=== PATIENT | male | born 1940 | race Caucasian/White ===

== ENCOUNTER 2016-11-20 19:37 | Inpatient (IN) | payer MEDICARE, MEDICAID ==
[~2016-11-20] VITALS: Ht 167.6 cm; Wt 70.3 kg
[~2016-11-20 19:37] MED LIST: ALLO100T25 PO; ALPR0.5T8 PO; AMIN30LI4 PO; AMLO10TA4 PO; ASPI81TA2 PO; ATOR10TA PO; CARV3.12 PO; CITA20TA19 PO; DEXT1CAP3 PO; DONE5TAB34 PO; ENAL10TA39 PO; FOLI0.8T23 PO; LAMO25TA5 PO; MEGE40TA PO; MIRT15TA7 PO; NAPR500T3 PO; OLAN5TAB6 SL; SENN8.6T6 PO; TAMS-12 PO; TEMA30CA5 PO
[2016-11-20] MEDS ORDERED: IV NS 0.9% 1,000 ML BAG IV ONE (20:00)
[2016-11-20] MEDS ORDERED: IV NS 0.9% 1,000 ML ONE (20:00)
[2016-11-20] MEDS ORDERED: IV SET PRIMARY 1 EA INFUS.SET MC ONE (20:00)
[2016-11-20 20:21] LABS: BASOPHILS # (AUTO) 0.1 /CMM (0.0-0.2); BASOPHILS % (AUTO) 0.6 % (0.0-2.0); DIFF TOTAL % 100 %; EOSINOPHILS % (AUTO) 0.4 % (0.0-6.0); HEMATOCRIT 34 % (39-51); HEMOGLOBIN 11.6 g/dL (13.5-17.5); LYMPHOCYTES # (AUTO) 1.5 /CMM (0.8-4.8); LYMPHOCYTES % (AUTO) 14.5 % (20.0-44.0); MEAN CORPUSCULAR HEMOGLOBIN 30 PG (26.0-33.0); MEAN CORPUSCULAR HGB CONC 34 g/dl (31.0-36.0); MEAN CORPUSCULAR VOLUME 89 fL (80-96); MONOCYTES # (AUTO) 1.1 /CMM (0.1-1.30); MONOCYTES % (AUTO) 11.2 % (2.0-12.0); NEUTROPHILS # (AUTO) 7.5 /CMM (1.8-8.9); NEUTROPHILS % (AUTO) 73.3 % (43.0-81.0); PLATELET COUNT (AUTO) 177 /CMM (150-450); RED BLOOD CELL COUNT(AUTO) 3.86 MIL/uL (4.5-6.0); WHITE BLOOD COUNT (AUTO) 10.2 K/uL (4.3-11.0)
[2016-11-20 20:31] LABS: CALCIUM, SERUM 11.2 mg/dL (8.5-10.1); CREATININE 4.7 mg/dL (0.6-1.3); POTASSIUM 3.4 mmol/L (3.5-5.1)
[2016-11-20 20:34] LABS: INR 1.09 (0.87-1.13); PROTHROMBIN TIME 11.4 SECS (9.5-12.7)
[2016-11-20 20:36] LABS: BILIRUBIN,DIRECT 0.1 mg/dL (0.0-0.2); BILIRUBIN,TOTAL 0.3 mg/dL (0.2-1.0); INDIRECT BILIRUBIN 0.2 mg/dL (0.0-1.1); TOTAL PROTEIN, SERUM 6.8 g/dL (6.4-8.2)
[2016-11-20 20:46] LABS: LACTIC ACID 0.7 mmol/L (0.4-2.0)
[2016-11-20 20:56] LABS: TROPONIN I 0.07 ng/mL (0.00-0.056)
[2016-11-20 21:01] LABS: THYROID STIMULATING HORMONE 2.717 uIU/mL (0.358-3.74)
[2016-11-20] MEDS ORDERED: IV D5W 250 ML IV ONE (21:22)
[2016-11-20] MEDS ORDERED: IV SET PRIMARY PUMP SET 1 EA INFUS.SET MC ONE (21:22)
[2016-11-20] MEDS ORDERED: VANCOMYCIN 1 GM VIAL ONE (21:22)
[2016-11-20] MEDS ORDERED: VANCOMYCIN 1 GM in IV D5W 250 ML IV ONE (21:30)
[2016-11-20] MEDS ORDERED: ENALAPRILAT DIHYD. (2.5MG/ML) 1.25 MG/ML VIAL IV ONE ×2 (21:42→22:00)
[2016-11-20] MEDS ORDERED: HYDROCODONE/APAP 5/325MG 1 EACH TABLET PO PRN (22:00)
[2016-11-20] MEDS ORDERED: ZOLPIDEM TARTRATE 5 MG TABLET PO PRN (22:00)
[2016-11-20] MEDS ORDERED: SENNOSIDES 8.6 MG TABLET PO PRN (22:00)
[2016-11-20] MEDS ORDERED: MAGNESIUM HYDROXIDE 30 ML UDC PO PRN (22:00)
[2016-11-20] MEDS ORDERED: Z GUARD REMEDY 2 OZ OINT TP PRN (22:00)
[2016-11-20] MEDS ORDERED: OLANZAPINE 5 MG/TAB.RAPDIS SL PRN (22:00)
[2016-11-20] MEDS ORDERED: ACETAMINOPHEN 325 MG TABLET PO PRN (22:00)
[2016-11-20] MEDS ORDERED: AMLODIPINE BESYLATE 10 MG TABLET PO SCH (22:00)
[2016-11-20] MEDS ORDERED: ONDANSETRON HCL/PF 4 MG/2 ML VIAL IVP PRN (22:00)
[2016-11-20] MEDS ORDERED: MAG HYDROX/AL HYDROX/SIMETH 30 ML UDC PO PRN (22:00)
[2016-11-20] MEDS ORDERED: ALPRAZOLAM 0.5 MG TABLET PO PRN (22:00)
[2016-11-20 22:15] VITALS: BP 139/85
[2016-11-20] MEDS ORDERED: ENALAPRILAT DIHYD. (2.5MG/ML) 1.25 MG/ML VIAL IV PRN (22:30)
[2016-11-20 23:00] VITALS: BP 139/85
[2016-11-20] MEDS ORDERED: MIRTAZAPINE 15 MG TABLET ONE (23:00)
[2016-11-20] MEDS ORDERED: ATORVASTATIN 10 MG TABLET ONE (23:01)
[2016-11-20] MEDS ORDERED: DONEPEZIL 5 MG TABLET ONE (23:01)
[2016-11-20] MEDS ORDERED: AMLODIPINE BESYLATE 10 MG TABLET ONE (23:02)
[2016-11-20] MEDS: ATORVASTATIN 10 MG TABLET PO SCH (23:18)
[2016-11-20] MEDS: DONEPEZIL 5 MG TABLET PO SCH (23:18)
[2016-11-20] MEDS: MIRTAZAPINE 15 MG TABLET PO SCH (23:19)
[2016-11-21] MEDS ORDERED: IV NS 0.9% 1,000 ML BAG IV PRN ×2 (01:30→03:30)
[2016-11-21 01:58] VITALS: BP 184/89
[2016-11-21] MEDS ORDERED: hydrALAZINE HCL 25 MG TABLET ONE (02:12)
[2016-11-21] MEDS ORDERED: hydrALAZINE HCL 25 MG TABLET PO PRN (02:30)
[2016-11-21] MEDS ORDERED: IV SET PRIMARY PUMP SET 1 EA INFUS.SET MC ONE (03:01)
[2016-11-21 04:00] VITALS: BP 158/59
[2016-11-21 07:00] VITALS: BP 131/66
[2016-11-21 08:13] LABS: CALCIUM, SERUM 10.8 mg/dL (8.5-10.1); PHOSPHORUS 3.9 mg/dL (2.5-4.9); POTASSIUM 3.4 mmol/L (3.5-5.1)
[2016-11-21 08:22] LABS: BASOPHILS % (AUTO) 0.3 % (0.0-2.0); DIFF TOTAL % 100 %; EOSINOPHILS # (AUTO) 0.1 /CMM (0.0-0.7); EOSINOPHILS % (AUTO) 1.3 % (0.0-6.0); HEMATOCRIT 31 % (39-51); HEMOGLOBIN 10.3 g/dL (13.5-17.5); LYMPHOCYTES # (AUTO) 1.2 /CMM (0.8-4.8); LYMPHOCYTES % (AUTO) 13.4 % (20.0-44.0); MEAN CORPUSCULAR HEMOGLOBIN 30 PG (26.0-33.0); MEAN CORPUSCULAR HGB CONC 34 g/dl (31.0-36.0); MEAN CORPUSCULAR VOLUME 90 fL (80-96); MONOCYTES # (AUTO) 1.1 /CMM (0.1-1.30); MONOCYTES % (AUTO) 12.6 % (2.0-12.0); NEUTROPHILS # (AUTO) 6.3 /CMM (1.8-8.9); NEUTROPHILS % (AUTO) 72.4 % (43.0-81.0); PLATELET COUNT (AUTO) 156 /CMM (150-450); RED BLOOD CELL COUNT(AUTO) 3.44 MIL/uL (4.5-6.0); WHITE BLOOD COUNT (AUTO) 8.7 K/uL (4.3-11.0)
[2016-11-21] MEDS ORDERED: Z GUARD REMEDY 2 OZ OINT TP PRN (08:30)
[2016-11-21] MEDS: LamoTRIgine 25 MG TABLET PO SCH (09:03)
[2016-11-21] MEDS: CITALOPRAM HYDROBROMIDE 20 MG TABLET PO SCH (09:03)
[2016-11-21] MEDS: ASPIRIN 81 MG TAB.CHEW PO SCH (09:03)
[2016-11-21] MEDS: NAPROXEN 250 MG TABLET PO SCH ×2 (09:04→16:54)
[2016-11-21] MEDS: TAMSULOSIN 0.4 MG CAP.SR.24H PO SCH (09:04)
[2016-11-21] MEDS: MEGESTROL ACETATE 40 MG TABLET PO SCH ×2 (09:04→16:54)
[2016-11-21] MEDS: PANTOPRAZOLE 40 MG TABLET.DR PO SCH (09:04)
[2016-11-21] MEDS: ALLOPURINOL 100 MG TABLET PO SCH (09:04)
[2016-11-21] MEDS: CARVEDILOL 3.125 MG TABLET PO SCH ×2 (09:05→21:00)
[2016-11-21] MEDS: Z GUARD REMEDY 2 OZ OINT TP SCH ×2 (11:31→17:49)
[2016-11-21 12:00] VITALS: BP 151/77
[2016-11-21 16:00] VITALS: BP 142/66
[2016-11-21] MEDS: RENAL NOVASOURCE (8OZ) 1 EA BOX PO SCH (18:30)
[2016-11-21 20:00] VITALS: BP 122/50
[2016-11-21] MEDS: MIRTAZAPINE 15 MG TABLET PO SCH (21:44)
[2016-11-21] MEDS: DONEPEZIL 5 MG TABLET PO SCH (21:44)
[2016-11-21] MEDS: ATORVASTATIN 10 MG TABLET PO SCH (21:44)
[2016-11-21] MEDS: IV NS 0.9% 1,000 ML IV PRN (22:31)
[2016-11-21] MEDS ORDERED: OLANZAPINE 10 MG VIAL IM PRN (23:30)
[2016-11-22] VITALS: BP 146/76
[2016-11-22 04:00] VITALS: BP 135/72
[2016-11-22 06:58] VITALS: BP 140/70
[2016-11-22] MEDS: RENAL NOVASOURCE (8OZ) 1 EA BOX PO SCH ×2 (08:00→17:51)
[2016-11-22 08:26] LABS: BASOPHILS % (AUTO) 0.5 % (0.0-2.0); DIFF TOTAL % 100 %; EOSINOPHILS # (AUTO) 0.3 /CMM (0.0-0.7); EOSINOPHILS % (AUTO) 4.7 % (0.0-6.0); HEMATOCRIT 30 % (39-51); HEMOGLOBIN 10.1 g/dL (13.5-17.5); LYMPHOCYTES # (AUTO) 1.1 /CMM (0.8-4.8); LYMPHOCYTES % (AUTO) 17.7 % (20.0-44.0); MEAN CORPUSCULAR HEMOGLOBIN 30 PG (26.0-33.0); MEAN CORPUSCULAR HGB CONC 34 g/dl (31.0-36.0); MEAN CORPUSCULAR VOLUME 89 fL (80-96); MONOCYTES # (AUTO) 0.9 /CMM (0.1-1.30); MONOCYTES % (AUTO) 13.8 % (2.0-12.0); NEUTROPHILS # (AUTO) 4.1 /CMM (1.8-8.9); NEUTROPHILS % (AUTO) 63.3 % (43.0-81.0); PLATELET COUNT (AUTO) 126 /CMM (150-450); RED BLOOD CELL COUNT(AUTO) 3.32 MIL/uL (4.5-6.0); WHITE BLOOD COUNT (AUTO) 6.4 K/uL (4.3-11.0)
[2016-11-22 08:41] LABS: CALCIUM, SERUM 9.4 mg/dL (8.5-10.1); CREATININE 3.8 mg/dL (0.6-1.3); PHOSPHORUS 3.3 mg/dL (2.5-4.9); POTASSIUM 3.5 mmol/L (3.5-5.1)
[2016-11-22] MEDS ORDERED: ALBUMIN 25% 25 GM in PREMIX 1 EA IV PRN (09:00)
[2016-11-22] MEDS: Z GUARD REMEDY 2 OZ OINT TP SCH ×2 (09:00→17:50)
[2016-11-22] MEDS: MEGESTROL ACETATE 40 MG TABLET PO SCH ×2 (11:35→17:50)
[2016-11-22] MEDS: TAMSULOSIN 0.4 MG CAP.SR.24H PO SCH (11:35)
[2016-11-22] MEDS: CITALOPRAM HYDROBROMIDE 20 MG TABLET PO SCH (11:36)
[2016-11-22] MEDS: ASPIRIN 81 MG TAB.CHEW PO SCH (11:36)
[2016-11-22] MEDS: LamoTRIgine 25 MG TABLET PO SCH (11:36)
[2016-11-22] MEDS: PANTOPRAZOLE 40 MG TABLET.DR PO SCH (11:36)
[2016-11-22] MEDS: ALLOPURINOL 100 MG TABLET PO SCH (11:37)
[2016-11-22] MEDS: NAPROXEN 250 MG TABLET PO SCH (11:37)
[2016-11-22] MEDS: CARVEDILOL 3.125 MG TABLET PO SCH ×2 (11:38→21:55)
[2016-11-22] MEDS: AMLODIPINE BESYLATE 10 MG TABLET PO SCH (11:43)
[2016-11-22] MEDS ORDERED: NAPROXEN 250 MG TABLET PO PRN (12:30)
[2016-11-22 16:00] VITALS: BP 131/66
[2016-11-22 20:00] VITALS: BP 112/68
[2016-11-22] MEDS: MIRTAZAPINE 15 MG TABLET PO SCH (21:55)
[2016-11-22] MEDS: ATORVASTATIN 10 MG TABLET PO SCH (21:55)
[2016-11-22] MEDS: DONEPEZIL 5 MG TABLET PO SCH (21:55)
[2016-11-22 22:00] VITALS: BP 117/55
[2016-11-23] MEDS: IV NS 0.9% 1,000 ML IV PRN (04:10)
[2016-11-23 07:04] LABS: CALCIUM, SERUM 9.4 mg/dL (8.5-10.1); CREATININE 2.9 mg/dL (0.6-1.3); POTASSIUM 3.4 mmol/L (3.5-5.1)
[2016-11-23 08:00] VITALS: BP 138/53
[2016-11-23] MEDS: PANTOPRAZOLE 40 MG TABLET.DR PO SCH (09:09)
[2016-11-23] MEDS: ALLOPURINOL 100 MG TABLET PO SCH (09:09)
[2016-11-23] MEDS: ASPIRIN 81 MG TAB.CHEW PO SCH (09:09)
[2016-11-23] MEDS: MEGESTROL ACETATE 40 MG TABLET PO SCH ×2 (09:09→17:05)
[2016-11-23] MEDS: LamoTRIgine 25 MG TABLET PO SCH (09:09)
[2016-11-23] MEDS: OLANZAPINE 2.5 MG TABLET PO SCH ×2 (09:09→17:05)
[2016-11-23] MEDS: RENAL NOVASOURCE (8OZ) 1 EA BOX PO SCH ×2 (09:11→17:05)
[2016-11-23] MEDS: CARVEDILOL 3.125 MG TABLET PO SCH ×2 (09:11→21:10)
[2016-11-23] MEDS: Z GUARD REMEDY 2 OZ OINT TP SCH ×2 (09:12→18:11)
[2016-11-23] MEDS: TAMSULOSIN 0.4 MG CAP.SR.24H PO SCH (09:49)
[2016-11-23 10:11] LABS: VIT D, 25-HYDROXY 57.9 ng/mL (30.0-100.0)
[2016-11-23] MEDS ORDERED: POTASSIUM CHLORIDE 20 MEQ TAB.PRT.SR PO ONE (11:00)
[2016-11-23 16:00] VITALS: BP 166/85
[2016-11-23 20:00] VITALS: BP 160/78
[2016-11-23] MEDS: DONEPEZIL 5 MG TABLET PO SCH (21:09)
[2016-11-23] MEDS: MIRTAZAPINE 15 MG TABLET PO SCH (21:11)
[2016-11-23] MEDS: ATORVASTATIN 10 MG TABLET PO SCH (21:11)
[2016-11-23 22:00] VITALS: BP 117/55
[2016-11-24] MEDS: IV NS 0.9% 1,000 ML IV PRN (01:09)
[2016-11-24 07:44] LABS: BASOPHILS % (AUTO) 0.4 % (0.0-2.0); EOSINOPHILS % (AUTO) 3.8 % (0.0-6.0); HEMATOCRIT 26 % (39-51); LYMPHOCYTES % (AUTO) 24.2 % (20.0-44.0); MEAN CORPUSCULAR HEMOGLOBIN 30 PG (26.0-33.0); MEAN CORPUSCULAR HGB CONC 34 g/dl (31.0-36.0); MEAN CORPUSCULAR VOLUME 88 fL (80-96); NEUTROPHILS % (AUTO) 57.6 % (43.0-81.0); PLATELET COUNT (AUTO) 132 /CMM (150-450); WHITE BLOOD COUNT (AUTO) 6.3 K/uL (4.3-11.0)
[2016-11-24 07:45] LABS: DIFF TOTAL % 100 %; EOSINOPHILS # (AUTO) 0.2 /CMM (0.0-0.7); LYMPHOCYTES # (AUTO) 1.5 /CMM (0.8-4.8); MONOCYTES # (AUTO) 0.9 /CMM (0.1-1.30); NEUTROPHILS # (AUTO) 3.6 /CMM (1.8-8.9)
[2016-11-24 08:00] VITALS: BP 144/79
[2016-11-24 08:14] LABS: CALCIUM, SERUM 10.1 mg/dL (8.5-10.1); CREATININE 3.8 mg/dL (0.6-1.3); PHOSPHORUS 3.9 mg/dL (2.5-4.9)
[2016-11-24] MEDS ORDERED: OLAN10VI IM (09:20)
[2016-11-24] MEDS ORDERED: Olanzapine PO (09:20)
[2016-11-24] MEDS ORDERED: Nutritional Supplement PO (09:20)
[2016-11-24] MEDS: PANTOPRAZOLE 40 MG TABLET.DR PO SCH (09:28)
[2016-11-24] MEDS: ASPIRIN 81 MG TAB.CHEW PO SCH (09:28)
[2016-11-24] MEDS: MEGESTROL ACETATE 40 MG TABLET PO SCH (09:28)
[2016-11-24] MEDS: TAMSULOSIN 0.4 MG CAP.SR.24H PO SCH (09:28)
[2016-11-24] MEDS: ALLOPURINOL 100 MG TABLET PO SCH (09:28)
[2016-11-24] MEDS: CARVEDILOL 3.125 MG TABLET PO SCH (09:29)
[2016-11-24] MEDS: LamoTRIgine 25 MG TABLET PO SCH (09:29)
[2016-11-24] MEDS: OLANZAPINE 2.5 MG TABLET PO SCH (09:29)
[2016-11-24] MEDS: Z GUARD REMEDY 2 OZ OINT TP SCH (09:30)
[2016-11-24 09:31] VITALS: BP 144/79
[2016-11-24] MEDS: AMLODIPINE BESYLATE 10 MG TABLET PO SCH (09:31)
[2016-11-24] MEDS: RENAL NOVASOURCE (8OZ) 1 EA BOX PO SCH (09:31)
== END 2016-11-24 14:30 | DRG 280 ==
LOC: ER 19:38 → TELE 22:08 → MED 11-22 10:47
PROVIDERS: ADMIT Internal Medicine; ATTEND Internal Medicine
PROC: 5A1D60Z (ICD-10-PCS; principal; 2016-11-21)
DX: I13.2 Hypertensive heart and chronic kidney disease with heart failure and with stage 5 chronic kidney disease, or end stage renal disease (principal); I21.4 Non-ST elevation (NSTEMI) myocardial infarction; N18.6 End stage renal disease; G93.41 Metabolic encephalopathy; I50.32 Chronic diastolic (congestive) heart failure; F33.9 Major depressive disorder, recurrent, unspecified; E11.22 Type 2 diabetes mellitus with diabetic chronic kidney disease; Z99.2 Dependence on renal dialysis; D63.8 Anemia in other chronic diseases classified elsewhere; E03.9 Hypothyroidism, unspecified; E83.52 Hypercalcemia; E87.6 Hypokalemia; E88.09 Other disorders of plasma-protein metabolism, not elsewhere classified; I25.10 Atherosclerotic heart disease of native coronary artery without angina pectoris; I25.2 Old myocardial infarction; K21.9 Gastro-esophageal reflux disease without esophagitis; Z86.73 Personal history of transient ischemic attack (TIA), and cerebral infarction without residual deficits; Z66 Do not resuscitate; F41.9 Anxiety disorder, unspecified; M10.9 Gout, unspecified; J01.90 Acute sinusitis, unspecified; Z87.11 Personal history of peptic ulcer disease; Z98.890 Other specified postprocedural states; F01.50 Vascular dementia, unspecified severity, without behavioral disturbance, psychotic disturbance, mood disturbance, and anxiety
CPT/HCPCS: 36415; 70450-TC; 71010-TC; 80048-TC; 80061-TC; 80076-TC; 82140-TC; 82306; 82652; 83605-TC; 83735-TC; 83970; 84100-TC; 84443-TC; 84484-TC; 85025-TC; 85730-TC; 87040-TC; 87081-TC; 92521; 94799-TC; 97001-TC; A4216; A4606; A6403; C1751; J3370; J3490; J7030; J7060; P9047; Z7610

== ENCOUNTER 2016-11-26 20:12 | Inpatient (IN) | payer MEDICARE, MEDICAID ==
[~2016-11-26] VITALS: Ht 170.2 cm; Wt 60.3 kg
[~2016-11-26 20:12] MED LIST changes: -DEXT1CAP3 PO; +Nutritional Supplement PO; +OLAN10VI IM; +Olanzapine PO; -TEMA30CA5 PO
[2016-11-26 21:04] LABS: BASOPHILS # (AUTO) 0.3 /CMM (0.0-0.2); BASOPHILS % (AUTO) 3.2 % (0.0-2.0); DIFF TOTAL % 100 %; EOSINOPHILS # (AUTO) 0.1 /CMM (0.0-0.7); EOSINOPHILS % (AUTO) 1.3 % (0.0-6.0); HEMATOCRIT 30 % (39-51); HEMOGLOBIN 10.4 g/dL (13.5-17.5); MEAN CORPUSCULAR HEMOGLOBIN 31 PG (26.0-33.0); MEAN CORPUSCULAR HGB CONC 35 g/dl (31.0-36.0); MEAN CORPUSCULAR VOLUME 88 fL (80-96); MONOCYTES # (AUTO) 0.8 /CMM (0.1-1.30); MONOCYTES % (AUTO) 9.3 % (2.0-12.0); NEUTROPHILS # (AUTO) 5.7 /CMM (1.8-8.9); NEUTROPHILS % (AUTO) 64.2 % (43.0-81.0); PLATELET COUNT (AUTO) 189 /CMM (150-450); RED BLOOD CELL COUNT(AUTO) 3.38 MIL/uL (4.5-6.0); WHITE BLOOD COUNT (AUTO) 8.9 K/uL (4.3-11.0)
[2016-11-26 21:18] LABS: INR 1.11 (0.87-1.13); PROTHROMBIN TIME 11.7 SECS (9.5-12.7)
[2016-11-26 21:21] LABS: CALCIUM, SERUM 10.2 mg/dL (8.5-10.1); CREATININE 3.2 mg/dL (0.6-1.3); POTASSIUM 4.4 mmol/L (3.5-5.1)
[2016-11-26] MEDS ORDERED: LIDOCAINE 2% JEL UROJET 10 ML MM ONE (21:32)
[2016-11-26 22:07] LABS: KETONES,URINE NEGATIVE (NEGATIVE); LEUKOCYTE ESTERASE ,URINE NEGATIVE (NEGATIVE)
[2016-11-26 22:16] LABS: ADD UA MICROSCOPIC YES
[2016-11-26 22:17] LABS: ADD URINE CULTURE NO; RBC,URINE 0-2 /HPF (0-2); WBC,URINE 0-2 /HPF (0-3)
[2016-11-27] VITALS: BP 151/71
[2016-11-27] MEDS ORDERED: Z GUARD REMEDY 2 OZ OINT TP PRN
[2016-11-27] MEDS ORDERED: ONDANSETRON HCL/PF 4 MG/2 ML VIAL IVP PRN
[2016-11-27] MEDS ORDERED: ACETAMINOPHEN 325 MG TABLET PO PRN
[2016-11-27] MEDS ORDERED: ALPRAZOLAM 0.5 MG TABLET PO PRN
[2016-11-27 07:33] LABS: CALCIUM, SERUM 10.1 mg/dL (8.5-10.1); CREATININE 3.6 mg/dL (0.6-1.3); PHOSPHORUS 2.9 mg/dL (2.5-4.9); POTASSIUM 3.9 mmol/L (3.5-5.1)
[2016-11-27 07:53] LABS: BASOPHILS % (AUTO) 0.4 % (0.0-2.0); DIFF TOTAL % 100 %; EOSINOPHILS # (AUTO) 0.2 /CMM (0.0-0.7); EOSINOPHILS % (AUTO) 2.1 % (0.0-6.0); HEMATOCRIT 28 % (39-51); HEMOGLOBIN 9.4 g/dL (13.5-17.5); LYMPHOCYTES # (AUTO) 2.8 /CMM (0.8-4.8); LYMPHOCYTES % (AUTO) 33.1 % (20.0-44.0); MEAN CORPUSCULAR HEMOGLOBIN 30 PG (26.0-33.0); MEAN CORPUSCULAR HGB CONC 33 g/dl (31.0-36.0); MEAN CORPUSCULAR VOLUME 90 fL (80-96); MONOCYTES # (AUTO) 0.9 /CMM (0.1-1.30); MONOCYTES % (AUTO) 10.6 % (2.0-12.0); NEUTROPHILS # (AUTO) 4.5 /CMM (1.8-8.9); NEUTROPHILS % (AUTO) 53.8 % (43.0-81.0); PLATELET COUNT (AUTO) 166 /CMM (150-450); RED BLOOD CELL COUNT(AUTO) 3.13 MIL/uL (4.5-6.0); WHITE BLOOD COUNT (AUTO) 8.4 K/uL (4.3-11.0)
[2016-11-27 08:00] VITALS: BP 142/53
[2016-11-27] MEDS: MEGESTROL ACETATE SUSP 400 MG/10 ML UDC PO SCH ×2 (08:27→16:46)
[2016-11-27] MEDS: ASPIRIN 81 MG TAB.CHEW PO SCH (08:27)
[2016-11-27] MEDS: TAMSULOSIN 0.4 MG CAP.SR.24H PO SCH (08:27)
[2016-11-27] MEDS: PANTOPRAZOLE 40 MG TABLET.DR PO SCH (08:28)
[2016-11-27] MEDS: ALLOPURINOL 100 MG TABLET PO SCH (08:28)
[2016-11-27] MEDS: CARVEDILOL 3.125 MG TABLET PO SCH ×2 (08:28→16:46)
[2016-11-27] MEDS: LamoTRIgine 25 MG TABLET PO SCH (08:28)
[2016-11-27] MEDS: CITALOPRAM HYDROBROMIDE 20 MG TABLET PO SCH (08:28)
[2016-11-27] MEDS: ENALAPRIL MALEATE (10 MG) 10 MG TABLET PO SCH (08:28)
[2016-11-27] MEDS: AMLODIPINE BESYLATE 10 MG TABLET PO SCH (08:43)
[2016-11-27] MEDS ORDERED: EPOETIN ALFA (10,000 UNIT) 10,000 UNIT/ML VIAL IV ONE (11:00)
[2016-11-27] MEDS ORDERED: IV SET PRIMARY PUMP SET 1 EA INFUS.SET MC ONE (11:11)
[2016-11-27] MEDS: IV NS 0.9% 1,000 ML IV PRN (11:21)
[2016-11-27 16:10] VITALS: BP 142/53
[2016-11-27 20:00] VITALS: BP 139/69
[2016-11-27] MEDS: DONEPEZIL 5 MG TABLET PO SCH (21:12)
[2016-11-27] MEDS: ATORVASTATIN 10 MG TABLET PO SCH (21:12)
[2016-11-27] MEDS: MIRTAZAPINE 15 MG TABLET PO SCH (21:13)
[2016-11-27] MEDS: HEPARIN SODIUM, PORCINE 5000 UNITS/1 ML VIAL SQ SCH (21:21)
[2016-11-28] MEDS: PANTOPRAZOLE 40 MG TABLET.DR PO SCH (06:52)
[2016-11-28 07:19] LABS: BASOPHILS % (AUTO) 0.2 % (0.0-2.0); DIFF TOTAL % 100 %; EOSINOPHILS # (AUTO) 0.2 /CMM (0.0-0.7); EOSINOPHILS % (AUTO) 1.9 % (0.0-6.0); HEMATOCRIT 28 % (39-51); HEMOGLOBIN 9.4 g/dL (13.5-17.5); LYMPHOCYTES % (AUTO) 18.8 % (20.0-44.0); MEAN CORPUSCULAR HEMOGLOBIN 30 PG (26.0-33.0); MEAN CORPUSCULAR HGB CONC 34 g/dl (31.0-36.0); MEAN CORPUSCULAR VOLUME 90 fL (80-96); MONOCYTES % (AUTO) 9.6 % (2.0-12.0); NEUTROPHILS # (AUTO) 7.4 /CMM (1.8-8.9); NEUTROPHILS % (AUTO) 69.5 % (43.0-81.0); PLATELET COUNT (AUTO) 155 /CMM (150-450); WHITE BLOOD COUNT (AUTO) 10.7 K/uL (4.3-11.0)
[2016-11-28 07:57] LABS: CALCIUM, SERUM 9.2 mg/dL (8.5-10.1); CREATININE 3.2 mg/dL (0.6-1.3); PHOSPHORUS 2.5 mg/dL (2.5-4.9); POTASSIUM 3.8 mmol/L (3.5-5.1)
[2016-11-28 08:00] VITALS: BP 155/80
[2016-11-28] MEDS: MEGESTROL ACETATE SUSP 400 MG/10 ML UDC PO SCH ×2 (08:57→16:09)
[2016-11-28] MEDS: ALLOPURINOL 100 MG TABLET PO SCH (08:57)
[2016-11-28] MEDS: ASPIRIN 81 MG TAB.CHEW PO SCH (08:57)
[2016-11-28] MEDS: LamoTRIgine 25 MG TABLET PO SCH (08:57)
[2016-11-28] MEDS: TAMSULOSIN 0.4 MG CAP.SR.24H PO SCH (08:57)
[2016-11-28] MEDS: ENALAPRIL MALEATE (10 MG) 10 MG TABLET PO SCH (08:58)
[2016-11-28] MEDS: CARVEDILOL 3.125 MG TABLET PO SCH ×2 (08:58→16:58)
[2016-11-28] MEDS: CITALOPRAM HYDROBROMIDE 20 MG TABLET PO SCH (08:58)
[2016-11-28] MEDS: HEPARIN SODIUM, PORCINE 5000 UNITS/1 ML VIAL SQ SCH ×2 (09:05→21:47)
[2016-11-28 16:59] VITALS: BP 140/77
[2016-11-28 20:00] VITALS: BP 141/66
[2016-11-28] MEDS: DONEPEZIL 5 MG TABLET PO SCH (21:29)
[2016-11-28] MEDS: MIRTAZAPINE 15 MG TABLET PO SCH (21:29)
[2016-11-28] MEDS: ATORVASTATIN 10 MG TABLET PO SCH (21:29)
[2016-11-28] MEDS: IV NS 0.9% 1,000 ML IV PRN (22:11)
[2016-11-29 08:00] VITALS: BP 164/70
[2016-11-29] MEDS: TAMSULOSIN 0.4 MG CAP.SR.24H PO SCH (09:08)
[2016-11-29] MEDS: CITALOPRAM HYDROBROMIDE 20 MG TABLET PO SCH (09:08)
[2016-11-29] MEDS: ALLOPURINOL 100 MG TABLET PO SCH (09:08)
[2016-11-29] MEDS: LamoTRIgine 25 MG TABLET PO SCH (09:08)
[2016-11-29] MEDS: MEGESTROL ACETATE SUSP 400 MG/10 ML UDC PO SCH ×2 (09:08→18:12)
[2016-11-29] MEDS: ENALAPRIL MALEATE (10 MG) 10 MG TABLET PO SCH (09:09)
[2016-11-29] MEDS: PANTOPRAZOLE 40 MG TABLET.DR PO SCH (09:09)
[2016-11-29] MEDS: ASPIRIN 81 MG TAB.CHEW PO SCH (09:09)
[2016-11-29] MEDS: CARVEDILOL 3.125 MG TABLET PO SCH ×2 (09:10→18:13)
[2016-11-29] MEDS: HEPARIN SODIUM, PORCINE 5000 UNITS/1 ML VIAL SQ SCH ×2 (09:11→21:22)
[2016-11-29] MEDS: AMLODIPINE BESYLATE 10 MG TABLET PO SCH (09:12)
[2016-11-29 16:00] VITALS: BP 154/65
[2016-11-29] MEDS ORDERED: RENAL NOVASOURCE (8OZ) 1 EA BOX PO SCH (17:00)
[2016-11-29 20:00] VITALS: BP 129/56
[2016-11-29] MEDS: ATORVASTATIN 10 MG TABLET PO SCH (21:21)
[2016-11-29] MEDS: DONEPEZIL 5 MG TABLET PO SCH (21:21)
[2016-11-29] MEDS: MIRTAZAPINE 15 MG TABLET PO SCH (21:21)
== END 2016-11-30 00:22 | DRG 291 ==
LOC: ER 20:13 → MED 22:17
PROVIDERS: ADMIT Nurse Practitioner Acute Care; ATTEND Nurse Practitioner Acute Care
PROC: 5A1D60Z (ICD-10-PCS; principal; 2016-11-28)
DX: I13.2 Hypertensive heart and chronic kidney disease with heart failure and with stage 5 chronic kidney disease, or end stage renal disease (principal); N18.6 End stage renal disease; G93.40 Encephalopathy, unspecified; E43 Unspecified severe protein-calorie malnutrition; F03.91 Unspecified dementia, unspecified severity, with behavioral disturbance; I50.42 Chronic combined systolic (congestive) and diastolic (congestive) heart failure; Z68.1 Body mass index [BMI] 19.9 or less, adult; R62.7 Adult failure to thrive; E11.22 Type 2 diabetes mellitus with diabetic chronic kidney disease; I25.10 Atherosclerotic heart disease of native coronary artery without angina pectoris; Z99.2 Dependence on renal dialysis; E78.00 Pure hypercholesterolemia, unspecified; E78.5 Hyperlipidemia, unspecified; D63.1 Anemia in chronic kidney disease; E83.52 Hypercalcemia; E03.9 Hypothyroidism, unspecified; Z86.73 Personal history of transient ischemic attack (TIA), and cerebral infarction without residual deficits
CPT/HCPCS: 36415; 71010-TC; 80048-TC; 81000-TC; 83735-TC; 84100-TC; 85025-TC; 85730-TC; 87081-TC; 90935-TC; 92611-TC; A4606; A6402; J0885; J1644; J3490; J7030; Z7610

== ENCOUNTER 2016-12-04 17:58 | Inpatient (IN) | payer MEDICARE, MEDICAID ==
[~2016-12-04] VITALS: Ht 172.7 cm; Wt 60.8 kg
[2016-12-04 18:41] LABS: BASOPHILS # (AUTO) 0.1 /CMM (0.0-0.2); BASOPHILS % (AUTO) 0.8 % (0.0-2.0); DIFF TOTAL % 100 %; EOSINOPHILS % (AUTO) 0.1 % (0.0-6.0); HEMATOCRIT 23 % (39-51); HEMOGLOBIN 7.9 g/dL (13.5-17.5); LYMPHOCYTES # (AUTO) 0.8 /CMM (0.8-4.8); LYMPHOCYTES % (AUTO) 4.7 % (20.0-44.0); MEAN CORPUSCULAR HEMOGLOBIN 30 PG (26.0-33.0); MEAN CORPUSCULAR HGB CONC 34 g/dl (31.0-36.0); MEAN CORPUSCULAR VOLUME 89 fL (80-96); MONOCYTES # (AUTO) 0.4 /CMM (0.1-1.30); MONOCYTES % (AUTO) 2.2 % (2.0-12.0); NEUTROPHILS # (AUTO) 15.4 /CMM (1.8-8.9); NEUTROPHILS % (AUTO) 92.2 % (43.0-81.0); PLATELET COUNT (AUTO) 209 /CMM (150-450); RED BLOOD CELL COUNT(AUTO) 2.61 MIL/uL (4.5-6.0); WHITE BLOOD COUNT (AUTO) 16.7 K/uL (4.3-11.0)
[2016-12-04 18:53] LABS: CALCIUM, SERUM 9.2 mg/dL (8.5-10.1); CREATININE 5.3 mg/dL (0.6-1.3); POTASSIUM 3.5 mmol/L (3.5-5.1)
[2016-12-04 19:01] LABS: ALBUMIN 1.8 g/dL (3.4-5.0); BILIRUBIN,DIRECT 0.1 mg/dL (0.0-0.2); BILIRUBIN,TOTAL 0.7 mg/dL (0.2-1.0); INDIRECT BILIRUBIN 0.6 mg/dL (0.0-1.1); TOTAL PROTEIN, SERUM 5.9 g/dL (6.4-8.2)
[2016-12-04 19:04] LABS: LACTIC ACID 1.3 mmol/L (0.4-2.0)
[2016-12-04 19:09] LABS: INR 1.05 (0.87-1.13)
[2016-12-04 19:13] LABS: TROPONIN I 0.702 ng/mL (0.00-0.056)
[2016-12-04] MEDS ORDERED: IMIPENEM/CILASTATIN 500 MG in IV NS 0.9% 100 ML IV ONE (19:30)
[2016-12-04] MEDS ORDERED: VANCOMYCIN 1 GM in IV D5W 250 ML IV ONE (19:30)
[2016-12-04] MEDS ORDERED: IV SET PRIMARY PUMP SET 1 EA INFUS.SET MC ONE ×2 (19:43→19:53)
[2016-12-04 19:45] LABS: ABG BASE EXCESS 9.6 mmol/L; ABG HCO3 33.6 mmol/L; ABG PCO2 43.1 mmHg (35.0-45.0); ABG PO2 52.4 mmHg (75.0-100.0); ABG TOTAL HEMOGLOBIN 10.9 G/dL (13.5-18.0); ALLEN TEST Pass; AaDO2 96.4 mmHg; O2Hb 86.1 % (94.0-97.0)
[2016-12-04] MEDS ORDERED: MEROPENEM 500 MG in IV NS 0.9% 50 ML IV ONE (20:00)
[2016-12-04 20:21] LABS: KETONES,URINE Negative (NEGATIVE); LEUKOCYTE ESTERASE ,URINE Large (NEGATIVE); PH,URINE 8.5 (5.0-8.0)
[2016-12-04 20:24] LABS: ADD UA MICROSCOPIC YES
[2016-12-04 20:36] LABS: ADD URINE CULTURE YES; WBC,URINE TOO NUMEROUS TO COUN /HPF (0-3)
[2016-12-04] MEDS ORDERED: MAG HYDROX/AL HYDROX/SIMETH 30 ML UDC PO PRN (21:00)
[2016-12-04] MEDS ORDERED: ACETAMINOPHEN 325 MG TABLET PO PRN (21:00)
[2016-12-04] MEDS ORDERED: MAGNESIUM HYDROXIDE 30 ML UDC PO PRN (21:00)
[2016-12-04] MEDS ORDERED: ONDANSETRON HCL/PF 4 MG/2 ML VIAL IVP PRN (21:00)
[2016-12-04] MEDS ORDERED: ACETAMINOPHEN 650 MG/SUPP.RECT RC PRN (21:00)
[2016-12-04] MEDS ORDERED: SENNOSIDES 8.6 MG TABLET PO PRN (21:00)
[2016-12-04] MEDS ORDERED: Z GUARD REMEDY 2 OZ OINT TP PRN (21:00)
[2016-12-04] MEDS ORDERED: FEE PK DOSING 1 MIN EA MC ONE (21:04)
[2016-12-04 21:45] VITALS: BP 115/59
[2016-12-04] MEDS ORDERED: AMLODIPINE BESYLATE 10 MG TABLET ONE (22:06)
[2016-12-04] MEDS: ATORVASTATIN 10 MG TABLET PO SCH (22:40)
[2016-12-04] MEDS: AMLODIPINE BESYLATE 10 MG TABLET PO SCH (22:40)
[2016-12-04] MEDS: DONEPEZIL 5 MG TABLET PO SCH (22:41)
[2016-12-05] VITALS: BP 115/50
[2016-12-05 04:00] VITALS: BP 92/42
[2016-12-05 06:28] LABS: BASOPHILS % (AUTO) 0.1 % (0.0-2.0); DIFF TOTAL % 100 %; EOSINOPHILS # (AUTO) 0.1 /CMM (0.0-0.7); EOSINOPHILS % (AUTO) 0.5 % (0.0-6.0); HEMATOCRIT 25 % (39-51); HEMOGLOBIN 8.2 g/dL (13.5-17.5); LYMPHOCYTES # (AUTO) 1.1 /CMM (0.8-4.8); LYMPHOCYTES % (AUTO) 7.3 % (20.0-44.0); MEAN CORPUSCULAR HEMOGLOBIN 30 PG (26.0-33.0); MEAN CORPUSCULAR HGB CONC 34 g/dl (31.0-36.0); MEAN CORPUSCULAR VOLUME 91 fL (80-96); MONOCYTES # (AUTO) 0.2 /CMM (0.1-1.30); NEUTROPHILS # (AUTO) 13.2 /CMM (1.8-8.9); NEUTROPHILS % (AUTO) 91.1 % (43.0-81.0); PLATELET COUNT (AUTO) 207 /CMM (150-450); RED BLOOD CELL COUNT(AUTO) 2.71 MIL/uL (4.5-6.0); WHITE BLOOD COUNT (AUTO) 14.5 K/uL (4.3-11.0)
[2016-12-05 06:54] LABS: CALCIUM, SERUM 9.6 mg/dL (8.5-10.1); CREATININE 5.9 mg/dL (0.6-1.3); POTASSIUM 3.7 mmol/L (3.5-5.1)
[2016-12-05 08:00] VITALS: BP 127/46
[2016-12-05] MEDS: VIT B CMPLX 3/FA/VIT C/BIOTIN 1 TAB TABLET PO SCH (09:16)
[2016-12-05] MEDS: MEGESTROL ACETATE 40 MG TABLET PO SCH ×2 (09:16→16:37)
[2016-12-05] MEDS: CARVEDILOL 3.125 MG TABLET PO SCH ×2 (09:17→16:39)
[2016-12-05] MEDS: TAMSULOSIN 0.4 MG CAP.SR.24H PO SCH (09:17)
[2016-12-05] MEDS: RENAL NOVASOURCE (8OZ) 1 EA BOX PO SCH ×2 (09:17→16:35)
[2016-12-05] MEDS: PANTOPRAZOLE 40 MG TABLET.DR PO SCH (09:17)
[2016-12-05] MEDS: PROSOURCE / PROSTAT (PYXIS) 30 ML UDC PO SCH (09:18)
[2016-12-05] MEDS: ALLOPURINOL 100 MG TABLET PO SCH (09:18)
[2016-12-05] MEDS: HEPARIN SODIUM, PORCINE 5000 UNITS/1 ML VIAL SQ SCH ×2 (09:19→21:27)
[2016-12-05] MEDS: ASPIRIN 81 MG TAB.CHEW PO SCH (09:23)
[2016-12-05] MEDS: LamoTRIgine 25 MG TABLET PO SCH (09:28)
[2016-12-05] MEDS: ENALAPRIL MALEATE (10 MG) 10 MG TABLET PO SCH (09:28)
[2016-12-05 12:00] VITALS: BP 132/50
[2016-12-05 16:00] VITALS: BP 121/57
[2016-12-05] MEDS: Z GUARD REMEDY 2 OZ OINT TP SCH (16:36)
[2016-12-05] MEDS: HYDROGEL DRESSING 90 GM TUBE TP SCH (16:37)
[2016-12-05 20:00] VITALS: BP_SYST 110; BP_SYST 113; BP_SYST 158; BP_DIAS 55; BP_DIAS 65; BP_DIAS 66
[2016-12-05] MEDS: MEROPENEM 500 MG in IV NS 0.9% 50 ML IV SCH (21:13)
[2016-12-05] MEDS: ATORVASTATIN 10 MG TABLET PO SCH (21:13)
[2016-12-05] MEDS: DONEPEZIL 5 MG TABLET PO SCH (21:13)
[2016-12-05] MEDS ORDERED: IV SET PRIMARY PUMP SET 1 EA INFUS.SET MC ONE (21:41)
[2016-12-05] MEDS ORDERED: IV NS 0.9% 250 ML IV ONE (21:41)
[2016-12-05] MEDS ORDERED: SECONDARY IV SET 1 EA INFUS.SET MC ONE (21:44)
[2016-12-05] MEDS: VANCOMYCIN 500 MG in IV D5W 100 ML IV PRN (23:33)
[2016-12-06 08:00] VITALS: BP 120/63
[2016-12-06] MEDS: RENAL NOVASOURCE (8OZ) 1 EA BOX PO SCH ×2 (08:00→17:30)
[2016-12-06 08:50] LABS: BASOPHILS % (AUTO) 0.2 % (0.0-2.0); DIFF TOTAL % 100 %; EOSINOPHILS # (AUTO) 0.1 /CMM (0.0-0.7); EOSINOPHILS % (AUTO) 0.6 % (0.0-6.0); HEMATOCRIT 21 % (39-51); HEMOGLOBIN 7.1 g/dL (13.5-17.5); LYMPHOCYTES # (AUTO) 0.8 /CMM (0.8-4.8); LYMPHOCYTES % (AUTO) 7.5 % (20.0-44.0); MEAN CORPUSCULAR HEMOGLOBIN 30 PG (26.0-33.0); MEAN CORPUSCULAR HGB CONC 33 g/dl (31.0-36.0); MEAN CORPUSCULAR VOLUME 90 fL (80-96); MONOCYTES # (AUTO) 0.2 /CMM (0.1-1.30); MONOCYTES % (AUTO) 1.5 % (2.0-12.0); NEUTROPHILS # (AUTO) 9.5 /CMM (1.8-8.9); NEUTROPHILS % (AUTO) 90.2 % (43.0-81.0); PLATELET COUNT (AUTO) 208 /CMM (150-450); RED BLOOD CELL COUNT(AUTO) 2.37 MIL/uL (4.5-6.0); WHITE BLOOD COUNT (AUTO) 10.6 K/uL (4.3-11.0)
[2016-12-06] MEDS: LamoTRIgine 25 MG TABLET PO SCH (09:11)
[2016-12-06] MEDS: PANTOPRAZOLE 40 MG TABLET.DR PO SCH (09:12)
[2016-12-06] MEDS: ASPIRIN 81 MG TAB.CHEW PO SCH (09:12)
[2016-12-06] MEDS: TAMSULOSIN 0.4 MG CAP.SR.24H PO SCH (09:12)
[2016-12-06] MEDS: VIT B CMPLX 3/FA/VIT C/BIOTIN 1 TAB TABLET PO SCH (09:12)
[2016-12-06] MEDS: MEGESTROL ACETATE 40 MG TABLET PO SCH ×2 (09:13→17:27)
[2016-12-06] MEDS: CARVEDILOL 3.125 MG TABLET PO SCH ×2 (09:14→17:28)
[2016-12-06] MEDS: ALLOPURINOL 100 MG TABLET PO SCH (09:14)
[2016-12-06] MEDS: ENALAPRIL MALEATE (10 MG) 10 MG TABLET PO SCH (09:14)
[2016-12-06] MEDS: Z GUARD REMEDY 2 OZ OINT TP SCH ×2 (09:15→17:30)
[2016-12-06] MEDS: HYDROGEL DRESSING 90 GM TUBE TP SCH (09:15)
[2016-12-06] MEDS: PROSOURCE / PROSTAT (PYXIS) 30 ML UDC PO SCH (09:15)
[2016-12-06] MEDS: HEPARIN SODIUM, PORCINE 5000 UNITS/1 ML VIAL SQ SCH ×2 (09:26→21:12)
[2016-12-06 10:00] LABS: ALBUMIN 1.6 g/dL (3.4-5.0); BILIRUBIN,DIRECT 0.1 mg/dL (0.0-0.2); BILIRUBIN,TOTAL 0.5 mg/dL (0.2-1.0); CALCIUM, SERUM 8.7 mg/dL (8.5-10.1); CREATININE 4.9 mg/dL (0.6-1.3); INDIRECT BILIRUBIN 0.4 mg/dL (0.0-1.1); PHOSPHORUS 2.1 mg/dL (2.5-4.9); POTASSIUM 3.7 mmol/L (3.5-5.1); TOTAL PROTEIN, SERUM 5.7 g/dL (6.4-8.2)
[2016-12-06 16:00] VITALS: BP_SYST 119; BP_SYST 125; BP_DIAS 58; BP_DIAS 66
[2016-12-06 20:00] VITALS: BP 113/57
[2016-12-06 20:24] VITALS: BP 113/57
[2016-12-06] MEDS: DONEPEZIL 5 MG TABLET PO SCH (21:03)
[2016-12-06] MEDS: ATORVASTATIN 10 MG TABLET PO SCH (21:03)
[2016-12-06] MEDS: AMLODIPINE BESYLATE 10 MG TABLET PO SCH (21:03)
[2016-12-06] MEDS: MEROPENEM 500 MG in IV NS 0.9% 50 ML IV SCH (21:10)
[2016-12-07] VITALS (11 sets, daily range): BP systolic 102–150; BP diastolic 55–79
[2016-12-07 06:48] LABS: BASOPHILS % (AUTO) 0.3 % (0.0-2.0); DIFF TOTAL % 100 %; EOSINOPHILS # (AUTO) 0.1 /CMM (0.0-0.7); EOSINOPHILS % (AUTO) 0.9 % (0.0-6.0); HEMATOCRIT 21 % (39-51); HEMOGLOBIN 7.2 g/dL (13.5-17.5); LYMPHOCYTES % (AUTO) 9.7 % (20.0-44.0); MEAN CORPUSCULAR HEMOGLOBIN 30 PG (26.0-33.0); MEAN CORPUSCULAR HGB CONC 34 g/dl (31.0-36.0); MEAN CORPUSCULAR VOLUME 89 fL (80-96); MONOCYTES # (AUTO) 0.3 /CMM (0.1-1.30); NEUTROPHILS % (AUTO) 86.1 % (43.0-81.0); PLATELET COUNT (AUTO) 216 /CMM (150-450); RED BLOOD CELL COUNT(AUTO) 2.38 MIL/uL (4.5-6.0); WHITE BLOOD COUNT (AUTO) 10.4 K/uL (4.3-11.0)
[2016-12-07 07:17] LABS: CREATININE 6.1 mg/dL (0.6-1.3); PHOSPHORUS 2.7 mg/dL (2.5-4.9)
[2016-12-07] MEDS: HYDROGEL DRESSING 90 GM TUBE TP SCH (09:00)
[2016-12-07] MEDS: Z GUARD REMEDY 2 OZ OINT TP SCH ×2 (09:00→17:00)
[2016-12-07] MEDS: HEPARIN SODIUM, PORCINE 5000 UNITS/1 ML VIAL SQ SCH ×2 (09:00→21:00)
[2016-12-07] MEDS: ENALAPRIL MALEATE (10 MG) 10 MG TABLET PO SCH (09:00)
[2016-12-07] MEDS: PROSOURCE / PROSTAT (PYXIS) 30 ML UDC PO SCH (10:22)
[2016-12-07] MEDS: MEGESTROL ACETATE 40 MG TABLET PO SCH ×2 (10:22→17:00)
[2016-12-07] MEDS: LamoTRIgine 25 MG TABLET PO SCH (10:22)
[2016-12-07] MEDS: TAMSULOSIN 0.4 MG CAP.SR.24H PO SCH (10:23)
[2016-12-07] MEDS: ASPIRIN 81 MG TAB.CHEW PO SCH (10:23)
[2016-12-07] MEDS: PANTOPRAZOLE 40 MG TABLET.DR PO SCH (10:23)
[2016-12-07] MEDS: VIT B CMPLX 3/FA/VIT C/BIOTIN 1 TAB TABLET PO SCH (10:23)
[2016-12-07] MEDS: ALLOPURINOL 100 MG TABLET PO SCH (10:24)
[2016-12-07] MEDS: CARVEDILOL 3.125 MG TABLET PO SCH ×2 (10:25→17:00)
[2016-12-07] MEDS: RENAL NOVASOURCE (8OZ) 1 EA BOX PO SCH ×2 (10:27→18:32)
[2016-12-07] MEDS ORDERED: IV NS 0.9% 250 ML IV ONE (14:30)
[2016-12-07] MEDS ORDERED: BLOOD IV SET 1 EA INFUS.SET MC ONE (14:31)
[2016-12-07] MEDS: VANCOMYCIN 500 MG in IV D5W 100 ML IV PRN (20:49)
[2016-12-07] MEDS: MEROPENEM 500 MG in IV NS 0.9% 50 ML IV SCH (22:28)
[2016-12-07] MEDS: DONEPEZIL 5 MG TABLET PO SCH (22:30)
[2016-12-07] MEDS: ATORVASTATIN 10 MG TABLET PO SCH (22:30)
[2016-12-08] VITALS: BP 132/69
[2016-12-08 07:08] LABS: DIFF TOTAL % 100 %; EOSINOPHILS # (AUTO) 0.1 /CMM (0.0-0.7); EOSINOPHILS % (AUTO) 0.6 % (0.0-6.0); HEMATOCRIT 26 % (39-51); HEMOGLOBIN 8.7 g/dL (13.5-17.5); LYMPHOCYTES # (AUTO) 0.9 /CMM (0.8-4.8); LYMPHOCYTES % (AUTO) 9.5 % (20.0-44.0); MEAN CORPUSCULAR HEMOGLOBIN 29 PG (26.0-33.0); MEAN CORPUSCULAR HGB CONC 33 g/dl (31.0-36.0); MEAN CORPUSCULAR VOLUME 87 fL (80-96); MONOCYTES # (AUTO) 0.4 /CMM (0.1-1.30); MONOCYTES % (AUTO) 4.1 % (2.0-12.0); NEUTROPHILS # (AUTO) 8.5 /CMM (1.8-8.9); NEUTROPHILS % (AUTO) 85.8 % (43.0-81.0); PLATELET COUNT (AUTO) 218 /CMM (150-450); RED BLOOD CELL COUNT(AUTO) 3.02 MIL/uL (4.5-6.0); WHITE BLOOD COUNT (AUTO) 9.9 K/uL (4.3-11.0)
[2016-12-08 07:33] LABS: CALCIUM, SERUM 8.8 mg/dL (8.5-10.1); PHOSPHORUS 3.2 mg/dL (2.5-4.9); POTASSIUM 4.4 mmol/L (3.5-5.1)
[2016-12-08 08:00] VITALS: BP 133/93
[2016-12-08] MEDS: TAMSULOSIN 0.4 MG CAP.SR.24H PO SCH (08:18)
[2016-12-08] MEDS: ALLOPURINOL 100 MG TABLET PO SCH (08:18)
[2016-12-08] MEDS: VIT B CMPLX 3/FA/VIT C/BIOTIN 1 TAB TABLET PO SCH (08:18)
[2016-12-08] MEDS: ASPIRIN 81 MG TAB.CHEW PO SCH (08:19)
[2016-12-08] MEDS: PANTOPRAZOLE 40 MG TABLET.DR PO SCH (08:19)
[2016-12-08] MEDS: LamoTRIgine 25 MG TABLET PO SCH (08:19)
[2016-12-08] MEDS: CARVEDILOL 3.125 MG TABLET PO SCH ×2 (08:20→16:54)
[2016-12-08] MEDS: ENALAPRIL MALEATE (10 MG) 10 MG TABLET PO SCH (08:20)
[2016-12-08] MEDS: MEGESTROL ACETATE 40 MG TABLET PO SCH ×2 (08:20→16:54)
[2016-12-08] MEDS: PROSOURCE / PROSTAT (PYXIS) 30 ML UDC PO SCH (08:20)
[2016-12-08] MEDS: RENAL NOVASOURCE (8OZ) 1 EA BOX PO SCH ×2 (08:20→16:53)
[2016-12-08] MEDS: HYDROGEL DRESSING 90 GM TUBE TP SCH (08:21)
[2016-12-08] MEDS: Z GUARD REMEDY 2 OZ OINT TP SCH ×2 (08:21→17:02)
[2016-12-08] MEDS: HEPARIN SODIUM, PORCINE 5000 UNITS/1 ML VIAL SQ SCH ×2 (10:00→21:00)
[2016-12-08] MEDS ORDERED: VANC500F2 IV (10:15)
[2016-12-08] MEDS ORDERED: Heparin Sodium,Porcine SQ (10:15)
[2016-12-08 16:00] VITALS: BP 165/85
[2016-12-08 16:46] VITALS: BP 152/76
[2016-12-08 20:00] VITALS: BP 166/75
[2016-12-08] MEDS: DONEPEZIL 5 MG TABLET PO SCH (21:14)
[2016-12-08] MEDS: MEROPENEM 500 MG in IV NS 0.9% 50 ML IV SCH (21:14)
[2016-12-08] MEDS: ATORVASTATIN 10 MG TABLET PO SCH (21:14)
[2016-12-08] MEDS: AMLODIPINE BESYLATE 10 MG TABLET PO SCH (21:16)
[2016-12-09 07:06] LABS: CALCIUM, SERUM 8.9 mg/dL (8.5-10.1); CREATININE 5.9 mg/dL (0.6-1.3); POTASSIUM 5.1 mmol/L (3.5-5.1)
[2016-12-09 08:00] VITALS: BP 159/77
[2016-12-09] MEDS: Z GUARD REMEDY 2 OZ OINT TP SCH ×2 (09:00→16:35)
[2016-12-09] MEDS: TAMSULOSIN 0.4 MG CAP.SR.24H PO SCH (11:07)
[2016-12-09] MEDS: CARVEDILOL 3.125 MG TABLET PO SCH ×2 (11:07→16:33)
[2016-12-09] MEDS: PANTOPRAZOLE 40 MG TABLET.DR PO SCH (11:07)
[2016-12-09] MEDS: ASPIRIN 81 MG TAB.CHEW PO SCH (11:08)
[2016-12-09] MEDS: LamoTRIgine 25 MG TABLET PO SCH (11:08)
[2016-12-09] MEDS: ENALAPRIL MALEATE (10 MG) 10 MG TABLET PO SCH (11:08)
[2016-12-09] MEDS: ALLOPURINOL 100 MG TABLET PO SCH (11:08)
[2016-12-09] MEDS: VIT B CMPLX 3/FA/VIT C/BIOTIN 1 TAB TABLET PO SCH (11:08)
[2016-12-09] MEDS: RENAL NOVASOURCE (8OZ) 1 EA BOX PO SCH ×2 (11:09→16:34)
[2016-12-09] MEDS: MEGESTROL ACETATE 40 MG TABLET PO SCH ×2 (11:09→16:33)
[2016-12-09] MEDS: HEPARIN SODIUM, PORCINE 5000 UNITS/1 ML VIAL SQ SCH (11:10)
[2016-12-09] MEDS: PROSOURCE / PROSTAT (PYXIS) 30 ML UDC PO SCH (11:17)
[2016-12-09] MEDS: HYDROGEL DRESSING 90 GM TUBE TP SCH (12:23)
[2016-12-09] MEDS ORDERED: SECONDARY IV SET 1 EA INFUS.SET MC ONE (15:46)
[2016-12-09] MEDS: VANCOMYCIN 500 MG in IV D5W 100 ML IV PRN (15:49)
[2016-12-09 16:00] VITALS: BP 133/68
[2016-12-09 16:33] VITALS: BP 133/68
== END 2016-12-09 20:10 | DRG 871 ==
LOC: ER 18:00 → TELE 20:11 → MED 12-05 16:20
PROVIDERS: ADMIT Nurse Practitioner Acute Care; ATTEND Nurse Practitioner Acute Care
PROC: 5A1D60Z (ICD-10-PCS; principal; 2016-12-04)
PROC: 30233N1 Transfusion of Nonautologous Red Blood Cells into Peripheral Vein, Percutaneous Approach (ICD-10-PCS; 2016-12-07)
DX: A41.9 Sepsis, unspecified organism (principal); J69.0 Pneumonitis due to inhalation of food and vomit; J15.6 Pneumonia due to other Gram-negative bacteria; J15.9 Unspecified bacterial pneumonia; N18.6 End stage renal disease; E43 Unspecified severe protein-calorie malnutrition; G93.41 Metabolic encephalopathy; I21.4 Non-ST elevation (NSTEMI) myocardial infarction; R53.2 Functional quadriplegia; N39.0 Urinary tract infection, site not specified; I13.2 Hypertensive heart and chronic kidney disease with heart failure and with stage 5 chronic kidney disease, or end stage renal disease; B96.89 Other specified bacterial agents as the cause of diseases classified elsewhere; Z99.2 Dependence on renal dialysis; D63.8 Anemia in other chronic diseases classified elsewhere; E03.9 Hypothyroidism, unspecified; G40.909 Epilepsy, unspecified, not intractable, without status epilepticus; I25.10 Atherosclerotic heart disease of native coronary artery without angina pectoris; Z86.73 Personal history of transient ischemic attack (TIA), and cerebral infarction without residual deficits; N40.1 Benign prostatic hyperplasia with lower urinary tract symptoms; K21.9 Gastro-esophageal reflux disease without esophagitis; I34.0 Nonrheumatic mitral (valve) insufficiency; F29 Unspecified psychosis not due to a substance or known physiological condition; M10.9 Gout, unspecified; E88.09 Other disorders of plasma-protein metabolism, not elsewhere classified; M62.50 Muscle wasting and atrophy, not elsewhere classified, unspecified site; R62.7 Adult failure to thrive; E11.22 Type 2 diabetes mellitus with diabetic chronic kidney disease; F03.90 Unspecified dementia, unspecified severity, without behavioral disturbance, psychotic disturbance, mood disturbance, and anxiety; I50.9 Heart failure, unspecified; Z87.11 Personal history of peptic ulcer disease; R65.20 Severe sepsis without septic shock; Z68.20 Body mass index [BMI] 20.0-20.9, adult
CPT/HCPCS: 36415; 36600; 71010-TC; 80048-TC; 80076-TC; 80202-TC; 81000-TC; 82803-TC; 83605-TC; 83735-TC; 84100-TC; 84484-TC; 85025-TC; 85730-TC; 86850-TC; 86921-TC; 87040-TC; 87081-TC; 87086-TC; 90935-TC; 92611-TC; 93307-TC; 94799-TC; A4216; A4606; A6248; A6402; J1644; J2185; J3370; J7050; J7060; P9016-BL; Z7610

== ENCOUNTER 2016-12-14 09:19 | Inpatient (IN) | payer MEDICARE, MEDICAID ==
[~2016-12-14] VITALS: Ht 177.8 cm; Wt 60.0 kg
[2016-12-14] VITALS (8 sets, daily range): BP systolic 115–170; BP diastolic 55–93
[~2016-12-14 09:19] MED LIST changes: -ALPR0.5T8 PO; +Heparin Sodium,Porcine SQ; -MIRT15TA7 PO; -NAPR500T3 PO; -Olanzapine PO; +VANC500F2 IV
[2016-12-14 09:42] LABS: BASOPHILS # (AUTO) 0.2 /CMM (0.0-0.2); BASOPHILS % (AUTO) 0.8 % (0.0-2.0); DIFF TOTAL % 100 %; EOSINOPHILS % (AUTO) 0.1 % (0.0-6.0); LYMPHOCYTES # (AUTO) 1.2 /CMM (0.8-4.8); LYMPHOCYTES % (AUTO) 5.5 % (20.0-44.0); MEAN CORPUSCULAR HEMOGLOBIN 28 PG (26.0-33.0); MEAN CORPUSCULAR HGB CONC 33 g/dl (31.0-36.0); MEAN CORPUSCULAR VOLUME 87 fL (80-96); MONOCYTES # (AUTO) 0.8 /CMM (0.1-1.30); MONOCYTES % (AUTO) 3.9 % (2.0-12.0); NEUTROPHILS # (AUTO) 19.6 /CMM (1.8-8.9); NEUTROPHILS % (AUTO) 89.7 % (43.0-81.0); PLATELET COUNT (AUTO) 517 /CMM (150-450); RED BLOOD CELL COUNT(AUTO) 2.23 MIL/uL (4.5-6.0); WHITE BLOOD COUNT (AUTO) 21.8 K/uL (4.3-11.0)
[2016-12-14] MEDS ORDERED: NUTR100037 PO (09:46)
[2016-12-14] MEDS ORDERED: NA P133E RC (09:46)
[2016-12-14] MEDS ORDERED: DOCU-270 PO (09:46)
[2016-12-14] MEDS ORDERED: BLOO-697 IN (09:46)
[2016-12-14] MEDS ORDERED: ACET-868 PO (09:46)
[2016-12-14] MEDS ORDERED: BISA10SU8 RC (09:46)
[2016-12-14] MEDS ORDERED: VANC500V IV (09:46)
[2016-12-14 09:52] LABS: HEMOGLOBIN 6.4 g/dL (13.5-17.5)
[2016-12-14 09:53] LABS: HEMATOCRIT 19 % (39-51)
[2016-12-14 10:12] LABS: CALCIUM, SERUM 9.4 mg/dL (8.5-10.1); CREATININE 5.2 mg/dL (0.6-1.3); POTASSIUM 4.4 mmol/L (3.5-5.1)
[2016-12-14 10:18] LABS: BILIRUBIN,DIRECT 0.1 mg/dL (0.0-0.2); BILIRUBIN,TOTAL 0.5 mg/dL (0.2-1.0); INDIRECT BILIRUBIN 0.4 mg/dL (0.0-1.1); TOTAL PROTEIN, SERUM 6.5 g/dL (6.4-8.2)
[2016-12-14 10:37] LABS: BAND % (MANUAL) 2 % (0.0-5.0); LYMPHOCYTES % (MANUAL) 4 % (16-48); PLATELET ESTIMATE INCREASED
[2016-12-14 10:38] LABS: ANISOCYTOSIS 1+; HYPOCHROMASIA 1+
[2016-12-14] MEDS ORDERED: LIDOCAINE 2% JEL UROJET 10 ML MM ONE ×2 (11:30→12:00)
[2016-12-14 11:51] LABS: KETONES,URINE Negative (NEGATIVE); LEUKOCYTE ESTERASE ,URINE Large (NEGATIVE)
[2016-12-14 11:53] LABS: ADD UA MICROSCOPIC YES; PH,URINE >9.0 (5.0-8.0)
[2016-12-14 11:58] LABS: ADD URINE CULTURE YES; RBC,URINE TOO NUMEROUS TO COUN /HPF (0-2); WBC,URINE TOO NUMEROUS TO COUN /HPF (0-3)
[2016-12-14] MEDS ORDERED: CEFTRIAXONE 1GM BAG (ER ONLY) 50 ML IV ONE ×2 (12:30→12:40)
[2016-12-14] MEDS ORDERED: IV SET PRIMARY PUMP SET 1 EA INFUS.SET MC ONE ×3 (12:40→15:07)
[2016-12-14] MEDS ORDERED: ACETAMINOPHEN 650 MG/SUPP.RECT RC PRN (14:00)
[2016-12-14] MEDS ORDERED: Z GUARD REMEDY 2 OZ OINT TP PRN (14:00)
[2016-12-14] MEDS ORDERED: MORPHINE SULFATE INJ 2 MG/ML DISP.SYRIN IV PRN (14:00)
[2016-12-14] MEDS ORDERED: ONDANSETRON HCL/PF 4 MG/2 ML VIAL IVP PRN (14:00)
[2016-12-14] MEDS ORDERED: SECONDARY IV SET 1 EA INFUS.SET MC ONE (14:33)
[2016-12-14] MEDS: IV D5/0.45 NACL 1,000 ML IV PRN (14:46)
[2016-12-14] MEDS ORDERED: BLOOD IV SET 1 EA INFUS.SET MC ONE (15:07)
[2016-12-14] MEDS ORDERED: IV NS 0.9% 250 ML IV ONE (15:39)
[2016-12-14] MEDS: MEROPENEM 500 MG in IV NS 0.9% 50 ML IV SCH (17:05)
[2016-12-14] MEDS ORDERED: HEPARIN SODIUM, PORCINE 5000 UNITS/1 ML VIAL SQ SCH (21:00)
[2016-12-15] VITALS: BP 127/67
[2016-12-15] MEDS: MEROPENEM 500 MG in IV NS 0.9% 50 ML IV SCH ×2 (02:58→14:22)
[2016-12-15 04:00] VITALS: BP 135/70
[2016-12-15] MEDS: IV D5/0.45 NACL 1,000 ML IV PRN (04:04)
[2016-12-15 07:31] VITALS: BP 149/72
[2016-12-15 08:00] VITALS: BP 141/76
[2016-12-15 08:58] LABS: BASOPHILS # (AUTO) 0.2 /CMM (0.0-0.2); BASOPHILS % (AUTO) 1.6 % (0.0-2.0); DIFF TOTAL % 100 %; EOSINOPHILS # (AUTO) 0.1 /CMM (0.0-0.7); EOSINOPHILS % (AUTO) 0.6 % (0.0-6.0); HEMATOCRIT 27 % (39-51); HEMOGLOBIN 8.8 g/dL (13.5-17.5); LYMPHOCYTES # (AUTO) 1.6 /CMM (0.8-4.8); LYMPHOCYTES % (AUTO) 11.2 % (20.0-44.0); MEAN CORPUSCULAR HEMOGLOBIN 28 PG (26.0-33.0); MEAN CORPUSCULAR HGB CONC 33 g/dl (31.0-36.0); MEAN CORPUSCULAR VOLUME 85 fL (80-96); MONOCYTES # (AUTO) 0.8 /CMM (0.1-1.30); MONOCYTES % (AUTO) 5.7 % (2.0-12.0); NEUTROPHILS # (AUTO) 11.5 /CMM (1.8-8.9); NEUTROPHILS % (AUTO) 80.9 % (43.0-81.0); PLATELET COUNT (AUTO) 457 /CMM (150-450); RED BLOOD CELL COUNT(AUTO) 3.14 MIL/uL (4.5-6.0); WHITE BLOOD COUNT (AUTO) 14.2 K/uL (4.3-11.0)
[2016-12-15] MEDS: PANTOPRAZOLE 40 MG VIAL IV SCH (09:10)
[2016-12-15 09:13] LABS: CALCIUM, SERUM 8.8 mg/dL (8.5-10.1); PHOSPHORUS 3.9 mg/dL (2.5-4.9); POTASSIUM 3.9 mmol/L (3.5-5.1)
[2016-12-15] MEDS ORDERED: IV SET PRIMARY PUMP SET 1 EA INFUS.SET MC ONE (15:26)
[2016-12-15] MEDS: IV D5/ 0.9% NACL 1,000 ML IV PRN (15:35)
[2016-12-15 16:46] VITALS: BP 139/71
[2016-12-15 20:00] VITALS: BP 149/78
[2016-12-15 21:28] LABS: IRON, SERUM 24 ug/dl (50-175); PERCENT SATURATION 18 % (14-33); TOTAL IRON BINDING CAPACITY 132 ug/dl (250-450)
[2016-12-15 22:27] LABS: INR 1.09 (0.87-1.13); PROTHROMBIN TIME 11.8 SECS (9.5-12.7)
[2016-12-16] MEDS: MEROPENEM 500 MG in IV NS 0.9% 50 ML IV SCH ×2 (02:12→15:23)
[2016-12-16 08:00] VITALS: BP 163/85
[2016-12-16 08:31] LABS: BASOPHILS # (AUTO) 0.1 /CMM (0.0-0.2); BASOPHILS % (AUTO) 0.9 % (0.0-2.0); DIFF TOTAL % 100 %; EOSINOPHILS % (AUTO) 0.3 % (0.0-6.0); HEMATOCRIT 28 % (39-51); HEMOGLOBIN 9.4 g/dL (13.5-17.5); LYMPHOCYTES # (AUTO) 1.2 /CMM (0.8-4.8); LYMPHOCYTES % (AUTO) 10.9 % (20.0-44.0); MEAN CORPUSCULAR HEMOGLOBIN 28 PG (26.0-33.0); MEAN CORPUSCULAR HGB CONC 34 g/dl (31.0-36.0); MEAN CORPUSCULAR VOLUME 84 fL (80-96); MONOCYTES # (AUTO) 0.7 /CMM (0.1-1.30); MONOCYTES % (AUTO) 6.2 % (2.0-12.0); NEUTROPHILS # (AUTO) 9.3 /CMM (1.8-8.9); NEUTROPHILS % (AUTO) 81.7 % (43.0-81.0); PLATELET COUNT (AUTO) 478 /CMM (150-450); RED BLOOD CELL COUNT(AUTO) 3.32 MIL/uL (4.5-6.0); WHITE BLOOD COUNT (AUTO) 11.4 K/uL (4.3-11.0)
[2016-12-16 08:49] LABS: CALCIUM, SERUM 8.5 mg/dL (8.5-10.1); CREATININE 3.1 mg/dL (0.6-1.3); PHOSPHORUS 2.8 mg/dL (2.5-4.9); POTASSIUM 3.5 mmol/L (3.5-5.1)
[2016-12-16 09:08] LABS: IRON, SERUM 34 ug/dl (50-175); PERCENT SATURATION 25 % (14-33); TOTAL IRON BINDING CAPACITY 138 ug/dl (250-450)
[2016-12-16] MEDS: PANTOPRAZOLE 40 MG VIAL IV SCH (09:23)
[2016-12-16] MEDS ORDERED: IV NS 0.9% 250 ML IV ONE (11:46)
[2016-12-16] MEDS ORDERED: BLOOD IV SET 1 EA INFUS.SET MC ONE (11:46)
[2016-12-16] MEDS ORDERED: ANESTHESIA TRAY IN PYXIS 1 EA TRAY MC ONE (15:45)
[2016-12-16] MEDS: IV D5/ 0.9% NACL 1,000 ML IV PRN (19:05)
[2016-12-16 20:03] VITALS: BP 158/75
[2016-12-16 22:00] VITALS: BP 158/75
[2016-12-17] MEDS: MEROPENEM 500 MG in IV NS 0.9% 50 ML IV SCH ×2 (02:18→14:20)
[2016-12-17 08:00] VITALS: BP 162/80
[2016-12-17 08:03] LABS: BASOPHILS # (AUTO) 0.1 /CMM (0.0-0.2); BASOPHILS % (AUTO) 0.7 % (0.0-2.0); DIFF TOTAL % 100 %; EOSINOPHILS % (AUTO) 0.2 % (0.0-6.0); HEMATOCRIT 25 % (39-51); HEMOGLOBIN 8.5 g/dL (13.5-17.5); LYMPHOCYTES # (AUTO) 1.3 /CMM (0.8-4.8); LYMPHOCYTES % (AUTO) 13.9 % (20.0-44.0); MEAN CORPUSCULAR HEMOGLOBIN 29 PG (26.0-33.0); MEAN CORPUSCULAR HGB CONC 34 g/dl (31.0-36.0); MEAN CORPUSCULAR VOLUME 84 fL (80-96); MONOCYTES # (AUTO) 0.8 /CMM (0.1-1.30); MONOCYTES % (AUTO) 8.2 % (2.0-12.0); NEUTROPHILS # (AUTO) 7.3 /CMM (1.8-8.9); PLATELET COUNT (AUTO) 484 /CMM (150-450); RED BLOOD CELL COUNT(AUTO) 2.99 MIL/uL (4.5-6.0); WHITE BLOOD COUNT (AUTO) 9.4 K/uL (4.3-11.0)
[2016-12-17 08:23] LABS: CALCIUM, SERUM 8.1 mg/dL (8.5-10.1); CREATININE 4.7 mg/dL (0.6-1.3); POTASSIUM 3.7 mmol/L (3.5-5.1)
[2016-12-17] MEDS: PANTOPRAZOLE 40 MG VIAL IV SCH (08:44)
[2016-12-17 08:56] VITALS: BP 160/81
[2016-12-17 16:00] VITALS: BP 152/77
[2016-12-17 20:00] VITALS: BP 170/81
[2016-12-17 22:00] VITALS: BP 170/81
[2016-12-17] MEDS ORDERED: hydrALAZINE HCL 10 MG TABLET ONE (22:10)
[2016-12-17] MEDS ORDERED: hydrALAZINE HCL 10 MG TABLET PO ONE (22:30)
[2016-12-18] MEDS ORDERED: IV NS 0.9% 250 ML IV ONE (02:27)
[2016-12-18] MEDS ORDERED: IV SET PRIMARY PUMP SET 1 EA INFUS.SET MC ONE (02:27)
[2016-12-18] MEDS: MEROPENEM 500 MG in IV NS 0.9% 50 ML IV SCH ×2 (02:46→15:27)
[2016-12-18 08:00] VITALS: BP_SYST 142; BP_SYST 150; BP_DIAS 72; BP_DIAS 92
[2016-12-18] MEDS ORDERED: MERO500V3 IV (08:21)
[2016-12-18] MEDS ORDERED: PANT40TA2 PO (08:23)
[2016-12-18] MEDS: PANTOPRAZOLE 40 MG VIAL IV SCH (08:27)
[2016-12-18 16:00] VITALS: BP 145/77
[2016-12-18] MEDS ORDERED: CLONIDINE HCL 0.1 MG TABLET PO PRN (17:30)
[2016-12-18 18:30] VITALS: BP 158/93
[2016-12-18 20:22] VITALS: BP 138/70
[2016-12-19] MEDS: MEROPENEM 500 MG in IV NS 0.9% 50 ML IV SCH ×2 (03:50→14:08)
[2016-12-19 08:00] VITALS: BP 155/77
[2016-12-19] MEDS: PANTOPRAZOLE 40 MG VIAL IV SCH (08:14)
[2016-12-19 10:52] LABS: HEMATOCRIT 24 % (39-51); HEMOGLOBIN 7.9 g/dL (13.5-17.5); MEAN CORPUSCULAR HEMOGLOBIN 28 PG (26.0-33.0); MEAN CORPUSCULAR HGB CONC 33 g/dl (31.0-36.0); MEAN CORPUSCULAR VOLUME 85 fL (80-96); PLATELET COUNT (AUTO) 440 /CMM (150-450); WHITE BLOOD COUNT (AUTO) 11.6 K/uL (4.3-11.0)
[2016-12-19 11:09] LABS: CALCIUM, SERUM 8.4 mg/dL (8.5-10.1); CREATININE 4.7 mg/dL (0.6-1.3); POTASSIUM 3.8 mmol/L (3.5-5.1)
== END 2016-12-19 15:30 | DRG 871 ==
LOC: ER 09:21 → TELE 11:53 → MED 12-15 10:21
PROC: 30233N1 Transfusion of Nonautologous Red Blood Cells into Peripheral Vein, Percutaneous Approach (ICD-10-PCS; 2016-12-14)
PROC: 5A1D60Z (ICD-10-PCS; 2016-12-14)
PROC: 0DB68ZX Excision of Stomach, Via Natural or Artificial Opening Endoscopic, Diagnostic (ICD-10-PCS; principal; 2016-12-16 16:00)
DX: A41.9 Sepsis, unspecified organism (principal); G93.41 Metabolic encephalopathy; N18.6 End stage renal disease; R53.2 Functional quadriplegia; E43 Unspecified severe protein-calorie malnutrition; K29.81 Duodenitis with bleeding; N39.0 Urinary tract infection, site not specified; Z68.1 Body mass index [BMI] 19.9 or less, adult; I13.2 Hypertensive heart and chronic kidney disease with heart failure and with stage 5 chronic kidney disease, or end stage renal disease; F03.91 Unspecified dementia, unspecified severity, with behavioral disturbance; Z99.2 Dependence on renal dialysis; E03.9 Hypothyroidism, unspecified; D63.1 Anemia in chronic kidney disease; E11.22 Type 2 diabetes mellitus with diabetic chronic kidney disease; I25.2 Old myocardial infarction; I50.9 Heart failure, unspecified; R62.7 Adult failure to thrive; N40.0 Benign prostatic hyperplasia without lower urinary tract symptoms; K21.9 Gastro-esophageal reflux disease without esophagitis; Z86.73 Personal history of transient ischemic attack (TIA), and cerebral infarction without residual deficits; M10.9 Gout, unspecified; Z88.0 Allergy status to penicillin; Z87.11 Personal history of peptic ulcer disease; I25.10 Atherosclerotic heart disease of native coronary artery without angina pectoris; G40.909 Epilepsy, unspecified, not intractable, without status epilepticus; I34.0 Nonrheumatic mitral (valve) insufficiency; R74.0 Nonspecific elevation of levels of transaminase and lactic acid dehydrogenase [LDH]; F29 Unspecified psychosis not due to a substance or known physiological condition; E88.09 Other disorders of plasma-protein metabolism, not elsewhere classified; L89.152 Pressure ulcer of sacral region, stage 2; E83.9 Disorder of mineral metabolism, unspecified; R65.20 Severe sepsis without septic shock
CPT/HCPCS: 36415; 71010-TC; 80048-TC; 80076-TC; 81000-TC; 82272-TC; 83540-TC; 83605-TC; 83735-TC; 84100-TC; 85025-TC; 85027-TC; 85610-TC; 86850-TC; 86921-TC; 87040-TC; 87081-TC; 87086-TC; 88305-TC; 88313-TC; 88342; 90935-TC; 92526; 92611-TC; 94799-TC; 97001-TC; 97003-TC; A4216; A4606; A6403; C9113; J0696; J2185; J3490; J7042; J7050; P9016-BL; Z7610

== ENCOUNTER 2016-12-23 18:16 | Inpatient (IN) | payer MEDICARE, MEDICAID ==
[~2016-12-23] VITALS: Ht 177.8 cm; Wt 83.9 kg
[~2016-12-23 18:16] MED LIST changes: +ACET-868 PO; -ASPI81TA2 PO; +BISA10SU8 RC; +BLOO-697 IN; +DOCU-270 PO; -Heparin Sodium,Porcine SQ; +MERO500V3 IV; +NA P133E RC; +NUTR100037 PO; -Nutritional Supplement PO; -OLAN10VI IM; -OLAN5TAB6 SL; +PANT40TA2 PO; -VANC500F2 IV; +VANC500V IV
[2016-12-23] MEDS ORDERED: PANTOPRAZOLE 80 MG in IV NS 0.9% 100 ML IV ONE (18:30)
[2016-12-23] MEDS ORDERED: PANTOPRAZOLE 40 MG VIAL ONE (18:40)
[2016-12-23 18:46] LABS: BASOPHILS # (AUTO) 0.1 /CMM (0.0-0.2); BASOPHILS % (AUTO) 0.5 % (0.0-2.0); DIFF TOTAL % 100 %; EOSINOPHILS # (AUTO) 0.2 /CMM (0.0-0.7); EOSINOPHILS % (AUTO) 1.4 % (0.0-6.0); HEMATOCRIT 22 % (39-51); HEMOGLOBIN 7.2 g/dL (13.5-17.5); LYMPHOCYTES # (AUTO) 1.8 /CMM (0.8-4.8); LYMPHOCYTES % (AUTO) 11.8 % (20.0-44.0); MEAN CORPUSCULAR HEMOGLOBIN 28 PG (26.0-33.0); MEAN CORPUSCULAR HGB CONC 33 g/dl (31.0-36.0); MEAN CORPUSCULAR VOLUME 85 fL (80-96); MONOCYTES % (AUTO) 6.7 % (2.0-12.0); NEUTROPHILS % (AUTO) 79.6 % (43.0-81.0); PLATELET COUNT (AUTO) 355 /CMM (150-450); WHITE BLOOD COUNT (AUTO) 15.1 K/uL (4.3-11.0)
[2016-12-23 18:56] LABS: CALCIUM, SERUM 8.5 mg/dL (8.5-10.1); CREATININE 6.8 mg/dL (0.6-1.3); POTASSIUM 4.2 mmol/L (3.5-5.1)
[2016-12-23] MEDS ORDERED: PANTOPRAZOLE 80 MG in IV NS 0.9% 500 ML IV ONE (19:00)
[2016-12-23] MEDS ORDERED: MAGN400O6 PO (19:03)
[2016-12-23] MEDS ORDERED: MULT1TAB11 PO (19:03)
[2016-12-23] MEDS ORDERED: ZINC220T PO (19:03)
[2016-12-23] MEDS ORDERED: ASCO-340 PO (19:03)
[2016-12-23] MEDS ORDERED: PANT40TA2 PO (19:03)
[2016-12-23 20:00] VITALS: BP 141/71
[2016-12-23] MEDS: AMLODIPINE BESYLATE 10 MG TABLET PO SCH (21:30)
[2016-12-23] MEDS ORDERED: DEXTROSE 50%-WATER 50 ML DISP.SYRIN IV PRN (21:30)
[2016-12-23] MEDS ORDERED: NA PHOS,M-B/NA PHOS,DI-BA 1 EA ENEMA RC PRN (21:30)
[2016-12-23] MEDS ORDERED: MAGNESIUM HYDROXIDE 30 ML UDC PO PRN (21:30)
[2016-12-23] MEDS ORDERED: INSULIN REGULAR, HUMAN 100 UNIT/ML 3 ML VIAL SQ PRN (21:30)
[2016-12-23] MEDS ORDERED: ONDANSETRON HCL/PF 4 MG/2 ML VIAL IVP PRN (21:30)
[2016-12-23] MEDS ORDERED: ACETAMINOPHEN 325 MG TABLET PO PRN (21:30)
[2016-12-23] MEDS ORDERED: SENNOSIDES 8.6 MG TABLET PO PRN (21:30)
[2016-12-23] MEDS ORDERED: BISACODYL SUPP (10 MG) 10 MG/SUPP.RECT SUPP.RECT RC PRN (21:30)
[2016-12-23] MEDS ORDERED: BLOOD IV SET 1 EA INFUS.SET MC ONE (21:31)
[2016-12-23] MEDS ORDERED: IV NS 0.9% 250 ML IV ONE (21:31)
[2016-12-23] MEDS: DOCUSATE SODIUM 100 MG CAPSULE PO SCH (22:00)
[2016-12-23] MEDS: ATORVASTATIN 10 MG TABLET PO SCH (22:00)
[2016-12-23] MEDS: DONEPEZIL 5 MG TABLET PO SCH (22:00)
[2016-12-23] MEDS ORDERED: AMLODIPINE BESYLATE 10 MG TABLET ONE (22:02)
[2016-12-23] MEDS ORDERED: ATORVASTATIN 10 MG TABLET ONE (22:02)
[2016-12-23] MEDS ORDERED: DONEPEZIL 5 MG TABLET ONE (22:03)
[2016-12-23] MEDS ORDERED: DOCUSATE SODIUM 100 MG CAPSULE PO ONE (22:03)
[2016-12-23] MEDS: BLOOD SUGAR DIAGNOSTIC 1 EACH STRIP IN SCH (22:06)
[2016-12-23 22:55] VITALS: BP 170/79
[2016-12-23 23:54] VITALS: BP 141/71
[2016-12-24] VITALS (16 sets, daily range): BP systolic 97–187; BP diastolic 46–99
[2016-12-24] MEDS ORDERED: hydrALAZINE HCL 10 MG TABLET ONE (01:53)
[2016-12-24] MEDS ORDERED: hydrALAZINE HCL 10 MG TABLET PO ONE (02:00)
[2016-12-24] MEDS: BLOOD SUGAR DIAGNOSTIC 1 EACH STRIP IN SCH ×4 (06:17→21:28)
[2016-12-24 07:25] LABS: BASOPHILS % (AUTO) 0.2 % (0.0-2.0); DIFF TOTAL % 100 %; EOSINOPHILS # (AUTO) 0.3 /CMM (0.0-0.7); EOSINOPHILS % (AUTO) 1.6 % (0.0-6.0); HEMATOCRIT 31 % (39-51); HEMOGLOBIN 10.5 g/dL (13.5-17.5); LYMPHOCYTES # (AUTO) 1.4 /CMM (0.8-4.8); MEAN CORPUSCULAR HEMOGLOBIN 29 PG (26.0-33.0); MEAN CORPUSCULAR HGB CONC 34 g/dl (31.0-36.0); MEAN CORPUSCULAR VOLUME 86 fL (80-96); MONOCYTES # (AUTO) 0.8 /CMM (0.1-1.30); MONOCYTES % (AUTO) 5.4 % (2.0-12.0); NEUTROPHILS # (AUTO) 13.1 /CMM (1.8-8.9); NEUTROPHILS % (AUTO) 83.8 % (43.0-81.0); PLATELET COUNT (AUTO) 281 /CMM (150-450); RED BLOOD CELL COUNT(AUTO) 3.61 MIL/uL (4.5-6.0); WHITE BLOOD COUNT (AUTO) 15.6 K/uL (4.3-11.0)
[2016-12-24 07:47] LABS: BILIRUBIN,TOTAL 0.9 mg/dL (0.2-1.0); CALCIUM, SERUM 8.7 mg/dL (8.5-10.1); CREATININE 7.2 mg/dL (0.6-1.3); PHOSPHORUS 6.1 mg/dL (2.5-4.9); POTASSIUM 4.4 mmol/L (3.5-5.1); TOTAL PROTEIN, SERUM 6.1 g/dL (6.4-8.2)
[2016-12-24 07:49] LABS: THYROID STIMULATING HORMONE 2.075 uIU/mL (0.358-3.74)
[2016-12-24] MEDS: PROSOURCE / PROSTAT (PYXIS) 30 ML UDC PO SCH ×3 (08:34→17:44)
[2016-12-24] MEDS: VIT B CMPLX 3/FA/VIT C/BIOTIN 1 TAB TABLET PO SCH (08:34)
[2016-12-24] MEDS: LamoTRIgine 25 MG TABLET PO SCH (08:34)
[2016-12-24] MEDS: CITALOPRAM HYDROBROMIDE 20 MG TABLET PO SCH (08:34)
[2016-12-24] MEDS: ZINC SULFATE 220 MG CAPSULE PO SCH (08:34)
[2016-12-24] MEDS: MULTIVITAMINS W-MINERALS 1 TAB TABLET PO SCH ×2 (08:34→17:44)
[2016-12-24] MEDS: TAMSULOSIN 0.4 MG CAP.SR.24H PO SCH (08:35)
[2016-12-24] MEDS: MEGESTROL ACETATE 40 MG TABLET PO SCH ×2 (08:35→17:44)
[2016-12-24] MEDS: ALLOPURINOL 100 MG TABLET PO SCH (08:35)
[2016-12-24] MEDS: CARVEDILOL 3.125 MG TABLET PO SCH ×2 (08:35→17:45)
[2016-12-24] MEDS: ASCORBIC ACID 500 MG TABLET PO SCH ×2 (08:35→17:45)
[2016-12-24] MEDS: ENALAPRIL MALEATE (10 MG) 10 MG TABLET PO SCH (08:36)
[2016-12-24] MEDS: HYDROGEL DRESSING 90 GM TUBE TP SCH (15:00)
[2016-12-24] MEDS ORDERED: HYDROGEL DRESSING 90 GM TUBE TP PRN (15:00)
[2016-12-24] MEDS: Z GUARD REMEDY 2 OZ OINT TP PRN (17:44)
[2016-12-24 20:53] LABS: IRON, SERUM 84 ug/dl (50-175); PERCENT SATURATION 55 % (14-33); TOTAL IRON BINDING CAPACITY 154 ug/dl (250-450)
[2016-12-24] MEDS: SUCRALFATE 1 G/10 ML UDC GT SCH (21:28)
[2016-12-24] MEDS: DOCUSATE SODIUM 100 MG CAPSULE PO SCH (21:29)
[2016-12-24] MEDS: DONEPEZIL 5 MG TABLET PO SCH (21:29)
[2016-12-24] MEDS: ATORVASTATIN 10 MG TABLET PO SCH (21:29)
[2016-12-25] MEDS: BLOOD SUGAR DIAGNOSTIC 1 EACH STRIP IN SCH ×4 (05:44→21:44)
[2016-12-25 07:20] LABS: BASOPHILS # (AUTO) 0.1 /CMM (0.0-0.2); BASOPHILS % (AUTO) 0.6 % (0.0-2.0); DIFF TOTAL % 100 %; EOSINOPHILS # (AUTO) 0.2 /CMM (0.0-0.7); EOSINOPHILS % (AUTO) 1.5 % (0.0-6.0); HEMATOCRIT 28 % (39-51); HEMOGLOBIN 9.2 g/dL (13.5-17.5); LYMPHOCYTES # (AUTO) 1.8 /CMM (0.8-4.8); LYMPHOCYTES % (AUTO) 13.6 % (20.0-44.0); MEAN CORPUSCULAR HEMOGLOBIN 29 PG (26.0-33.0); MEAN CORPUSCULAR HGB CONC 33 g/dl (31.0-36.0); MEAN CORPUSCULAR VOLUME 87 fL (80-96); MONOCYTES # (AUTO) 0.9 /CMM (0.1-1.30); MONOCYTES % (AUTO) 7.1 % (2.0-12.0); NEUTROPHILS # (AUTO) 10.1 /CMM (1.8-8.9); NEUTROPHILS % (AUTO) 77.2 % (43.0-81.0); PLATELET COUNT (AUTO) 253 /CMM (150-450); RED BLOOD CELL COUNT(AUTO) 3.17 MIL/uL (4.5-6.0)
[2016-12-25 07:43] LABS: CALCIUM, SERUM 8.5 mg/dL (8.5-10.1); CREATININE 5.1 mg/dL (0.6-1.3); POTASSIUM 4.1 mmol/L (3.5-5.1)
[2016-12-25 08:00] VITALS: BP_SYST 108; BP_SYST 168; BP_DIAS 95
[2016-12-25] MEDS: ZINC SULFATE 220 MG CAPSULE PO SCH (08:53)
[2016-12-25] MEDS: TAMSULOSIN 0.4 MG CAP.SR.24H PO SCH (08:53)
[2016-12-25] MEDS: VIT B CMPLX 3/FA/VIT C/BIOTIN 1 TAB TABLET PO SCH (08:53)
[2016-12-25] MEDS: CITALOPRAM HYDROBROMIDE 20 MG TABLET PO SCH (08:54)
[2016-12-25] MEDS: MULTIVITAMINS W-MINERALS 1 TAB TABLET PO SCH ×2 (08:54→16:37)
[2016-12-25] MEDS: ALLOPURINOL 100 MG TABLET PO SCH (08:54)
[2016-12-25] MEDS: LamoTRIgine 25 MG TABLET PO SCH (08:54)
[2016-12-25] MEDS: CARVEDILOL 3.125 MG TABLET PO SCH ×2 (08:54→17:38)
[2016-12-25] MEDS: MEGESTROL ACETATE 40 MG TABLET PO SCH ×2 (08:54→16:37)
[2016-12-25] MEDS: ENALAPRIL MALEATE (10 MG) 10 MG TABLET PO SCH (08:55)
[2016-12-25] MEDS: SUCRALFATE 1 G/10 ML UDC GT SCH ×4 (08:55→21:45)
[2016-12-25] MEDS: ASCORBIC ACID 500 MG TABLET PO SCH ×2 (08:55→16:37)
[2016-12-25] MEDS: PROSOURCE / PROSTAT (PYXIS) 30 ML UDC PO SCH ×3 (08:55→16:37)
[2016-12-25] MEDS: HYDROGEL DRESSING 90 GM TUBE TP SCH (08:56)
[2016-12-25 16:00] VITALS: BP 156/75
[2016-12-25 20:00] VITALS: BP 143/70
[2016-12-25] MEDS: DONEPEZIL 5 MG TABLET PO SCH (21:45)
[2016-12-25] MEDS: AMLODIPINE BESYLATE 10 MG TABLET PO SCH (21:45)
[2016-12-25] MEDS: ATORVASTATIN 10 MG TABLET PO SCH (21:46)
[2016-12-25] MEDS: DOCUSATE SODIUM 100 MG CAPSULE PO SCH (21:46)
[2016-12-26] MEDS: BLOOD SUGAR DIAGNOSTIC 1 EACH STRIP IN SCH ×2 (06:04→12:00)
[2016-12-26 07:04] LABS: BASOPHILS # (AUTO) 0.1 /CMM (0.0-0.2); BASOPHILS % (AUTO) 0.6 % (0.0-2.0); DIFF TOTAL % 100 %; EOSINOPHILS # (AUTO) 0.2 /CMM (0.0-0.7); EOSINOPHILS % (AUTO) 1.7 % (0.0-6.0); HEMATOCRIT 30 % (39-51); HEMOGLOBIN 9.8 g/dL (13.5-17.5); LYMPHOCYTES # (AUTO) 1.9 /CMM (0.8-4.8); LYMPHOCYTES % (AUTO) 12.8 % (20.0-44.0); MEAN CORPUSCULAR HEMOGLOBIN 29 PG (26.0-33.0); MEAN CORPUSCULAR HGB CONC 33 g/dl (31.0-36.0); MEAN CORPUSCULAR VOLUME 87 fL (80-96); MONOCYTES # (AUTO) 1.1 /CMM (0.1-1.30); MONOCYTES % (AUTO) 7.3 % (2.0-12.0); NEUTROPHILS # (AUTO) 11.3 /CMM (1.8-8.9); NEUTROPHILS % (AUTO) 77.6 % (43.0-81.0); PLATELET COUNT (AUTO) 258 /CMM (150-450); RED BLOOD CELL COUNT(AUTO) 3.43 MIL/uL (4.5-6.0); WHITE BLOOD COUNT (AUTO) 14.6 K/uL (4.3-11.0)
[2016-12-26 07:37] LABS: CALCIUM, SERUM 8.9 mg/dL (8.5-10.1); CREATININE 6.2 mg/dL (0.6-1.3); POTASSIUM 4.4 mmol/L (3.5-5.1)
[2016-12-26 08:00] VITALS: BP 160/79
[2016-12-26] MEDS ORDERED: SUCR1ORA6 GT (09:23)
[2016-12-26] MEDS: Z GUARD REMEDY 2 OZ OINT TP PRN (09:29)
[2016-12-26] MEDS: PROSOURCE / PROSTAT (PYXIS) 30 ML UDC PO SCH ×2 (09:30→13:02)
[2016-12-26] MEDS: HYDROGEL DRESSING 90 GM TUBE TP SCH (09:30)
[2016-12-26] MEDS: SUCRALFATE 1 G/10 ML UDC GT SCH ×2 (09:30→13:02)
[2016-12-26] MEDS: VIT B CMPLX 3/FA/VIT C/BIOTIN 1 TAB TABLET PO SCH (09:31)
[2016-12-26] MEDS: MEGESTROL ACETATE 40 MG TABLET PO SCH (09:31)
[2016-12-26] MEDS: MULTIVITAMINS W-MINERALS 1 TAB TABLET PO SCH (09:31)
[2016-12-26] MEDS: ZINC SULFATE 220 MG CAPSULE PO SCH (09:31)
[2016-12-26] MEDS: TAMSULOSIN 0.4 MG CAP.SR.24H PO SCH (09:31)
[2016-12-26] MEDS: CARVEDILOL 3.125 MG TABLET PO SCH (09:31)
[2016-12-26] MEDS: ALLOPURINOL 100 MG TABLET PO SCH (09:31)
[2016-12-26 09:32] VITALS: BP 160/79
[2016-12-26] MEDS: LamoTRIgine 25 MG TABLET PO SCH (09:32)
[2016-12-26] MEDS: ENALAPRIL MALEATE (10 MG) 10 MG TABLET PO SCH (09:32)
[2016-12-26] MEDS: CITALOPRAM HYDROBROMIDE 20 MG TABLET PO SCH (09:32)
[2016-12-26] MEDS: ASCORBIC ACID 500 MG TABLET PO SCH (09:46)
[2016-12-26] MEDS ORDERED: SET RED CAP 1 EA INFUS.SET MC ONE (11:22)
== END 2016-12-26 14:20 | DRG 377 ==
LOC: ER 18:21 → TELE 20:15 → MED 12-24 14:29
PROVIDERS: ADMIT Contractor; ATTEND Contractor
PROC: 30233N1 Transfusion of Nonautologous Red Blood Cells into Peripheral Vein, Percutaneous Approach (ICD-10-PCS; principal; 2016-12-23)
PROC: 5A1D00Z (ICD-10-PCS; 2016-12-24)
DX: K25.4 Chronic or unspecified gastric ulcer with hemorrhage (principal); N18.6 End stage renal disease; R53.2 Functional quadriplegia; G93.41 Metabolic encephalopathy; E43 Unspecified severe protein-calorie malnutrition; F03.91 Unspecified dementia, unspecified severity, with behavioral disturbance; I13.2 Hypertensive heart and chronic kidney disease with heart failure and with stage 5 chronic kidney disease, or end stage renal disease; I50.32 Chronic diastolic (congestive) heart failure; D62 Acute posthemorrhagic anemia; E11.22 Type 2 diabetes mellitus with diabetic chronic kidney disease; Z99.2 Dependence on renal dialysis; D63.1 Anemia in chronic kidney disease; F29 Unspecified psychosis not due to a substance or known physiological condition; F32.9 Major depressive disorder, single episode, unspecified; K21.9 Gastro-esophageal reflux disease without esophagitis; Z86.73 Personal history of transient ischemic attack (TIA), and cerebral infarction without residual deficits; Z87.11 Personal history of peptic ulcer disease; N40.0 Benign prostatic hyperplasia without lower urinary tract symptoms; I25.10 Atherosclerotic heart disease of native coronary artery without angina pectoris; E03.9 Hypothyroidism, unspecified; F03.90 Unspecified dementia, unspecified severity, without behavioral disturbance, psychotic disturbance, mood disturbance, and anxiety; Z87.440 Personal history of urinary (tract) infections; G40.909 Epilepsy, unspecified, not intractable, without status epilepticus; I34.0 Nonrheumatic mitral (valve) insufficiency; R74.0 Nonspecific elevation of levels of transaminase and lactic acid dehydrogenase [LDH]; E88.09 Other disorders of plasma-protein metabolism, not elsewhere classified; M62.84 Sarcopenia; R62.7 Adult failure to thrive; D72.829 Elevated white blood cell count, unspecified
CPT/HCPCS: 36415; 71010-TC; 74000-TC; 80048-TC; 80053-TC; 80061-TC; 82272-TC; 82962-TC; 83540-TC; 83605-TC; 83735-TC; 84100-TC; 84443-TC; 85025-TC; 86850-TC; 86921-TC; 87040-TC; 87081-TC; 90935-TC; 94799-TC; A4606; A6248; A6402; A6403; C9113; J1815; J7030; J7050; P9016-BL; Z7610

== ENCOUNTER 2016-12-28 09:57 | Inpatient (IN) | payer MEDICARE, MEDICAID ==
[~2016-12-28] VITALS: Ht 170.2 cm; Wt 73.9 kg
[~2016-12-28 09:57] MED LIST changes: +ASCO-340 PO; +MAGN400O6 PO; -MERO500V3 IV; +MULT1TAB11 PO; -NUTR100037 PO; +SUCR1ORA6 GT; -VANC500V IV; +ZINC220T PO
[2016-12-28] MEDS ORDERED: IV NS 0.9% 1,000 ML BAG IV ONE (10:30)
[2016-12-28] MEDS ORDERED: CEFEPIME 1 GM in IV D5W 50 ML IV ONE (10:30)
[2016-12-28] MEDS ORDERED: SUCR1ORA2 PO (10:36)
[2016-12-28] MEDS ORDERED: LEVO750T21 PO (10:36)
[2016-12-28 10:44] LABS: BASOPHILS # (AUTO) 1.4 /CMM (0.0-0.2); BASOPHILS % (AUTO) 4.8 % (0.0-2.0); DIFF TOTAL % 100 %; HEMATOCRIT 30 % (39-51); HEMOGLOBIN 10.3 g/dL (13.5-17.5); LYMPHOCYTES # (AUTO) 1.3 /CMM (0.8-4.8); LYMPHOCYTES % (AUTO) 4.5 % (20.0-44.0); MEAN CORPUSCULAR HEMOGLOBIN 30 PG (26.0-33.0); MEAN CORPUSCULAR HGB CONC 34 g/dl (31.0-36.0); MEAN CORPUSCULAR VOLUME 87 fL (80-96); MONOCYTES # (AUTO) 1.1 /CMM (0.1-1.30); MONOCYTES % (AUTO) 3.9 % (2.0-12.0); NEUTROPHILS # (AUTO) 25.4 /CMM (1.8-8.9); NEUTROPHILS % (AUTO) 86.8 % (43.0-81.0); PLATELET COUNT (AUTO) 408 /CMM (150-450); RED BLOOD CELL COUNT(AUTO) 3.48 MIL/uL (4.5-6.0); WHITE BLOOD COUNT (AUTO) 29.2 K/uL (4.3-11.0)
[2016-12-28] MEDS ORDERED: IV SET PRIMARY PUMP SET 1 EA INFUS.SET MC ONE (10:44)
[2016-12-28] MEDS ORDERED: IV SET PRIMARY 1 EA INFUS.SET MC ONE (10:44)
[2016-12-28] MEDS ORDERED: IV NS 0.9% 2,000 ML ONE (10:44)
[2016-12-28 11:02] LABS: ALANINE AMINOTRANSFERASE 8 U/L (12-78); ALBUMIN 2.1 g/dL (3.4-5.0); ANION GAP 18 (5-14); ASPARTATE AMINOTRANSFERASE 14 U/L (15-37); BILIRUBIN,DIRECT 0.1 mg/dL (0.0-0.2); BILIRUBIN,TOTAL 0.5 mg/dL (0.2-1.0); CALCIUM, SERUM 9.2 mg/dL (8.5-10.1); CARBON DIOXIDE 27 mmol/L (21-32); CHLORIDE 96 mmol/L (98-107); GLUCOSE 133 mg/dL (74-106); INDIRECT BILIRUBIN 0.4 mg/dL (0.0-1.1); POTASSIUM 5.2 mmol/L (3.5-5.1); SODIUM SERUM 136 mmol/L (136-145); TOTAL PROTEIN, SERUM 6.4 g/dL (6.4-8.2)
[2016-12-28 11:03] LABS: UREA NITROGEN, BLOOD 100 mg/dL (7-18)
[2016-12-28 11:04] LABS: CREATININE 9.2 mg/dL (0.6-1.3); TROPONIN I < 0.017 ng/mL (0.00-0.056)
[2016-12-28 11:07] LABS: INR 1.17 (0.87-1.13); PROTHROMBIN TIME 12.3 SECS (9.5-12.7)
[2016-12-28 11:24] LABS: LACTIC ACID 1.7 mmol/L (0.4-2.0)
[2016-12-28] MEDS ORDERED: VANCOMYCIN 1 GM in IV D5W 250 ML IV ONE (11:30)
[2016-12-28 11:34] LABS: KETONES,URINE Negative (NEGATIVE); LEUKOCYTE ESTERASE ,URINE Moderate (NEGATIVE); PH,URINE 8.5 (5.0-8.0)
[2016-12-28 11:40] LABS: ADD UA MICROSCOPIC YES
[2016-12-28 11:46] LABS: ADD URINE CULTURE YES; RBC,URINE TOO NUMEROUS TO COUN /HPF (0-2)
[2016-12-28 12:12] LABS: ANISOCYTOSIS 1+; BAND % (MANUAL) 2 % (0.0-5.0); LYMPHOCYTES % (MANUAL) 4 % (16-48); PLATELET ESTIMATE ADEQUATE
[2016-12-28] MEDS ORDERED: MAG HYDROX/AL HYDROX/SIMETH 30 ML UDC PO PRN (14:30)
[2016-12-28] MEDS ORDERED: Z GUARD REMEDY 2 OZ OINT TP PRN (14:30)
[2016-12-28] MEDS ORDERED: ONDANSETRON HCL/PF 4 MG/2 ML VIAL IVP PRN (14:30)
[2016-12-28] MEDS ORDERED: MAGNESIUM HYDROXIDE 30 ML UDC PO PRN (14:30)
[2016-12-28] MEDS ORDERED: ACETAMINOPHEN 325 MG TABLET PO PRN (14:30)
[2016-12-28] MEDS ORDERED: FEE PK DOSING 1 MIN EA MC ONE (14:54)
[2016-12-28] MEDS ORDERED: MEROPENEM 500 MG in IV NS 0.9% 50 ML IV PRN (15:00)
[2016-12-28] MEDS: PROSOURCE / PROSTAT (PYXIS) 30 ML UDC PO SCH (16:39)
[2016-12-28] MEDS: SUCRALFATE 1 G/10 ML UDC PO SCH ×2 (16:39→22:55)
[2016-12-28] MEDS: CARVEDILOL 3.125 MG TABLET PO SCH (16:40)
[2016-12-28] MEDS: MEGESTROL ACETATE 40 MG TABLET PO SCH (16:40)
[2016-12-28] MEDS: ASCORBIC ACID 500 MG TABLET PO SCH (16:51)
[2016-12-28] MEDS ORDERED: ASCORBIC ACID SYRUP 500 MG/5 ML UDC PO SCH (17:00)
[2016-12-28 20:00] VITALS: BP 169/78
[2016-12-28] MEDS ORDERED: MORPHINE SULFATE INJ 2 MG/ML DISP.SYRIN IV PRN (22:30)
[2016-12-28] MEDS: ATORVASTATIN 10 MG TABLET PO SCH (22:55)
[2016-12-28] MEDS: DONEPEZIL 5 MG TABLET PO SCH (22:55)
[2016-12-29] VITALS: BP 138/76
[2016-12-29] MEDS ORDERED: IV NS 0.9% 1,000 ML ONE (01:00)
[2016-12-29] MEDS ORDERED: IV SET PRIMARY PUMP SET 1 EA INFUS.SET MC ONE (01:02)
[2016-12-29] MEDS ORDERED: SECONDARY IV SET 1 EA INFUS.SET MC ONE ×3 (01:03→10:44)
[2016-12-29] MEDS ORDERED: IPRATROPIUM NEB FS 0.5 MG/2.5 ML AMPUL.NEB ONE (01:25)
[2016-12-29] MEDS ORDERED: ALBUTEROL FS 2.5 MG/3 ML VIAL.NEB ONE (01:25)
[2016-12-29] MEDS ORDERED: IV NS 0.9% 1,000 ML BAG IV PRN (01:30)
[2016-12-29] MEDS: IPRATROPIUM NEB FS 0.5 MG/2.5 ML AMPUL.NEB NEB PRN (01:31)
[2016-12-29] MEDS: ALBUTEROL FS 2.5 MG/3 ML VIAL.NEB NEB PRN (01:31)
[2016-12-29 04:00] VITALS: BP 154/79
[2016-12-29 07:39] LABS: BASOPHILS # (AUTO) 0.1 /CMM (0.0-0.2); BASOPHILS % (AUTO) 0.2 % (0.0-2.0); DIFF TOTAL % 100 %; HEMATOCRIT 25 % (39-51); HEMOGLOBIN 8.4 g/dL (13.5-17.5); LYMPHOCYTES # (AUTO) 1.2 /CMM (0.8-4.8); LYMPHOCYTES % (AUTO) 4.6 % (20.0-44.0); MEAN CORPUSCULAR HEMOGLOBIN 29 PG (26.0-33.0); MEAN CORPUSCULAR HGB CONC 33 g/dl (31.0-36.0); MEAN CORPUSCULAR VOLUME 88 fL (80-96); MONOCYTES # (AUTO) 0.9 /CMM (0.1-1.30); MONOCYTES % (AUTO) 3.4 % (2.0-12.0); NEUTROPHILS # (AUTO) 24.3 /CMM (1.8-8.9); NEUTROPHILS % (AUTO) 91.8 % (43.0-81.0); PLATELET COUNT (AUTO) 319 /CMM (150-450); RED BLOOD CELL COUNT(AUTO) 2.89 MIL/uL (4.5-6.0); WHITE BLOOD COUNT (AUTO) 26.4 K/uL (4.3-11.0)
[2016-12-29 07:47] LABS: CALCIUM, SERUM 9.2 mg/dL (8.5-10.1); PHOSPHORUS 6.4 mg/dL (2.5-4.9); POTASSIUM 5.5 mmol/L (3.5-5.1)
[2016-12-29 07:49] LABS: CREATININE 9.2 mg/dL (0.6-1.3)
[2016-12-29 08:04] VITALS: BP 140/70
[2016-12-29] MEDS: VIT B CMPLX 3/FA/VIT C/BIOTIN 1 TAB TABLET PO SCH (08:42)
[2016-12-29] MEDS: LamoTRIgine 25 MG TABLET PO SCH (08:42)
[2016-12-29] MEDS: MULTIVITAMINS,THERAPEUTIC 1 UDTAB TABLET PO SCH (08:42)
[2016-12-29] MEDS: ENALAPRIL MALEATE (10 MG) 10 MG TABLET PO SCH (08:42)
[2016-12-29] MEDS: ASCORBIC ACID 500 MG TABLET PO SCH ×2 (08:42→16:35)
[2016-12-29] MEDS: MEGESTROL ACETATE 40 MG TABLET PO SCH ×2 (08:42→16:35)
[2016-12-29] MEDS: CITALOPRAM HYDROBROMIDE 20 MG TABLET PO SCH (08:43)
[2016-12-29] MEDS: TAMSULOSIN 0.4 MG CAP.SR.24H PO SCH (08:43)
[2016-12-29] MEDS: ALLOPURINOL 100 MG TABLET PO SCH (08:43)
[2016-12-29] MEDS: ZINC SULFATE 220 MG CAPSULE PO SCH (08:43)
[2016-12-29] MEDS: CARVEDILOL 3.125 MG TABLET PO SCH ×2 (08:43→16:35)
[2016-12-29] MEDS: PANTOPRAZOLE 40 MG TABLET.DR PO SCH (08:43)
[2016-12-29] MEDS: PROSOURCE / PROSTAT (PYXIS) 30 ML UDC PO SCH ×3 (08:43→16:35)
[2016-12-29] MEDS: SUCRALFATE 1 G/10 ML UDC PO SCH ×4 (08:43→21:08)
[2016-12-29] MEDS ORDERED: VANCOMYCIN 500 MG in IV D5W 100 ML IV PRN (09:00)
[2016-12-29] MEDS: MEROPENEM 500 MG in IV NS 0.9% 50 ML IV SCH (09:36)
[2016-12-29] MEDS ORDERED: CEFEPIME 0.5 GM in IV D5W 50 ML IV SCH (11:00)
[2016-12-29 12:00] VITALS: BP 140/65
[2016-12-29] MEDS: AMLODIPINE BESYLATE 10 MG TABLET PO SCH (15:30)
[2016-12-29 16:12] VITALS: BP 135/61
[2016-12-29 20:00] VITALS: BP 159/76
[2016-12-29] MEDS: ATORVASTATIN 10 MG TABLET PO SCH (21:08)
[2016-12-29] MEDS: DONEPEZIL 5 MG TABLET PO SCH (21:08)
[2016-12-30 06:32] LABS: BASOPHILS # (AUTO) 0.1 /CMM (0.0-0.2); BASOPHILS % (AUTO) 0.3 % (0.0-2.0); DIFF TOTAL % 100 %; EOSINOPHILS % (AUTO) 0.1 % (0.0-6.0); HEMATOCRIT 24 % (39-51); HEMOGLOBIN 7.7 g/dL (13.5-17.5); LYMPHOCYTES # (AUTO) 1.3 /CMM (0.8-4.8); LYMPHOCYTES % (AUTO) 5.4 % (20.0-44.0); MEAN CORPUSCULAR HEMOGLOBIN 29 PG (26.0-33.0); MEAN CORPUSCULAR HGB CONC 33 g/dl (31.0-36.0); MEAN CORPUSCULAR VOLUME 88 fL (80-96); MONOCYTES # (AUTO) 0.8 /CMM (0.1-1.30); MONOCYTES % (AUTO) 3.5 % (2.0-12.0); NEUTROPHILS # (AUTO) 21.1 /CMM (1.8-8.9); NEUTROPHILS % (AUTO) 90.7 % (43.0-81.0); PLATELET COUNT (AUTO) 313 /CMM (150-450); RED BLOOD CELL COUNT(AUTO) 2.68 MIL/uL (4.5-6.0); WHITE BLOOD COUNT (AUTO) 23.2 K/uL (4.3-11.0)
[2016-12-30 06:56] LABS: CALCIUM, SERUM 8.8 mg/dL (8.5-10.1); CREATININE 6.8 mg/dL (0.6-1.3); POTASSIUM 4.7 mmol/L (3.5-5.1)
[2016-12-30] MEDS: PANTOPRAZOLE 40 MG TABLET.DR PO SCH (07:30)
[2016-12-30] MEDS: SUCRALFATE 1 G/10 ML UDC PO SCH ×4 (07:30→22:09)
[2016-12-30] MEDS: IPRATROPIUM NEB FS 0.5 MG/2.5 ML AMPUL.NEB NEB PRN (07:52)
[2016-12-30] MEDS: ALBUTEROL FS 2.5 MG/3 ML VIAL.NEB NEB PRN (07:52)
[2016-12-30 08:53] VITALS: BP 156/72
[2016-12-30] MEDS: VIT B CMPLX 3/FA/VIT C/BIOTIN 1 TAB TABLET PO SCH (09:00)
[2016-12-30] MEDS: ENALAPRIL MALEATE (10 MG) 10 MG TABLET PO SCH (09:00)
[2016-12-30] MEDS: CARVEDILOL 3.125 MG TABLET PO SCH ×2 (09:00→17:00)
[2016-12-30] MEDS: CITALOPRAM HYDROBROMIDE 20 MG TABLET PO SCH (09:00)
[2016-12-30] MEDS: ALLOPURINOL 100 MG TABLET PO SCH (09:00)
[2016-12-30] MEDS: PROSOURCE / PROSTAT (PYXIS) 30 ML UDC PO SCH ×3 (09:00→17:00)
[2016-12-30] MEDS: MULTIVITAMINS,THERAPEUTIC 1 UDTAB TABLET PO SCH (09:00)
[2016-12-30] MEDS: TAMSULOSIN 0.4 MG CAP.SR.24H PO SCH (09:00)
[2016-12-30] MEDS: MEGESTROL ACETATE 40 MG TABLET PO SCH ×2 (09:00→17:00)
[2016-12-30] MEDS: ASCORBIC ACID 500 MG TABLET PO SCH ×2 (09:00→17:00)
[2016-12-30] MEDS: LamoTRIgine 25 MG TABLET PO SCH (09:00)
[2016-12-30] MEDS: ZINC SULFATE 220 MG CAPSULE PO SCH (09:00)
[2016-12-30 09:10] LABS: ANISOCYTOSIS 1+; LYMPHOCYTES % (MANUAL) 3 % (16-48); PLATELET ESTIMATE ADEQUATE
[2016-12-30] MEDS: MEROPENEM 500 MG in IV NS 0.9% 50 ML IV SCH (09:47)
[2016-12-30 14:18] LABS: ABG BASE EXCESS 3.1 mmol/L; ABG HCO3 25.9 mmol/L; ABG PCO2 31.6 mmHg (35.0-45.0); ABG PH 7.531 (7.350-7.450); ABG PO2 60.3 mmHg (75.0-100.0); ABG TOTAL HEMOGLOBIN 7.6 G/dL (13.5-18.0); ALLEN TEST Pass; AaDO2 159.7 mmHg; O2Hb 87.5 % (94.0-97.0)
[2016-12-30] MEDS: AMLODIPINE BESYLATE 10 MG TABLET PO SCH (15:30)
[2016-12-30 16:00] VITALS: BP 145/70
[2016-12-30 20:00] VITALS: BP 133/74
[2016-12-30 22:00] VITALS: BP 133/74
[2016-12-30] MEDS: DONEPEZIL 5 MG TABLET PO SCH (22:10)
[2016-12-30] MEDS: ATORVASTATIN 10 MG TABLET PO SCH (22:10)
[2016-12-31] VITALS (7 sets, daily range): BP systolic 130–166; BP diastolic 59–79
[2016-12-31 06:36] LABS: BASOPHILS # (AUTO) 0.1 /CMM (0.0-0.2); BASOPHILS % (AUTO) 0.4 % (0.0-2.0); DIFF TOTAL % 100 %; EOSINOPHILS # (AUTO) 0.1 /CMM (0.0-0.7); EOSINOPHILS % (AUTO) 0.5 % (0.0-6.0); HEMATOCRIT 22 % (39-51); HEMOGLOBIN 7.1 g/dL (13.5-17.5); LYMPHOCYTES # (AUTO) 0.9 /CMM (0.8-4.8); LYMPHOCYTES % (AUTO) 6.2 % (20.0-44.0); MEAN CORPUSCULAR HEMOGLOBIN 29 PG (26.0-33.0); MEAN CORPUSCULAR HGB CONC 33 g/dl (31.0-36.0); MEAN CORPUSCULAR VOLUME 89 fL (80-96); MONOCYTES # (AUTO) 0.6 /CMM (0.1-1.30); MONOCYTES % (AUTO) 3.8 % (2.0-12.0); NEUTROPHILS # (AUTO) 13.4 /CMM (1.8-8.9); NEUTROPHILS % (AUTO) 89.1 % (43.0-81.0); PLATELET COUNT (AUTO) 268 /CMM (150-450); RED BLOOD CELL COUNT(AUTO) 2.46 MIL/uL (4.5-6.0)
[2016-12-31 07:07] LABS: CALCIUM, SERUM 8.7 mg/dL (8.5-10.1); POTASSIUM 5.1 mmol/L (3.5-5.1)
[2016-12-31 07:09] LABS: CREATININE 8.1 mg/dL (0.6-1.3)
[2016-12-31] MEDS: PANTOPRAZOLE 40 MG VIAL IV SCH (10:10)
[2016-12-31] MEDS: SUCRALFATE 1 G/10 ML UDC PO SCH ×3 (10:10→18:14)
[2016-12-31] MEDS: ZINC SULFATE 220 MG CAPSULE PO SCH (10:10)
[2016-12-31] MEDS: VIT B CMPLX 3/FA/VIT C/BIOTIN 1 TAB TABLET PO SCH (10:10)
[2016-12-31] MEDS: CITALOPRAM HYDROBROMIDE 20 MG TABLET PO SCH (10:10)
[2016-12-31] MEDS: TAMSULOSIN 0.4 MG CAP.SR.24H PO SCH (10:10)
[2016-12-31] MEDS: PROSOURCE / PROSTAT (PYXIS) 30 ML UDC PO SCH ×3 (10:11→17:00)
[2016-12-31] MEDS: MEGESTROL ACETATE 40 MG TABLET PO SCH ×2 (10:11→17:00)
[2016-12-31] MEDS: CARVEDILOL 3.125 MG TABLET PO SCH ×2 (10:11→17:00)
[2016-12-31] MEDS: LamoTRIgine 25 MG TABLET PO SCH (10:11)
[2016-12-31] MEDS: MULTIVITAMINS,THERAPEUTIC 1 UDTAB TABLET PO SCH (10:11)
[2016-12-31] MEDS: ALLOPURINOL 100 MG TABLET PO SCH (10:11)
[2016-12-31] MEDS: ASCORBIC ACID 500 MG TABLET PO SCH ×2 (10:12→17:00)
[2016-12-31] MEDS: ENALAPRIL MALEATE (10 MG) 10 MG TABLET PO SCH (10:13)
[2016-12-31] MEDS: MEROPENEM 500 MG in IV NS 0.9% 50 ML IV SCH (10:15)
[2016-12-31] MEDS ORDERED: BLOOD IV SET 1 EA INFUS.SET MC ONE (11:09)
[2016-12-31] MEDS ORDERED: IV NS 0.9% 250 ML IV ONE (11:09)
[2016-12-31 16:51] LABS: BASOPHILS % (AUTO) 0.2 % (0.0-2.0); DIFF TOTAL % 100 %; EOSINOPHILS # (AUTO) 0.1 /CMM (0.0-0.7); EOSINOPHILS % (AUTO) 0.6 % (0.0-6.0); HEMATOCRIT 25 % (39-51); HEMOGLOBIN 8.1 g/dL (13.5-17.5); LYMPHOCYTES # (AUTO) 0.7 /CMM (0.8-4.8); MEAN CORPUSCULAR HEMOGLOBIN 29 PG (26.0-33.0); MEAN CORPUSCULAR HGB CONC 33 g/dl (31.0-36.0); MEAN CORPUSCULAR VOLUME 87 fL (80-96); MONOCYTES # (AUTO) 0.6 /CMM (0.1-1.30); MONOCYTES % (AUTO) 4.6 % (2.0-12.0); NEUTROPHILS % (AUTO) 89.6 % (43.0-81.0); PLATELET COUNT (AUTO) 253 /CMM (150-450); RED BLOOD CELL COUNT(AUTO) 2.83 MIL/uL (4.5-6.0); WHITE BLOOD COUNT (AUTO) 13.4 K/uL (4.3-11.0)
[2016-12-31 17:06] LABS: ALBUMIN 1.5 g/dL (3.4-5.0); BILIRUBIN,DIRECT 0.1 mg/dL (0.0-0.2); BILIRUBIN,TOTAL 0.5 mg/dL (0.2-1.0); INDIRECT BILIRUBIN 0.4 mg/dL (0.0-1.1); TOTAL PROTEIN, SERUM 5.3 g/dL (6.4-8.2)
[2016-12-31] MEDS ORDERED: SECONDARY IV SET 1 EA INFUS.SET MC ONE (19:36)
[2017-01-01] MEDS: SUCRALFATE 1 G/10 ML UDC PO SCH ×5 (00:58→21:30)
[2017-01-01] MEDS: ATORVASTATIN 10 MG TABLET PO SCH ×2 (00:59→21:30)
[2017-01-01] MEDS: DONEPEZIL 5 MG TABLET PO SCH ×2 (00:59→21:30)
[2017-01-01 07:48] LABS: CALCIUM, SERUM 8.2 mg/dL (8.5-10.1); CREATININE 4.9 mg/dL (0.6-1.3); POTASSIUM 3.8 mmol/L (3.5-5.1)
[2017-01-01 08:00] VITALS: BP 168/80
[2017-01-01] MEDS: CITALOPRAM HYDROBROMIDE 20 MG TABLET PO SCH (08:48)
[2017-01-01] MEDS: ASCORBIC ACID 500 MG TABLET PO SCH ×2 (08:48→18:24)
[2017-01-01] MEDS: MEGESTROL ACETATE 40 MG TABLET PO SCH ×2 (08:48→18:24)
[2017-01-01] MEDS: MULTIVITAMINS,THERAPEUTIC 1 UDTAB TABLET PO SCH (08:48)
[2017-01-01] MEDS: TAMSULOSIN 0.4 MG CAP.SR.24H PO SCH (08:48)
[2017-01-01] MEDS: LamoTRIgine 25 MG TABLET PO SCH (08:48)
[2017-01-01] MEDS: VIT B CMPLX 3/FA/VIT C/BIOTIN 1 TAB TABLET PO SCH (08:48)
[2017-01-01] MEDS: ALLOPURINOL 100 MG TABLET PO SCH (08:48)
[2017-01-01] MEDS: ZINC SULFATE 220 MG CAPSULE PO SCH (08:48)
[2017-01-01] MEDS: PANTOPRAZOLE 40 MG VIAL IV SCH (08:49)
[2017-01-01] MEDS: PROSOURCE / PROSTAT (PYXIS) 30 ML UDC PO SCH ×3 (08:49→18:24)
[2017-01-01] MEDS: CARVEDILOL 3.125 MG TABLET PO SCH ×2 (08:49→18:25)
[2017-01-01] MEDS: ENALAPRIL MALEATE (10 MG) 10 MG TABLET PO SCH (08:50)
[2017-01-01] MEDS: MEROPENEM 500 MG in IV NS 0.9% 50 ML IV SCH (09:08)
[2017-01-01 16:00] VITALS: BP 129/71
[2017-01-01] MEDS: AMLODIPINE BESYLATE 10 MG TABLET PO SCH (18:28)
[2017-01-01 20:00] VITALS: BP 149/79
[2017-01-02 06:47] LABS: CALCIUM, SERUM 8.3 mg/dL (8.5-10.1); CREATININE 6.1 mg/dL (0.6-1.3); POTASSIUM 4.1 mmol/L (3.5-5.1)
[2017-01-02 08:00] VITALS: BP 137/63
[2017-01-02] MEDS: CARVEDILOL 3.125 MG TABLET PO SCH ×2 (09:00→17:00)
[2017-01-02] MEDS: ENALAPRIL MALEATE (10 MG) 10 MG TABLET PO SCH (09:00)
[2017-01-02] MEDS: MEGESTROL ACETATE 40 MG TABLET PO SCH ×2 (10:37→18:05)
[2017-01-02] MEDS: SUCRALFATE 1 G/10 ML UDC PO SCH ×4 (10:37→21:45)
[2017-01-02] MEDS: LamoTRIgine 25 MG TABLET PO SCH (10:37)
[2017-01-02] MEDS: ZINC SULFATE 220 MG CAPSULE PO SCH (10:37)
[2017-01-02] MEDS: TAMSULOSIN 0.4 MG CAP.SR.24H PO SCH (10:37)
[2017-01-02] MEDS: PROSOURCE / PROSTAT (PYXIS) 30 ML UDC PO SCH ×3 (10:38→18:05)
[2017-01-02] MEDS: MULTIVITAMINS,THERAPEUTIC 1 UDTAB TABLET PO SCH (10:38)
[2017-01-02] MEDS: CITALOPRAM HYDROBROMIDE 20 MG TABLET PO SCH (10:38)
[2017-01-02] MEDS: ALLOPURINOL 100 MG TABLET PO SCH (10:38)
[2017-01-02] MEDS: VIT B CMPLX 3/FA/VIT C/BIOTIN 1 TAB TABLET PO SCH (10:38)
[2017-01-02] MEDS: ASCORBIC ACID 500 MG TABLET PO SCH ×2 (10:38→18:05)
[2017-01-02 10:50] LABS: BASOPHILS % (AUTO) 0.3 % (0.0-2.0); DIFF TOTAL % 100 %; EOSINOPHILS # (AUTO) 0.3 /CMM (0.0-0.7); EOSINOPHILS % (AUTO) 2.1 % (0.0-6.0); HEMATOCRIT 24 % (39-51); HEMOGLOBIN 7.8 g/dL (13.5-17.5); LYMPHOCYTES # (AUTO) 1.2 /CMM (0.8-4.8); LYMPHOCYTES % (AUTO) 8.8 % (20.0-44.0); MEAN CORPUSCULAR HEMOGLOBIN 29 PG (26.0-33.0); MEAN CORPUSCULAR HGB CONC 33 g/dl (31.0-36.0); MEAN CORPUSCULAR VOLUME 87 fL (80-96); MONOCYTES # (AUTO) 0.8 /CMM (0.1-1.30); MONOCYTES % (AUTO) 6.2 % (2.0-12.0); NEUTROPHILS % (AUTO) 82.6 % (43.0-81.0); PLATELET COUNT (AUTO) 249 /CMM (150-450); RED BLOOD CELL COUNT(AUTO) 2.73 MIL/uL (4.5-6.0); WHITE BLOOD COUNT (AUTO) 13.3 K/uL (4.3-11.0)
[2017-01-02] MEDS: PANTOPRAZOLE 40 MG VIAL IV SCH (10:56)
[2017-01-02] MEDS: MEROPENEM 500 MG in IV NS 0.9% 50 ML IV SCH (10:58)
[2017-01-02 16:00] VITALS: BP 116/61
[2017-01-02 20:00] VITALS: BP 126/67
[2017-01-02] MEDS: DONEPEZIL 5 MG TABLET PO SCH (21:45)
[2017-01-02] MEDS: ATORVASTATIN 10 MG TABLET PO SCH (21:45)
[2017-01-03] VITALS (10 sets, daily range): BP systolic 124–151; BP diastolic 59–71
[2017-01-03 07:41] LABS: BASOPHILS # (AUTO) 0.1 /CMM (0.0-0.2); BASOPHILS % (AUTO) 0.9 % (0.0-2.0); DIFF TOTAL % 100 %; EOSINOPHILS # (AUTO) 0.2 /CMM (0.0-0.7); EOSINOPHILS % (AUTO) 1.3 % (0.0-6.0); HEMATOCRIT 23 % (39-51); HEMOGLOBIN 7.6 g/dL (13.5-17.5); LYMPHOCYTES # (AUTO) 1.2 /CMM (0.8-4.8); LYMPHOCYTES % (AUTO) 8.4 % (20.0-44.0); MEAN CORPUSCULAR HEMOGLOBIN 29 PG (26.0-33.0); MEAN CORPUSCULAR HGB CONC 33 g/dl (31.0-36.0); MEAN CORPUSCULAR VOLUME 87 fL (80-96); MONOCYTES # (AUTO) 0.8 /CMM (0.1-1.30); MONOCYTES % (AUTO) 5.4 % (2.0-12.0); NEUTROPHILS # (AUTO) 11.9 /CMM (1.8-8.9); PLATELET COUNT (AUTO) 235 /CMM (150-450); WHITE BLOOD COUNT (AUTO) 14.1 K/uL (4.3-11.0)
[2017-01-03 07:52] LABS: CALCIUM, SERUM 7.7 mg/dL (8.5-10.1); CREATININE 5.2 mg/dL (0.6-1.3); POTASSIUM 3.6 mmol/L (3.5-5.1)
[2017-01-03] MEDS: ALLOPURINOL 100 MG TABLET PO SCH (09:11)
[2017-01-03] MEDS: PROSOURCE / PROSTAT (PYXIS) 30 ML UDC PO SCH ×3 (09:11→16:42)
[2017-01-03] MEDS: TAMSULOSIN 0.4 MG CAP.SR.24H PO SCH (09:11)
[2017-01-03] MEDS: MULTIVITAMINS,THERAPEUTIC 1 UDTAB TABLET PO SCH (09:11)
[2017-01-03] MEDS: PANTOPRAZOLE 40 MG VIAL IV SCH (09:11)
[2017-01-03] MEDS: CARVEDILOL 3.125 MG TABLET PO SCH ×2 (09:11→16:42)
[2017-01-03] MEDS: VIT B CMPLX 3/FA/VIT C/BIOTIN 1 TAB TABLET PO SCH (09:11)
[2017-01-03] MEDS: ZINC SULFATE 220 MG CAPSULE PO SCH (09:11)
[2017-01-03] MEDS: MEGESTROL ACETATE 40 MG TABLET PO SCH ×2 (09:11→16:42)
[2017-01-03] MEDS: CITALOPRAM HYDROBROMIDE 20 MG TABLET PO SCH (09:11)
[2017-01-03] MEDS: LamoTRIgine 25 MG TABLET PO SCH (09:12)
[2017-01-03] MEDS: ASCORBIC ACID 500 MG TABLET PO SCH ×2 (09:12→16:42)
[2017-01-03] MEDS: ENALAPRIL MALEATE (10 MG) 10 MG TABLET PO SCH (09:12)
[2017-01-03] MEDS: SUCRALFATE 1 G/10 ML UDC PO SCH ×4 (09:12→21:45)
[2017-01-03] MEDS: MEROPENEM 500 MG in IV NS 0.9% 50 ML IV SCH (09:19)
[2017-01-03] MEDS: OSELTAMIVIR PHOSPHATE 75 MG CAPSULE PO SCH (13:34)
[2017-01-03] MEDS ORDERED: IV NS 0.9% 250 ML IV ONE (14:47)
[2017-01-03] MEDS ORDERED: BLOOD IV SET 1 EA INFUS.SET MC ONE (14:47)
[2017-01-03] MEDS: AMLODIPINE BESYLATE 10 MG TABLET PO SCH (15:38)
[2017-01-03] MEDS: ATORVASTATIN 10 MG TABLET PO SCH (21:45)
[2017-01-03] MEDS: DONEPEZIL 5 MG TABLET PO SCH (21:45)
[2017-01-04 07:30] LABS: CALCIUM, SERUM 8.4 mg/dL (8.5-10.1); CREATININE 6.1 mg/dL (0.6-1.3); POTASSIUM 3.8 mmol/L (3.5-5.1)
[2017-01-04 07:56] LABS: BASOPHILS % (AUTO) 0.1 % (0.0-2.0); DIFF TOTAL % 100 %; EOSINOPHILS # (AUTO) 0.3 /CMM (0.0-0.7); HEMATOCRIT 29 % (39-51); HEMOGLOBIN 9.6 g/dL (13.5-17.5); LYMPHOCYTES # (AUTO) 1.2 /CMM (0.8-4.8); LYMPHOCYTES % (AUTO) 9.6 % (20.0-44.0); MEAN CORPUSCULAR HEMOGLOBIN 28 PG (26.0-33.0); MEAN CORPUSCULAR HGB CONC 33 g/dl (31.0-36.0); MEAN CORPUSCULAR VOLUME 85 fL (80-96); MONOCYTES # (AUTO) 0.5 /CMM (0.1-1.30); MONOCYTES % (AUTO) 4.3 % (2.0-12.0); NEUTROPHILS # (AUTO) 10.6 /CMM (1.8-8.9); PLATELET COUNT (AUTO) 239 /CMM (150-450); RED BLOOD CELL COUNT(AUTO) 3.44 MIL/uL (4.5-6.0); WHITE BLOOD COUNT (AUTO) 12.6 K/uL (4.3-11.0)
[2017-01-04 08:00] VITALS: BP 180/76
[2017-01-04] MEDS: MEROPENEM 500 MG in IV NS 0.9% 50 ML IV SCH (11:17)
[2017-01-04] MEDS: SUCRALFATE 1 G/10 ML UDC PO SCH ×4 (11:18→21:46)
[2017-01-04] MEDS: PROSOURCE / PROSTAT (PYXIS) 30 ML UDC PO SCH ×3 (11:18→17:57)
[2017-01-04] MEDS: MEGESTROL ACETATE 40 MG TABLET PO SCH ×2 (11:19→17:57)
[2017-01-04] MEDS: CITALOPRAM HYDROBROMIDE 20 MG TABLET PO SCH (11:19)
[2017-01-04] MEDS: TAMSULOSIN 0.4 MG CAP.SR.24H PO SCH (11:19)
[2017-01-04] MEDS: MULTIVITAMINS,THERAPEUTIC 1 UDTAB TABLET PO SCH (11:19)
[2017-01-04] MEDS: ALLOPURINOL 100 MG TABLET PO SCH (11:19)
[2017-01-04] MEDS: ASCORBIC ACID 500 MG TABLET PO SCH ×2 (11:19→17:57)
[2017-01-04] MEDS: ZINC SULFATE 220 MG CAPSULE PO SCH (11:20)
[2017-01-04] MEDS: OSELTAMIVIR PHOSPHATE 75 MG CAPSULE PO SCH (11:20)
[2017-01-04] MEDS: VIT B CMPLX 3/FA/VIT C/BIOTIN 1 TAB TABLET PO SCH (11:20)
[2017-01-04] MEDS: PANTOPRAZOLE 40 MG VIAL IV SCH (11:20)
[2017-01-04] MEDS: LamoTRIgine 25 MG TABLET PO SCH (11:20)
[2017-01-04] MEDS: CARVEDILOL 3.125 MG TABLET PO SCH ×2 (11:24→17:57)
[2017-01-04] MEDS: ENALAPRIL MALEATE (10 MG) 10 MG TABLET PO SCH (11:25)
[2017-01-04] MEDS ORDERED: VANCOMYCIN 1 GM in IV D5W 250 ML IV ONE (14:00)
[2017-01-04 16:00] VITALS: BP 145/77
[2017-01-04 20:00] VITALS: BP 149/90
[2017-01-04] MEDS: DONEPEZIL 5 MG TABLET PO SCH (21:46)
[2017-01-04] MEDS: ATORVASTATIN 10 MG TABLET PO SCH (21:46)
[2017-01-05 06:53] LABS: BASOPHILS # (AUTO) 0.2 /CMM (0.0-0.2); BASOPHILS % (AUTO) 1.1 % (0.0-2.0); DIFF TOTAL % 100 %; EOSINOPHILS # (AUTO) 0.2 /CMM (0.0-0.7); EOSINOPHILS % (AUTO) 1.5 % (0.0-6.0); HEMATOCRIT 29 % (39-51); HEMOGLOBIN 9.5 g/dL (13.5-17.5); LYMPHOCYTES # (AUTO) 1.5 /CMM (0.8-4.8); MEAN CORPUSCULAR HEMOGLOBIN 28 PG (26.0-33.0); MEAN CORPUSCULAR HGB CONC 33 g/dl (31.0-36.0); MEAN CORPUSCULAR VOLUME 86 fL (80-96); MONOCYTES # (AUTO) 0.9 /CMM (0.1-1.30); MONOCYTES % (AUTO) 6.7 % (2.0-12.0); NEUTROPHILS # (AUTO) 10.6 /CMM (1.8-8.9); NEUTROPHILS % (AUTO) 79.7 % (43.0-81.0); PLATELET COUNT (AUTO) 261 /CMM (150-450); RED BLOOD CELL COUNT(AUTO) 3.36 MIL/uL (4.5-6.0); WHITE BLOOD COUNT (AUTO) 13.3 K/uL (4.3-11.0)
[2017-01-05 07:12] LABS: CALCIUM, SERUM 8.2 mg/dL (8.5-10.1); CREATININE 4.8 mg/dL (0.6-1.3); POTASSIUM 3.7 mmol/L (3.5-5.1)
[2017-01-05] MEDS: SUCRALFATE 1 G/10 ML UDC PO SCH ×4 (07:29→21:00)
[2017-01-05 08:00] VITALS: BP 151/77
[2017-01-05] MEDS: CITALOPRAM HYDROBROMIDE 20 MG TABLET PO SCH (08:59)
[2017-01-05] MEDS: TAMSULOSIN 0.4 MG CAP.SR.24H PO SCH (08:59)
[2017-01-05] MEDS: MEROPENEM 500 MG in IV NS 0.9% 50 ML IV SCH (08:59)
[2017-01-05] MEDS: MULTIVITAMINS,THERAPEUTIC 1 UDTAB TABLET PO SCH (08:59)
[2017-01-05] MEDS: ASCORBIC ACID 500 MG TABLET PO SCH ×2 (08:59→17:07)
[2017-01-05] MEDS: VIT B CMPLX 3/FA/VIT C/BIOTIN 1 TAB TABLET PO SCH (08:59)
[2017-01-05] MEDS: LamoTRIgine 25 MG TABLET PO SCH (09:00)
[2017-01-05] MEDS: CARVEDILOL 3.125 MG TABLET PO SCH ×2 (09:00→16:50)
[2017-01-05] MEDS: ALLOPURINOL 100 MG TABLET PO SCH (09:00)
[2017-01-05] MEDS: OSELTAMIVIR PHOSPHATE 75 MG CAPSULE PO SCH (09:00)
[2017-01-05] MEDS: MEGESTROL ACETATE 40 MG TABLET PO SCH ×2 (09:00→16:49)
[2017-01-05] MEDS: ZINC SULFATE 220 MG CAPSULE PO SCH (09:01)
[2017-01-05] MEDS: ENALAPRIL MALEATE (10 MG) 10 MG TABLET PO SCH (09:01)
[2017-01-05] MEDS: PROSOURCE / PROSTAT (PYXIS) 30 ML UDC PO SCH ×3 (09:01→16:49)
[2017-01-05] MEDS: PANTOPRAZOLE 40 MG VIAL IV SCH (09:01)
[2017-01-05] MEDS ORDERED: IV NS 0.9% 250 ML IV ONE (09:16)
[2017-01-05] MEDS ORDERED: IV SET PRIMARY PUMP SET 1 EA INFUS.SET MC ONE (09:16)
[2017-01-05] MEDS ORDERED: SECONDARY IV SET 1 EA INFUS.SET MC ONE (09:17)
[2017-01-05] MEDS: AMLODIPINE BESYLATE 10 MG TABLET PO SCH (15:07)
[2017-01-05 16:00] VITALS: BP 150/78
[2017-01-05 20:00] VITALS: BP 142/70
[2017-01-05 20:55] VITALS: BP 142/70
[2017-01-05] MEDS: DONEPEZIL 5 MG TABLET PO SCH (21:00)
[2017-01-05] MEDS: ATORVASTATIN 10 MG TABLET PO SCH (21:00)
[2017-01-06 07:41] LABS: BASOPHILS % (AUTO) 0.8 % (0.0-2.0); DIFF TOTAL % 100 %; HEMATOCRIT 25 % (39-51); HEMOGLOBIN 8.3 g/dL (13.5-17.5); LYMPHOCYTES # (AUTO) 1.5 /CMM (0.8-4.8); LYMPHOCYTES % (AUTO) 11.8 % (20.0-44.0); MEAN CORPUSCULAR HEMOGLOBIN 28 PG (26.0-33.0); MEAN CORPUSCULAR HGB CONC 33 g/dl (31.0-36.0); MEAN CORPUSCULAR VOLUME 85 fL (80-96); MONOCYTES % (AUTO) 5.1 % (2.0-12.0); NEUTROPHILS # (AUTO) 9.9 /CMM (1.8-8.9); NEUTROPHILS % (AUTO) 80.3 % (43.0-81.0); PLATELET COUNT (AUTO) 243 /CMM (150-450); RED BLOOD CELL COUNT(AUTO) 2.97 MIL/uL (4.5-6.0); WHITE BLOOD COUNT (AUTO) 12.3 K/uL (4.3-11.0)
[2017-01-06 07:42] LABS: BASOPHILS # (AUTO) 0.1 /CMM (0.0-0.2); EOSINOPHILS # (AUTO) 0.2 /CMM (0.0-0.7); MONOCYTES # (AUTO) 0.6 /CMM (0.1-1.30)
[2017-01-06 07:56] LABS: CALCIUM, SERUM 8.4 mg/dL (8.5-10.1); CREATININE 5.7 mg/dL (0.6-1.3); POTASSIUM 3.7 mmol/L (3.5-5.1)
[2017-01-06 08:00] VITALS: BP 156/70
[2017-01-06] MEDS: SUCRALFATE 1 G/10 ML UDC PO SCH ×4 (08:00→21:50)
[2017-01-06] MEDS: ZINC SULFATE 220 MG CAPSULE PO SCH (08:26)
[2017-01-06] MEDS: PROSOURCE / PROSTAT (PYXIS) 30 ML UDC PO SCH ×3 (08:26→17:12)
[2017-01-06] MEDS: MEROPENEM 500 MG in IV NS 0.9% 50 ML IV SCH (08:26)
[2017-01-06] MEDS: TAMSULOSIN 0.4 MG CAP.SR.24H PO SCH (08:26)
[2017-01-06] MEDS: MEGESTROL ACETATE 40 MG TABLET PO SCH ×2 (08:27→17:13)
[2017-01-06] MEDS: CITALOPRAM HYDROBROMIDE 20 MG TABLET PO SCH (08:27)
[2017-01-06] MEDS: ALLOPURINOL 100 MG TABLET PO SCH (08:27)
[2017-01-06] MEDS: OSELTAMIVIR PHOSPHATE 75 MG CAPSULE PO SCH (08:27)
[2017-01-06] MEDS: ASCORBIC ACID 500 MG TABLET PO SCH ×2 (08:27→17:12)
[2017-01-06] MEDS: VIT B CMPLX 3/FA/VIT C/BIOTIN 1 TAB TABLET PO SCH (08:27)
[2017-01-06] MEDS: LamoTRIgine 25 MG TABLET PO SCH (08:28)
[2017-01-06] MEDS: PANTOPRAZOLE 40 MG VIAL IV SCH (08:30)
[2017-01-06] MEDS: ENALAPRIL MALEATE (10 MG) 10 MG TABLET PO SCH (09:00)
[2017-01-06] MEDS ORDERED: OSELTAMIVIR PHOSPHATE 75 MG CAPSULE PO SCH (09:00)
[2017-01-06] MEDS: CARVEDILOL 3.125 MG TABLET PO SCH ×2 (09:00→17:13)
[2017-01-06] MEDS: VANCOMYCIN 500 MG in IV D5W 100 ML IV PRN (13:30)
[2017-01-06] MEDS: AMLODIPINE BESYLATE 10 MG TABLET PO SCH (15:08)
[2017-01-06 16:00] VITALS: BP 156/76
[2017-01-06 20:00] VITALS: BP 153/71
[2017-01-06] MEDS: DONEPEZIL 5 MG TABLET PO SCH (21:50)
[2017-01-06] MEDS: ATORVASTATIN 10 MG TABLET PO SCH (21:50)
[2017-01-07] VITALS (17 sets, daily range): BP systolic 126–163; BP diastolic 64–78
[2017-01-07] MEDS: SUCRALFATE 1 G/10 ML UDC PO SCH ×4 (06:55→21:21)
[2017-01-07 07:02] LABS: BASOPHILS # (AUTO) 0.1 /CMM (0.0-0.2); BASOPHILS % (AUTO) 0.4 % (0.0-2.0); DIFF TOTAL % 100 %; EOSINOPHILS # (AUTO) 0.2 /CMM (0.0-0.7); EOSINOPHILS % (AUTO) 1.3 % (0.0-6.0); HEMATOCRIT 24 % (39-51); HEMOGLOBIN 7.9 g/dL (13.5-17.5); LYMPHOCYTES # (AUTO) 1.5 /CMM (0.8-4.8); LYMPHOCYTES % (AUTO) 10.6 % (20.0-44.0); MEAN CORPUSCULAR HEMOGLOBIN 29 PG (26.0-33.0); MEAN CORPUSCULAR HGB CONC 34 g/dl (31.0-36.0); MEAN CORPUSCULAR VOLUME 85 fL (80-96); NEUTROPHILS # (AUTO) 11.2 /CMM (1.8-8.9); NEUTROPHILS % (AUTO) 80.7 % (43.0-81.0); PLATELET COUNT (AUTO) 239 /CMM (150-450); RED BLOOD CELL COUNT(AUTO) 2.76 MIL/uL (4.5-6.0); WHITE BLOOD COUNT (AUTO) 13.9 K/uL (4.3-11.0)
[2017-01-07 07:28] LABS: CALCIUM, SERUM 8.3 mg/dL (8.5-10.1); CREATININE 5.1 mg/dL (0.6-1.3); POTASSIUM 3.7 mmol/L (3.5-5.1)
[2017-01-07] MEDS: PANTOPRAZOLE 40 MG VIAL IV SCH (08:26)
[2017-01-07] MEDS: MEROPENEM 500 MG in IV NS 0.9% 50 ML IV SCH (08:26)
[2017-01-07] MEDS: ENALAPRIL MALEATE (10 MG) 10 MG TABLET PO SCH (08:27)
[2017-01-07] MEDS: ALLOPURINOL 100 MG TABLET PO SCH (08:27)
[2017-01-07] MEDS: VIT B CMPLX 3/FA/VIT C/BIOTIN 1 TAB TABLET PO SCH (08:27)
[2017-01-07] MEDS: CARVEDILOL 3.125 MG TABLET PO SCH ×2 (08:27→17:18)
[2017-01-07] MEDS: TAMSULOSIN 0.4 MG CAP.SR.24H PO SCH (08:27)
[2017-01-07] MEDS: ZINC SULFATE 220 MG CAPSULE PO SCH (08:27)
[2017-01-07] MEDS: CITALOPRAM HYDROBROMIDE 20 MG TABLET PO SCH (08:28)
[2017-01-07] MEDS: LamoTRIgine 25 MG TABLET PO SCH (08:28)
[2017-01-07] MEDS: MEGESTROL ACETATE 40 MG TABLET PO SCH ×2 (08:28→17:18)
[2017-01-07] MEDS: ASCORBIC ACID 500 MG TABLET PO SCH ×2 (08:28→17:18)
[2017-01-07] MEDS: PROSOURCE / PROSTAT (PYXIS) 30 ML UDC PO SCH ×3 (08:34→17:17)
[2017-01-07] MEDS ORDERED: IV NS 0.9% 250 ML IV ONE (11:10)
[2017-01-07] MEDS ORDERED: BLOOD IV SET 1 EA INFUS.SET MC ONE ×2 (11:11→15:21)
[2017-01-07] MEDS: ATORVASTATIN 10 MG TABLET PO SCH (21:21)
[2017-01-07] MEDS: DONEPEZIL 5 MG TABLET PO SCH (21:21)
[2017-01-07 23:32] LABS: BASOPHILS # (AUTO) 0.1 /CMM (0.0-0.2); BASOPHILS % (AUTO) 0.7 % (0.0-2.0); DIFF TOTAL % 100 %; EOSINOPHILS # (AUTO) 0.2 /CMM (0.0-0.7); EOSINOPHILS % (AUTO) 1.1 % (0.0-6.0); HEMATOCRIT 32 % (39-51); HEMOGLOBIN 10.4 g/dL (13.5-17.5); LYMPHOCYTES # (AUTO) 1.6 /CMM (0.8-4.8); LYMPHOCYTES % (AUTO) 9.5 % (20.0-44.0); MEAN CORPUSCULAR HEMOGLOBIN 28 PG (26.0-33.0); MEAN CORPUSCULAR HGB CONC 33 g/dl (31.0-36.0); MEAN CORPUSCULAR VOLUME 85 fL (80-96); MONOCYTES # (AUTO) 0.9 /CMM (0.1-1.30); MONOCYTES % (AUTO) 5.6 % (2.0-12.0); NEUTROPHILS # (AUTO) 13.9 /CMM (1.8-8.9); NEUTROPHILS % (AUTO) 83.1 % (43.0-81.0); PLATELET COUNT (AUTO) 201 /CMM (150-450); RED BLOOD CELL COUNT(AUTO) 3.73 MIL/uL (4.5-6.0); WHITE BLOOD COUNT (AUTO) 16.7 K/uL (4.3-11.0)
[2017-01-08 01:12] LABS: LYMPHOCYTES % (MANUAL) 8 % (16-48)
[2017-01-08 01:14] LABS: ANISOCYTOSIS 1+; PLATELET ESTIMATE ADEQUATE
[2017-01-08 08:00] VITALS: BP 172/92
[2017-01-08 08:03] LABS: BASOPHILS # (AUTO) 0.1 /CMM (0.0-0.2); BASOPHILS % (AUTO) 0.5 % (0.0-2.0); DIFF TOTAL % 100 %; EOSINOPHILS # (AUTO) 0.2 /CMM (0.0-0.7); EOSINOPHILS % (AUTO) 1.6 % (0.0-6.0); HEMATOCRIT 31 % (39-51); HEMOGLOBIN 10.4 g/dL (13.5-17.5); LYMPHOCYTES # (AUTO) 1.4 /CMM (0.8-4.8); LYMPHOCYTES % (AUTO) 10.7 % (20.0-44.0); MEAN CORPUSCULAR HEMOGLOBIN 28 PG (26.0-33.0); MEAN CORPUSCULAR HGB CONC 33 g/dl (31.0-36.0); MEAN CORPUSCULAR VOLUME 85 fL (80-96); MONOCYTES # (AUTO) 0.5 /CMM (0.1-1.30); MONOCYTES % (AUTO) 4.3 % (2.0-12.0); NEUTROPHILS # (AUTO) 10.7 /CMM (1.8-8.9); NEUTROPHILS % (AUTO) 82.9 % (43.0-81.0); PLATELET COUNT (AUTO) 227 /CMM (150-450); RED BLOOD CELL COUNT(AUTO) 3.67 MIL/uL (4.5-6.0); WHITE BLOOD COUNT (AUTO) 12.9 K/uL (4.3-11.0)
[2017-01-08 08:30] LABS: CALCIUM, SERUM 8.3 mg/dL (8.5-10.1); CREATININE 4.5 mg/dL (0.6-1.3); POTASSIUM 3.6 mmol/L (3.5-5.1)
[2017-01-08] MEDS: PANTOPRAZOLE 40 MG VIAL IV SCH (10:08)
[2017-01-08] MEDS: PROSOURCE / PROSTAT (PYXIS) 30 ML UDC PO SCH ×3 (10:08→18:42)
[2017-01-08] MEDS: MEGESTROL ACETATE 40 MG TABLET PO SCH ×2 (10:09→18:42)
[2017-01-08] MEDS: LamoTRIgine 25 MG TABLET PO SCH (10:09)
[2017-01-08] MEDS: CITALOPRAM HYDROBROMIDE 20 MG TABLET PO SCH (10:09)
[2017-01-08] MEDS: ASCORBIC ACID 500 MG TABLET PO SCH ×2 (10:09→18:42)
[2017-01-08] MEDS: CARVEDILOL 3.125 MG TABLET PO SCH ×2 (10:10→18:44)
[2017-01-08] MEDS: ALLOPURINOL 100 MG TABLET PO SCH (10:10)
[2017-01-08] MEDS: VIT B CMPLX 3/FA/VIT C/BIOTIN 1 TAB TABLET PO SCH (10:10)
[2017-01-08] MEDS: TAMSULOSIN 0.4 MG CAP.SR.24H PO SCH (10:10)
[2017-01-08] MEDS: ENALAPRIL MALEATE (10 MG) 10 MG TABLET PO SCH (10:11)
[2017-01-08] MEDS: MEROPENEM 500 MG in IV NS 0.9% 50 ML IV SCH (10:11)
[2017-01-08] MEDS: ZINC SULFATE 220 MG CAPSULE PO SCH (10:14)
[2017-01-08] MEDS: SUCRALFATE 1 G/10 ML UDC PO SCH ×4 (10:14→21:13)
[2017-01-08] MEDS ORDERED: SECONDARY IV SET 1 EA INFUS.SET MC ONE (13:13)
[2017-01-08] MEDS: VANCOMYCIN 500 MG in IV D5W 100 ML IV PRN (13:23)
[2017-01-08 16:00] VITALS: BP 153/80
[2017-01-08] MEDS: AMLODIPINE BESYLATE 10 MG TABLET PO SCH (16:24)
[2017-01-08 20:00] VITALS: BP 151/69
[2017-01-08 20:18] VITALS: BP 151/69
[2017-01-08] MEDS: ATORVASTATIN 10 MG TABLET PO SCH (21:13)
[2017-01-08] MEDS: DONEPEZIL 5 MG TABLET PO SCH (21:13)
[2017-01-09 06:32] LABS: BASOPHILS # (AUTO) 0.1 /CMM (0.0-0.2); BASOPHILS % (AUTO) 0.6 % (0.0-2.0); DIFF TOTAL % 100 %; EOSINOPHILS # (AUTO) 0.2 /CMM (0.0-0.7); EOSINOPHILS % (AUTO) 1.4 % (0.0-6.0); HEMATOCRIT 30 % (39-51); HEMOGLOBIN 9.7 g/dL (13.5-17.5); LYMPHOCYTES # (AUTO) 1.7 /CMM (0.8-4.8); LYMPHOCYTES % (AUTO) 12.3 % (20.0-44.0); MEAN CORPUSCULAR HEMOGLOBIN 28 PG (26.0-33.0); MEAN CORPUSCULAR HGB CONC 33 g/dl (31.0-36.0); MEAN CORPUSCULAR VOLUME 86 fL (80-96); MONOCYTES # (AUTO) 1.2 /CMM (0.1-1.30); MONOCYTES % (AUTO) 8.5 % (2.0-12.0); NEUTROPHILS # (AUTO) 10.7 /CMM (1.8-8.9); NEUTROPHILS % (AUTO) 77.2 % (43.0-81.0); PLATELET COUNT (AUTO) 232 /CMM (150-450); RED BLOOD CELL COUNT(AUTO) 3.44 MIL/uL (4.5-6.0); WHITE BLOOD COUNT (AUTO) 13.9 K/uL (4.3-11.0)
[2017-01-09 07:04] LABS: CALCIUM, SERUM 8.2 mg/dL (8.5-10.1); CREATININE 5.3 mg/dL (0.6-1.3)
[2017-01-09 07:49] VITALS: BP 152/75
[2017-01-09] MEDS: MEGESTROL ACETATE 40 MG TABLET PO SCH (08:26)
[2017-01-09] MEDS: VIT B CMPLX 3/FA/VIT C/BIOTIN 1 TAB TABLET PO SCH (08:26)
[2017-01-09] MEDS: TAMSULOSIN 0.4 MG CAP.SR.24H PO SCH (08:26)
[2017-01-09] MEDS: ASCORBIC ACID 500 MG TABLET PO SCH (08:26)
[2017-01-09] MEDS: LamoTRIgine 25 MG TABLET PO SCH (08:26)
[2017-01-09] MEDS: PANTOPRAZOLE 40 MG VIAL IV SCH (08:26)
[2017-01-09] MEDS: CITALOPRAM HYDROBROMIDE 20 MG TABLET PO SCH (08:26)
[2017-01-09] MEDS: ALLOPURINOL 100 MG TABLET PO SCH (08:26)
[2017-01-09] MEDS: SUCRALFATE 1 G/10 ML UDC PO SCH ×2 (08:26→12:17)
[2017-01-09] MEDS: ZINC SULFATE 220 MG CAPSULE PO SCH (08:26)
[2017-01-09] MEDS: PROSOURCE / PROSTAT (PYXIS) 30 ML UDC PO SCH ×2 (08:26→12:17)
[2017-01-09 08:27] VITALS: BP 152/75
[2017-01-09] MEDS: ENALAPRIL MALEATE (10 MG) 10 MG TABLET PO SCH (08:27)
[2017-01-09] MEDS: CARVEDILOL 3.125 MG TABLET PO SCH (08:27)
[2017-01-09] MEDS ORDERED: HYDROGEL DRESSING 90 GM TUBE TP SCH (09:00)
[2017-01-10] MEDS ORDERED: EPOETIN ALFA (10,000 UNIT) 10,000 UNIT/ML VIAL SQ ONE (10:30)
== END 2017-01-09 16:00 | DRG 871 ==
LOC: ER 09:58 → TELE 12:21 → MED 12-29 14:45
PROVIDERS: ADMIT Family Medicine; ATTEND Family Medicine
PROC: 5A1D60Z (ICD-10-PCS; 2016-12-29)
PROC: 0DB98ZX Excision of Duodenum, Via Natural or Artificial Opening Endoscopic, Diagnostic (ICD-10-PCS; 2016-12-30)
PROC: 0DJ08ZZ Inspection of Upper Intestinal Tract, Via Natural or Artificial Opening Endoscopic (ICD-10-PCS; principal; 2016-12-30 12:00)
DX: A41.9 Sepsis, unspecified organism (principal); G93.41 Metabolic encephalopathy; I50.33 Acute on chronic diastolic (congestive) heart failure; N18.6 End stage renal disease; R53.2 Functional quadriplegia; J18.9 Pneumonia, unspecified organism; E43 Unspecified severe protein-calorie malnutrition; G93.40 Encephalopathy, unspecified; I13.2 Hypertensive heart and chronic kidney disease with heart failure and with stage 5 chronic kidney disease, or end stage renal disease; D68.59 Other primary thrombophilia; I12.0 Hypertensive chronic kidney disease with stage 5 chronic kidney disease or end stage renal disease; N13.6 Pyonephrosis; E11.22 Type 2 diabetes mellitus with diabetic chronic kidney disease; Z99.2 Dependence on renal dialysis; R65.20 Severe sepsis without septic shock; K29.80 Duodenitis without bleeding; D63.8 Anemia in other chronic diseases classified elsewhere; E11.69 Type 2 diabetes mellitus with other specified complication; E03.9 Hypothyroidism, unspecified; E78.5 Hyperlipidemia, unspecified; G40.909 Epilepsy, unspecified, not intractable, without status epilepticus; I25.10 Atherosclerotic heart disease of native coronary artery without angina pectoris; I71.4 Abdominal aortic aneurysm, without rupture; K21.9 Gastro-esophageal reflux disease without esophagitis; Z66 Do not resuscitate; Z87.11 Personal history of peptic ulcer disease; Z86.73 Personal history of transient ischemic attack (TIA), and cerebral infarction without residual deficits; E87.5 Hyperkalemia; N30.90 Cystitis, unspecified without hematuria; N40.1 Benign prostatic hyperplasia with lower urinary tract symptoms; M10.9 Gout, unspecified; F03.90 Unspecified dementia, unspecified severity, without behavioral disturbance, psychotic disturbance, mood disturbance, and anxiety; Z68.25 Body mass index [BMI] 25.0-25.9, adult; E83.9 Disorder of mineral metabolism, unspecified; Z51.5 Encounter for palliative care; J10.1 Influenza due to other identified influenza virus with other respiratory manifestations; J40 Bronchitis, not specified as acute or chronic; N32.89 Other specified disorders of bladder
CPT/HCPCS: 36415; 36600; 71010-TC; 80048-TC; 80076-TC; 80202-TC; 81000-TC; 83605-TC; 83615-TC; 83735-TC; 84100-TC; 84484-TC; 85025-TC; 85045-TC; 85730-TC; 86850-TC; 86921-TC; 87040-TC; 87081-TC; 87086-TC; 87400; 88305-TC; 90935-TC; 92526; 92611-TC; 94799-TC; 97001-TC; A4216; A4606; A6248; A6402; A6403; C9113; J0692; J0885; J2185; J2704; J3370; J7030; J7050; J7060; P9016-BL; Z7610

== ENCOUNTER 2017-07-20 19:58 | Inpatient (IN) | payer MEDICARE, MEDICAID ==
[~2017-07-20] VITALS: Ht 175.3 cm; Wt 58.1 kg
[~2017-07-20 19:58] MED LIST changes: -BISA10SU8 RC; -BLOO-697 IN; -DOCU-270 PO; +LEVO750T21 PO; -MAGN400O6 PO; -NA P133E RC; -SENN8.6T6 PO; +SUCR1ORA2 PO; -SUCR1ORA6 GT
--- NOTE | 2017-07-20 20:15 | NUR ---
PATIENT BIB EMS FROM SNF D/T VOMITING X 2. PATIENT IS A/OX 1, BREATHING EVEN AND UNLABORED. NO SOB. DENIES ANY PROBLEMS, BUT HAS ABDOMINAL PAIN UPON PALPATION. PATIENT IS UNABLE TO PROVIDE ANY HISTORY. VITALS REMAIN STABLE. SAFETY AND COMFORT MEASURES IN PLACE. AWAITING MD ORDERS.
--- NOTE | 2017-07-20 21:38 | NUR ---
NEW IV STARTED ON RIGHT WRIST, 20 G. BLOOD DRAWN AND SENT TO LAB. PATIENT MEDICATED PER MD ORDERS.
--- NOTE | 2017-07-20 21:40 | NUR ---
BIOFUELS PRODUCTION TECHNICIAN AT BEDSIDE
--- NOTE | 2017-07-20 21:42 | NUR ---
PATIENT TAKEN TO CT VIA STRETCHER
[2017-07-20 21:46] LABS: BASOPHILS % (AUTO) 0.1 % (0.0-2.0); EOSINOPHILS # (AUTO) 0.1 /CMM (0.0-0.7); EOSINOPHILS % (AUTO) 0.5 % (0.0-6.0); HEMATOCRIT 32 % (39-51); HEMOGLOBIN 10.2 g/dL (13.5-17.5); LYMPHOCYTES # (AUTO) 1.2 /CMM (0.8-4.8); LYMPHOCYTES % (AUTO) 4.9 % (20.0-44.0); MEAN CORPUSCULAR HEMOGLOBIN 29 PG (26.0-33.0); MEAN CORPUSCULAR HGB CONC 32 g/dl (31.0-36.0); MEAN CORPUSCULAR VOLUME 92 fL (80-96); MONOCYTES # (AUTO) 0.8 /CMM (0.1-1.30); MONOCYTES % (AUTO) 3.2 % (2.0-12.0); NEUTROPHILS # (AUTO) 22.2 /CMM (1.8-8.9); NEUTROPHILS % (AUTO) 91.3 % (43.0-81.0); PLATELET COUNT (AUTO) 349 /CMM (150-450); RDW COEFFICIENT OF VARIATION 18.6 (11.5-15.0); RED BLOOD CELL COUNT(AUTO) 3.49 MIL/uL (4.5-6.0); WHITE BLOOD COUNT (AUTO) 24.3 K/uL (4.3-11.0)
--- NOTE | 2017-07-20 21:51 | NUR ---
PATIENT RETURNED FROM CT IN STABLE CONDITION.
[2017-07-20 21:54] LABS: CALCIUM, SERUM 8.5 mg/dL (8.5-10.1); CARBON DIOXIDE 32 mmol/L (21-32); CHLORIDE 103 mmol/L (98-107); CREATININE 4.2 mg/dL (0.6-1.3); GLUCOSE 121 mg/dL (74-106); POTASSIUM 4.6 mmol/L (3.5-5.1); SODIUM SERUM 145 mmol/L (136-145); UREA NITROGEN, BLOOD 46 mg/dL (7-18)
[2017-07-20 21:56] LABS: SERUM AMMONIA 12 umol/L (11-32)
--- NOTE | 2017-07-20 22:00 | NUR ---
URINE OBTAINED VIA STRAIGHT CATH PER DR. RAMOS. SAMPLE SENT TO LAB.
[2017-07-20 22:01] LABS: ALANINE AMINOTRANSFERASE 52 U/L (12-78); ALKALINE PHOSPHATASE 143 U/L (46-116); ASPARTATE AMINOTRANSFERASE 18 U/L (15-37); BILIRUBIN,DIRECT 0.1 mg/dL (0.0-0.2); BILIRUBIN,TOTAL 0.3 mg/dL (0.2-1.0); TOTAL PROTEIN, SERUM 6.3 g/dL (6.4-8.2)
[2017-07-20 22:02] LABS: TROPONIN I 0.217 ng/mL (0.00-0.056)
[2017-07-20 22:04] LABS: INR 1.06 (0.87-1.13); PROTHROMBIN TIME 11.4 SECS (9.5-12.7)
--- NOTE | 2017-07-20 22:10 | NUR ---
PATIENT TAKEN TO CT VIA STRETCHER ONCE AGAIN.
[2017-07-20 22:21] LABS: APPEARANCE,URINE CLOUDY (CLEAR); BILIRUBIN,URINE NEGATIVE (NEGATIVE); BLOOD, URINE 3+ Ery/uL (NEGATIVE); COLOR,URINE YELLOW (YELLOW); KETONES,URINE NEGATIVE (NEGATIVE); LEUKOCYTE ESTERASE ,URINE 2+ (NEGATIVE); NITRITE, URINE NEGATIVE (NEGATIVE); PH,URINE 8.5 (5.0-8.0); PROTEIN,URINE 2+ mg/dl (NEGATIVE); UGLUCOSE TRACE mg/dL (NEGATIVE); UROBILINOGEN,URINE 0.2 EU/dL (0.2)
--- NOTE | 2017-07-20 22:25 | NUR ---
PATIENT RETURNED FROM CT IN STABLE CONDITION.
[2017-07-20 22:30] LABS: RBC,URINE 21-50 /HPF (0-2); WBC,URINE 51-80 /HPF (0-3)
[2017-07-20 22:31] LABS: BACTERIA,URINE Rare /HPF (None Seen); SQUAMOUS EPITHELIAL CELL,UR Rare /HPF (None Seen)
--- NOTE | 2017-07-20 23:25 | NUR ---
REPORT GIVEN TO RNMAINE FOR ADMISSION. ROOM 322-2
[2017-07-21 00:30] VITALS: BP 146/76
--- NOTE | 2017-07-21 00:30 | NUR ---
TELE/RN NOTES NEW ADMITTED PATIENT IS A 77 YO MALE [facility] WHO HAD EPISODE OF VOMITING 2X, W/ DX BY ER MD FOR AMS. PATIENT ALERTX1, CAN RESPOND WITH NAME, W/ HX OF DEMENTIA, CVA SEIZURE, CAD, RF, ABD PAIN, UTI ELEVATED TROPONIN, CHF, HTN, BPH, GERD, HYPOTHROID, HTN , ON SINUS RHYTHM AT 93, SKIN WARM TO TOUCH, IV SITE ON R WRIST , GOWEL SOUNDS HEARD ON ALL 4 QUADRANTS, DIMINISHED LUNG SOUND IN LOWER/UPPER. INCONTINENT, SKIN CONCERNS, WITH PARTIAL THICKNESS LOSS IN THE SACRUM AND DISCOLORATION ON LEFT ARM AND HANDS,, COREY FOWLER DR ENTERED LIST OF CONTINOUS MEDS, WILL CARRYOUT ORDER.
--- NOTE | 2017-07-21 00:36 | NUR ---
pt transferred to via [facility].
[2017-07-21 04:00] VITALS: BP 152/73
--- NOTE | 2017-07-21 06:32 | NUR ---
TELE/RN CLOSING NOTES PATIENT RESTING COMFORTABLY IN BED, SLEPT ATLEAST 7 HOURS, ON OXYGEN VIA NC AT 3l, SKIN WARM TO TOUCH, SKIN CONCERNS NOTES, REQUIRE EXTENSIVE ASSISTANCE FOR ADL. WILL ENDORSE TO AM RN FOR JOSE.
[2017-07-21 07:19] LABS: BASOPHILS % (AUTO) 0.2 % (0.0-2.0); EOSINOPHILS # (AUTO) 0.1 /CMM (0.0-0.7); EOSINOPHILS % (AUTO) 0.5 % (0.0-6.0); HEMATOCRIT 29 % (39-51); HEMOGLOBIN 9.3 g/dL (13.5-17.5); LYMPHOCYTES # (AUTO) 1.3 /CMM (0.8-4.8); LYMPHOCYTES % (AUTO) 6.7 % (20.0-44.0); MEAN CORPUSCULAR HEMOGLOBIN 30 PG (26.0-33.0); MEAN CORPUSCULAR HGB CONC 32 g/dl (31.0-36.0); MEAN CORPUSCULAR VOLUME 93 fL (80-96); MONOCYTES # (AUTO) 0.4 /CMM (0.1-1.30); MONOCYTES % (AUTO) 2.1 % (2.0-12.0); NEUTROPHILS # (AUTO) 17.7 /CMM (1.8-8.9); NEUTROPHILS % (AUTO) 90.5 % (43.0-81.0); PLATELET COUNT (AUTO) 270 /CMM (150-450); RDW COEFFICIENT OF VARIATION 18.8 (11.5-15.0); RED BLOOD CELL COUNT(AUTO) 3.12 MIL/uL (4.5-6.0); WHITE BLOOD COUNT (AUTO) 19.5 K/uL (4.3-11.0)
[2017-07-21 07:33] LABS: ALANINE AMINOTRANSFERASE 39 U/L (12-78); ALBUMIN 1.6 g/dL (3.4-5.0); ALKALINE PHOSPHATASE 109 U/L (46-116); ASPARTATE AMINOTRANSFERASE 19 U/L (15-37); BILIRUBIN,TOTAL 0.3 mg/dL (0.2-1.0); CALCIUM, SERUM 7.7 mg/dL (8.5-10.1); CARBON DIOXIDE 26 mmol/L (21-32); CHLORIDE 107 mmol/L (98-107); CREATININE 3.9 mg/dL (0.6-1.3); GLUCOSE 92 mg/dL (74-106); MAGNESIUM 1.6 mg/dL (1.8-2.4); PHOSPHORUS 5.2 mg/dL (2.5-4.9); POTASSIUM 4.5 mmol/L (3.5-5.1); SODIUM SERUM 143 mmol/L (136-145); TOTAL PROTEIN, SERUM 5.4 g/dL (6.4-8.2); UREA NITROGEN, BLOOD 43 mg/dL (7-18)
--- NOTE | 2017-07-21 07:57 | NUR ---
MS/RN OPENING NOTE PATIENT RECEIVED IN BED AWAKE IN STABLE CONDITION. ALERT AND ORIENTED TIMES 1. NO SIGNS OF ACUTE DISTRESS. NO COMPLAIN OF PAIN OR DISCOMFORT. ALL NEEDS ATTENDED TO. CALL LIGHT WITHIN REACH. WILL CONTINUE TO MONITOR TO ENSURE SAFETY.
[2017-07-21 08:00] VITALS: BP 158/85
--- NOTE | 2017-07-21 11:00 | NUR ---
MS/RN SEEN BY EMILIA PATIENT SEEN BY ROBERT MELENDEZ WITH ORDERS OF NPO.
--- NOTE | 2017-07-21 11:37 | NUR ---
MS/RN SEEN BY DR LIGHT PATIENT SEEN BY DR LIGHT WITH ORDERS TO GIVE MAGNESIUM 1GM IV X 2 BAGS
--- NOTE | 2017-07-21 12:33 | NUR ---
WOUND CARE CONSULT: PT PRESENTS WITH SCARRING TO RT HEEL AND SACRUM. PT NOTED TO BE INCONTINENT AND IMMOBILE. CURRENT EDELMIRA SCORE IS 12. PT ON ROSA ISOFLEX LOW AIRLOSS BED. ALL SKIN PROTECTION MEASURES IN PLACE AND DISCUSSED WITH NURSING STAFF. WILL SEE PRN. WEBSTER IN AGREEMENT WITH PLAN OF CARE. Addendum: 07/21/17 at 1235 by NIC YATES WNDNU Amended: Links added.
[2017-07-21 16:00] VITALS: BP 152/74
--- NOTE | 2017-07-21 16:30 | NUR ---
MS/RN SEEN BY LEIDY AND CONSENT PATIENT SEEN BY LEIDY COMPUTER NETWORKER FOR DR HIEU BLACK WITH ORDER SO CT OF ABDOMEN AND PELVIS WITH CONTRAST. INFORMED CONSENT OBTAINED FOR CT ABDOMEN PELVIS WITH CONTRAST VIA PHONE BY SUJATHA SCHAEFER BROTHER WITNESSED BY PATTI CASTELLANOS.
--- NOTE | 2017-07-21 18:43 | NUR ---
MS/RN CLOSING NOTE PATIENT IN BED AWAKE IN STABLE CONDITION. ALERT AND ORIENTED TIMES 1-2. NO SINGS OF ACUTE DISTRESS. NO COMPLAIN OF PAIN OR DISCOMFORT. NPO STATUS AT THIS TIME SECONDARY TO CT OF ABDOMEN AND PELVIS WITH CONTRAST. ALL NEEDS ATTENDED TO. CALL LIGHT WITHIN REACH. WILL ENDORSE TO NEXT SHIFT FOR CONTINUITY OF CARE.
--- NOTE | 2017-07-21 19:30 | NUR ---
RN OPENING NOTES RECEIVED REPORT FROM RADHA RN. FOUND Pt AWAKE, RESTING IN BED. NO S/S OF ACUTE DISTRESS OR SOB NOTED. NO C/O PAIN AT THIS TIME. Pt IS A/OX1-2, CONFUSED, ONLY AWARE OF NAME, AND THAT HE'S IN SOME KIND OF HOSPITAL. ON TELE WITH PACEMAKER. HAS LFA AV SHUNT. IV ACCESS ON R WRIST #20G, IVF D5NS @75ML/HR. SCHEDULED FOR CT ABD/PELVIS WITH CONTRAST TOMORROW, CONSENT SIGNED BY FAMILY, WITNESSED BY 2 RN's. NPO UNTIL CLEARED BY SURGERY TEAM. SAFETY MEASURES IN PLACE. BED LOW, LOCKED, HOB ELEVATED, SIDE RAILS UP, CALL LIGHT AND BEDSIDE TABLE WITHIN REACH. WILL CONTINUE TO MONITOR Pt THROUGHOUT THE NIGHT FOR SAFETY.
[2017-07-21 20:30] VITALS: BP 165/83
--- NOTE | 2017-07-21 23:00 | NUR ---
RN NOTES Pt IS NPO STATUS. NO CLARIFICATION IF MEDS ARE OK TO BE GIVEN. CALLED EP[facility] TO GET CLARIFICATION DUE TO Pt's HIGH BLOOD PRESSURE OF 165/83.
--- NOTE | 2017-07-21 23:30 | NUR ---
RN NOTES SPOKE WITH DR. NICOLE ON THE PHONE AND INFORMED HIM OF Pt's SITUATION AND HIS NPO STATUS, AND THAT Pt HAS ABD DISTENTION & IS SCHEDULED FOR A CT OF ABD/PELVIS WITH CONTRAST TMRRW AM, AND HAS A HIGH BLOOD PRESSURE OF 165/83. COREY SAID TO KEEP Pt NPO WITH NO MEDS, BUT TO ORDER NITROBID PASTE 1GM Q6H PRN FOR SBP>160.
[2017-07-22 00:23] VITALS: BP 154/73
--- NOTE | 2017-07-22 00:31 | NUR ---
RN NOTES ENDORSED Pt's JOSE TO RNMAXIMILIANO. Pt REMAINS STABLE. Pt IS AWAKE, RESTING IN BED. NO S/S OF ACUTE DISTRESS OR SOB NOTED.
--- NOTE | 2017-07-22 00:34 | NUR ---
RN OPEN NOTES RECEIVED PATIENT AWAKE IN BED. A/O X1. NO SIGNS OF DISTRESS OR DISCOMFORT. BREATHING EVEN AND UNLABORED. ON 3LPM O2 VIA NC. ON TELE MONITORING WITH SR 98 NOTED. IV ACCESS IN R WRIST WITH CIPRO CURRENTLY INFUSING. BED IN LOW LOCKED POSITION WITH SIDE RAILS X3. CALL LIGHT WITHIN REACH. WILL CONTINUE TO MONITOR.
[2017-07-22 04:34] VITALS: BP 110/53
[2017-07-22 06:53] VITALS: BP 133/69
[2017-07-22 07:19] LABS: BASOPHILS % (AUTO) 0.1 % (0.0-2.0); EOSINOPHILS # (AUTO) 0.1 /CMM (0.0-0.7); EOSINOPHILS % (AUTO) 0.3 % (0.0-6.0); HEMATOCRIT 28 % (39-51); HEMOGLOBIN 9.1 g/dL (13.5-17.5); LYMPHOCYTES # (AUTO) 1.1 /CMM (0.8-4.8); LYMPHOCYTES % (AUTO) 5.5 % (20.0-44.0); MEAN CORPUSCULAR HEMOGLOBIN 30 PG (26.0-33.0); MEAN CORPUSCULAR HGB CONC 33 g/dl (31.0-36.0); MEAN CORPUSCULAR VOLUME 92 fL (80-96); MONOCYTES # (AUTO) 0.6 /CMM (0.1-1.30); MONOCYTES % (AUTO) 3.4 % (2.0-12.0); NEUTROPHILS # (AUTO) 17.3 /CMM (1.8-8.9); NEUTROPHILS % (AUTO) 90.7 % (43.0-81.0); PLATELET COUNT (AUTO) 302 /CMM (150-450); RDW COEFFICIENT OF VARIATION 18.2 (11.5-15.0); RED BLOOD CELL COUNT(AUTO) 3.03 MIL/uL (4.5-6.0)
--- NOTE | 2017-07-22 07:30 | NUR ---
MS/RN Patient received Patient received from night club manager. All needs attended at this time. Call light within reach, side rails X3 in upright position, will continue to monitor.
[2017-07-22 07:57] LABS: CALCIUM, SERUM 8.2 mg/dL (8.5-10.1); CARBON DIOXIDE 21 mmol/L (21-32); CHLORIDE 104 mmol/L (98-107); CREATININE 4.7 mg/dL (0.6-1.3); GLUCOSE 98 mg/dL (74-106); MAGNESIUM 2.1 mg/dL (1.8-2.4); POTASSIUM 4.9 mmol/L (3.5-5.1); SODIUM SERUM 141 mmol/L (136-145); UREA NITROGEN, BLOOD 49 mg/dL (7-18)
[2017-07-22 08:00] VITALS: BP 126/66
--- NOTE | 2017-07-22 08:12 | NUR ---
RN CLOSING NOTES PATIENT AWAKE IN BED. A/O X1. NO SIGNS OF DISTRESS OR DISCOMFORT. BREATHING EVEN AND UNLABORED. ON 3LPM O2 VIA NC. ON TELE MONITORING WITH SR 91 NOTED. IV ACCESS IN R WRIST WITH D5NS INFUSING, PATENT AND INTACT, NO SIGNS OF REDNESS OR INFILTRATION. ALL NEEDS MET. NO SIGNIFICANT CHANGES THROUGH THE NIGHT. REPOSITIONED Q2H. BED IN LOW LOCKED POSITION WITH SIDE RAILS X3. CALL LIGHT WITHIN REACH. ENDORSED TO AM SHIFT FOR JOSE.
--- NOTE | 2017-07-22 09:00 | NUR ---
MS/dietary aide Patient tolerated oral contrast, will be taken to CT scan later this morning.
[2017-07-22 10:00] LABS: IRON, SERUM 40 ug/dl (50-175); TOTAL IRON BINDING CAPACITY 84 ug/dl (250-450)
[2017-07-22 13:40] LABS: FERRITIN 1755 ng/mL (8-388)
--- NOTE | 2017-07-22 14:30 | NUR ---
MS/RN Catheter order Order given by Dr Yanes JAVA WEB ARCHITECT to insert thorpe catheter before CT scan to enable bladder to be fully deflated so that possible mass on bladder wall may be visualized more easily.
--- NOTE | 2017-07-22 14:45 | NUR ---
MS/RN Unable to insert thorpe Unable to insert thorpe catheter despite multiple attempte. Charge nurse made aware and also unsuccessful. LAWYER [employer] aware and will attempt, new supplies at bedside. LAWYER [employer] unable to insert thorpe, Dr Yanes aware and will attempt.
--- NOTE | 2017-07-22 15:30 | NUR ---
MS/crm marketing analyst Patient off floor at this time, in radiology.
[2017-07-22 16:00] VITALS: BP 161/73
--- NOTE | 2017-07-22 16:00 | NUR ---
MS/RN Coude catheter Dr Yanes at bedside, unable to insert coude catheter using urology set. Per , will contact Dr Hinds.
--- NOTE | 2017-07-22 16:45 | NUR ---
MS/RN HDX HDX started at bedside.
--- NOTE | 2017-07-22 19:15 | NUR ---
RN OPEN NOTES RECEIVED PATIENT AWAKE IN BED. A/O X1. NO SIGNS OF DISTRESS OR DISCOMFORT. BREATHING EVEN AND UNLABORED. ON 2LPM O2 VIA NC. ON TELE MONITORING WITH ST 102 NOTED. IV ACCESS IN R WRIST WITH D5NS INFUSING, PATENT AND INTACT NO SIGNS OF REDNESS OR INFILTRATION. BED IN LOW LOCKED POSITION WITH SIDE RAILS X3. CALL LIGHT WITHIN REACH. WILL CONTINUE TO MONITOR.
--- NOTE | 2017-07-22 19:49 | NUR ---
MS/RN End note HDX completed - 2l removed, blood pressure stable throughout treatment. CT scan result sent to Dr Yanes, awaiting further orders. Patient kept clean and dry, bed in low setting, side rails X3 in upright position, call light within reach. Will endorse to warehouse worker 2nd shift.
[2017-07-22 20:00] VITALS: BP 139/70
[2017-07-23] VITALS: BP 159/75
[2017-07-23 04:00] VITALS: BP 161/81
[2017-07-23 07:11] VITALS: BP 138/69
--- NOTE | 2017-07-23 07:14 | NUR ---
RN CLOSING NOTES PATIENT AWAKE IN BED. A/O X1. NO SIGNS OF DISTRESS OR DISCOMFORT. BREATHING EVEN AND UNLABORED. ON 2LPM O2 VIA NC. ON TELE MONITORING WITH SR/ST 90'S-110 NOTED. IV ACCESS IN R WRIST WITH D5NS INFUSING, PATENT AND INTACT, NO SIGNS OF REDNESS OR INFILTRATION. ALL NEEDS MET. NO SIGNIFICANT CHANGES THROUGH THE NIGHT. REPOSITIONED Q2H. PATIENT KEPT CLEAN DRY AND COMFORTABLE. BED IN LOW LOCKED POSITION WITH SIDE RAILS X3. CALL LIGHT WITHIN REACH. WILL ENDORSE TO AM SHIFT FOR JOSE.
[2017-07-23 07:32] LABS: CALCIUM, SERUM 8.1 mg/dL (8.5-10.1); CARBON DIOXIDE 25 mmol/L (21-32); CHLORIDE 102 mmol/L (98-107); CREATININE 3.9 mg/dL (0.6-1.3); GLUCOSE 99 mg/dL (74-106); POTASSIUM 4.4 mmol/L (3.5-5.1); SODIUM SERUM 140 mmol/L (136-145); UREA NITROGEN, BLOOD 31 mg/dL (7-18)
[2017-07-23 07:38] LABS: BASOPHILS % (AUTO) 0.1 % (0.0-2.0); EOSINOPHILS % (AUTO) 0.1 % (0.0-6.0); HEMATOCRIT 28 % (39-51); HEMOGLOBIN 9.1 g/dL (13.5-17.5); LYMPHOCYTES % (AUTO) 5.1 % (20.0-44.0); MEAN CORPUSCULAR HEMOGLOBIN 30 PG (26.0-33.0); MEAN CORPUSCULAR HGB CONC 32 g/dl (31.0-36.0); MEAN CORPUSCULAR VOLUME 92 fL (80-96); MONOCYTES # (AUTO) 0.7 /CMM (0.1-1.30); MONOCYTES % (AUTO) 3.5 % (2.0-12.0); NEUTROPHILS # (AUTO) 17.8 /CMM (1.8-8.9); NEUTROPHILS % (AUTO) 91.2 % (43.0-81.0); PLATELET COUNT (AUTO) 344 /CMM (150-450); RDW COEFFICIENT OF VARIATION 18.9 (11.5-15.0); RED BLOOD CELL COUNT(AUTO) 3.07 MIL/uL (4.5-6.0); WHITE BLOOD COUNT (AUTO) 19.5 K/uL (4.3-11.0)
--- NOTE | 2017-07-23 08:20 | NUR ---
ms rn received in bed, awake,oriented x1,not in any form of distress, respirations even and unlabored,no sob noted. lungs have some ronchi bilaterally,denies pain at this time,all needs attended.
--- NOTE | 2017-07-23 09:00 | NUR ---
ms rn on npo at this time, was seen by dr. tricia farfan/ orders made and carried out.
[2017-07-23 16:00] VITALS: BP 144/63
--- NOTE | 2017-07-23 18:43 | NUR ---
ms rn seen by dr. saravia, inserting thorpe catheter at this time, will endorse to overnight houseperson for [place]udson.
[2017-07-23 20:00] VITALS: BP 141/73
[2017-07-23 22:00] VITALS: BP 141/73
[2017-07-24 07:23] LABS: BASOPHILS % (AUTO) 0.1 % (0.0-2.0); EOSINOPHILS % (AUTO) 0.2 % (0.0-6.0); HEMATOCRIT 25 % (39-51); HEMOGLOBIN 8.2 g/dL (13.5-17.5); LYMPHOCYTES # (AUTO) 0.9 /CMM (0.8-4.8); MEAN CORPUSCULAR HEMOGLOBIN 30 PG (26.0-33.0); MEAN CORPUSCULAR HGB CONC 33 g/dl (31.0-36.0); MEAN CORPUSCULAR VOLUME 92 fL (80-96); MONOCYTES # (AUTO) 0.5 /CMM (0.1-1.30); MONOCYTES % (AUTO) 3.4 % (2.0-12.0); NEUTROPHILS # (AUTO) 13.1 /CMM (1.8-8.9); NEUTROPHILS % (AUTO) 90.3 % (43.0-81.0); PLATELET COUNT (AUTO) 325 /CMM (150-450); RDW COEFFICIENT OF VARIATION 18.2 (11.5-15.0); RED BLOOD CELL COUNT(AUTO) 2.75 MIL/uL (4.5-6.0); WHITE BLOOD COUNT (AUTO) 14.5 K/uL (4.3-11.0)
--- NOTE | 2017-07-24 07:30 | NUR ---
MS CASTELLANOS NOTES PATIENT START DIALYSIS TODAY Addendum: 07/24/17 at 2139 by ADIA TINEO RN ADDENDUM: THIS DOCUMENTATION IS FOR 192907/24/17
[2017-07-24 07:32] LABS: CHLORIDE 104 mmol/L (98-107); CREATININE 4.7 mg/dL (0.6-1.3); GLUCOSE 95 mg/dL (74-106); MAGNESIUM 1.8 mg/dL (1.8-2.4); PHOSPHORUS 6.7 mg/dL (2.5-4.9); POTASSIUM 4.1 mmol/L (3.5-5.1); SODIUM SERUM 142 mmol/L (136-145); UREA NITROGEN, BLOOD 34 mg/dL (7-18)
--- NOTE | 2017-07-24 07:35 | NUR ---
MS EMANUEL OPENING NOTE PATIENT IS ALERT AND ORIENTED x2-3. NO PAIN NOTED AT THIS TIME, NO FACIAL GRIMACING NOTED. NO SOB OR DISTRESS NOTED. ON 2L/MIN OF OXYGEN VIA NASAL CANNULA. MONET CATHETER IN PLACE, CLEAR YELLOW URINE. NO CLOUDY APPEARANCE NOTED. CURRENTLY NPO WILL FOLLOW UP WITH . HAS LF AV SHUNT, NO BP ON LEFT ARM. RIGHT WRIST IV INTACT AND PATENT, IV FLUIDS RUNNING AT THIS TIME D5 NS @75 ML/HR. WILL CONTINUE TO MONITOR Addendum: 07/24/17 at 1207 by SAQIB BRO RN PATIENT IS ALERT AND ORIENTED x1
[2017-07-24 07:44] LABS: CARBON DIOXIDE 22 mmol/L (21-32)
[2017-07-24 08:00] VITALS: BP 126/60
--- NOTE | 2017-07-24 08:45 | NUR ---
MS RN NOTE PER , OKAY TO PUT BACK ON RENAL DIET
--- NOTE | 2017-07-24 09:10 | NUR ---
MS RN NOTE PATIENT HAS DIALYSIS TODAY, BP IS STABLE. HELD BP MEDS
[2017-07-24 16:41] VITALS: BP 162/70
--- NOTE | 2017-07-24 18:45 | NUR ---
MS RN CLOSING NOTE PATIENT IS ALERT AND ORIENTED x1. CALL LIGHT WITHIN REACH AT ALL TIMES. SAFETY MEASURES IMPLEMENTED. NO FACIAL GRIMACING NOTED FOR PAIN. NO SOB OR DISTRESS NOTED. ON 2L/MIN OF OXYGEN VIA NASAL CANNULA. TOLERATING WELL. MONET CATHETER IN PLACE, PER UROLOGIST WILL HAVE SURGERY SURGERY ON FRIDAY. ALL DUE MEDICATIONS GIVEN ORDERED, ALL NURSING CALL NEEDS ATTENDED. TURNED AND REPOSITIONED Q2H AND NEEDED. AWAITING HEMODIALYSIS TODAY. WILL ENDORSE TO FOOD PROCESSOR NURSE FOR JOSE
--- NOTE | 2017-07-24 19:00 | NUR ---
MS RN OPENING NOTES RECEIVE PT RESTING IN BED,PT A/OX 1. NO S/S OF RESPIRATORY DISTRESS OR SOB. SAFETY MEASURES IN PLACE, ON LOW BED TO ENSURE SAFETY. CALL LIGHT WITHIN REACH. WILL CONTINUE TO MONITOR
--- NOTE | 2017-07-24 19:30 | NUR ---
MS RN NOTES PATIENT STARTED DIALYSIS
[2017-07-24 20:00] VITALS: BP 151/81
--- NOTE | 2017-07-24 21:35 | NUR ---
MS CASTELLANOS NOTES DIALYSIS IS DONE TOLERATED PROCEDURE WELL PT STABLE CONDITION VSS Addendum: 07/24/17 at 9826 by ADIA TINEO RN 2L WAS OUT
[2017-07-24 22:30] VITALS: BP 138/66
--- NOTE | 2017-07-25 06:26 | NUR ---
MS RN CLOSING NOTES PATIENT COMFORTABLY ASLEEP AND EASILY AWAKEN, HEAD OF BED ELEVATED FOR BETTER LUNG EXPANSION 02 2LPM VIA NC 02 SAT AT 97% R WRIST 20 G D5NS AT 75CC/HR RUNNING IV SITE NO S/S OF INFILTRATED, PATIENT DENIES PAIN AT THIS TIME. RESPIRATIONS EVEN AND UNLABORED. NO S/S OF ACUTE DISTRESS, NO SOB, SKIN WARM AND DRY TO TOUCH, AFEBRILE, ALL NURSING CARE NEEDS PROVIDED AND RENDERED, REPOSITIONED EVERY 2 HOURS WITH GORE INSERTER. KEPT CLEAN AND DRY AND COMFORTABLE, GOOD SKIN ARE PROVIDED. FREQUENT VISUAL CHECK DONE FOR SAFETY EVERY 2 HOURS. SAFE HAZARD FREE ENVIRONMENT PROVIDED. CALL LIGHT WITHIN EASY TO REACH, ON LOW BED AT ALL TIMES TO ENSURE SAFETY, WILL ENDORSE TO THE NEXT SHIFT CONTINUE PLAN OF CARE
--- NOTE | 2017-07-25 07:30 | NUR ---
RN NOTES RECEIVED PATIENT RESTING COMFORTABLY IN BED, ASLEEP,EASILY AROUSABLE DURING CARE. RESPIRATIONS EVEN AND UNLABORED, IN NO APPARENT PAIN OR DISCOMFORT NO FACIAL GRIMACING OR GUARDED MOVEMENT NOTED. IV ACCESS PATENT AND INTACT NO REDNESS OR INFILTRATION NOTED. BED LOCKED AND IN LOW POSITION, CALL LIGHT WITHIN EASY REACH WILL CONTINUE TO MONITOR
[2017-07-25 08:00] VITALS: BP 156/64
[2017-07-25 16:00] VITALS: BP 127/57
--- NOTE | 2017-07-25 18:31 | NUR ---
RN NOTES PATIENT RESTING COMFORTABLY IN BED, ASLEEP,EASILY AROUSABLE DURING CARE. RESPIRATIONS EVEN AND UNLABORED, IN NO APPARENT PAIN OR DISCOMFORT NO FACIAL GRIMACING OR GUARDED MOVEMENT NOTED. IV ACCESS PATENT AND INTACT NO REDNESS OR INFILTRATION NOTED. BED LOCKED AND IN LOW POSITION, CALL LIGHT WITHIN EASY REACH WILL CONTINUE TO MONITOR AND ENDORSE TO NEXT SHIFT FOR CONTINUITY OF CARE
--- NOTE | 2017-07-25 19:30 | NUR ---
MS/RN NOTES RECEIVED PT. LYING IN BED. AWAKE, ALERT AND ORIENTED X1. BREATHING EVEN AND UNLABORED ON 2LPM O2 VIA NC. NO SOB, RESPIRATORY DISTRESS OR COMPLAINTS OF PAIN NOTED AT THIS TIME. PT. WITH LEFT FOREARM AV SHUNT PRESENT AND INTACT. PT. WITH RIGHT FOREARM 22 GAUGE PERIPHERAL IV PRESENT, PATENT AND INTACT ADMINISTERING TO PT. D5 NS @ 75 ML/HR. PT. WITH MONET CATHETER PRESENT, PATENT AND INTACT. BED LOCKED AND IN LOWEST POSITION, SIDE RAILS UP X3, CALL LIGHT WITHIN REACH, WILL CONTINUE TO MONITOR.
[2017-07-25 20:00] VITALS: BP 133/65
[2017-07-26 06:18] LABS: BASOPHILS # (AUTO) 0.1 /CMM (0.0-0.2); BASOPHILS % (AUTO) 0.7 % (0.0-2.0); EOSINOPHILS # (AUTO) 0.1 /CMM (0.0-0.7); EOSINOPHILS % (AUTO) 1.5 % (0.0-6.0); HEMATOCRIT 25 % (39-51); HEMOGLOBIN 7.8 g/dL (13.5-17.5); LYMPHOCYTES # (AUTO) 1.2 /CMM (0.8-4.8); LYMPHOCYTES % (AUTO) 12.3 % (20.0-44.0); MEAN CORPUSCULAR HEMOGLOBIN 29 PG (26.0-33.0); MEAN CORPUSCULAR HGB CONC 32 g/dl (31.0-36.0); MEAN CORPUSCULAR VOLUME 92 fL (80-96); MONOCYTES # (AUTO) 0.6 /CMM (0.1-1.30); MONOCYTES % (AUTO) 5.8 % (2.0-12.0); NEUTROPHILS # (AUTO) 7.7 /CMM (1.8-8.9); NEUTROPHILS % (AUTO) 79.7 % (43.0-81.0); PLATELET COUNT (AUTO) 351 /CMM (150-450); RDW COEFFICIENT OF VARIATION 18.5 (11.5-15.0); RED BLOOD CELL COUNT(AUTO) 2.66 MIL/uL (4.5-6.0); WHITE BLOOD COUNT (AUTO) 9.7 K/uL (4.3-11.0)
--- NOTE | 2017-07-26 06:25 | NUR ---
MS/RN NOTES PT. IS LYING IN BED RESTING. BREATHING EVEN AND UNLABORED ON 2LPM O2 VIA NC. NO SOB, RESPIRATORY DISTRESS OR COMPLAINTS OF PAIN NOTED AT THIS TIME AND THROUGHOUT SHIFT. PT. WITH LEFT FOREARM AV SHUNT PRESENT AND INTACT. PT. WITH RIGHT FOREARM 22 GAUGE PERIPHERAL IV PRESENT, PATENT AND INTACT ADMINISTERING TO PT. D5 NS @ 75 ML/HR. PT. WITH MONET CATHETER PRESENT, PATENT AND INTACT DRAINING TEA COLORED URINE WITH SEDIMENT. ALL PT. NEEDS MET. PT. TURNED AND REPOSITIONED Q2H AND NEEDED. BED LOCKED AND IN LOWEST POSITION, SIDE RAILS UP X3, CALL LIGHT WITHIN REACH, WILL ENDORSE TO DAYSHIFT NURSE FOR CONTINUITY OF CARE.
[2017-07-26 08:00] VITALS: BP_SYST 113; BP_SYST 144; BP_DIAS 57; BP_DIAS 70
--- NOTE | 2017-07-26 08:03 | NUR ---
- received patient on bed , opens eyes, with continous IV infusing , thorpe cath in draining clear yellow urine.
--- NOTE | 2017-07-26 14:13 | NUR ---
- at this time, patient is receiving HD , sleeping, non-labored respirations, no pain signs noted.
[2017-07-26 15:00] VITALS: BP 140/60
[2017-07-26 16:00] VITALS: BP 138/65
--- NOTE | 2017-07-26 19:40 | NUR ---
rn initial notes: received report form beau mendez in bed, awake, a/o x1 to self only, on 2l via nc respiration even and unlabored. pt has rodrick av shunt, dressing c/d/i, pt has right fa iv acces patent and flushing well, on hl. pt has thorpe catheter in placed with purulent drainage noted, abdominal distention noted with hypoactive bowel sound noted, ble offloaded. safety precautions for fall initiated call light in reach, will continue to monitor.
[2017-07-26 20:00] VITALS: BP 136/59
--- NOTE | 2017-07-26 20:26 | NUR ---
rn notes: s/p hd today with 1100 ml output
[2017-07-26 21:20] VITALS: BP 135/48
--- NOTE | 2017-07-26 21:45 | NUR ---
RN NOTES: PLACED PT ON HIGH FOWLERS POSITION, DUE MEDS GIVEN, USED THICKENER AND ASPIRATION PRECAUTION PROTOCOL FOLLOWED, NO S/S OF CHOKING OR ASPIRATION NOTED WILL CONTINUE TO MONITOR
--- NOTE | 2017-07-26 21:51 | NUR ---
RN NOTES: CONTACTED DR HAGEN, REGARDING PT'S ORDER FOR HEPARIN 5000 UNITS SC, PT COAGS WNL, PLT WNL, HOWEVER H/H IS 7.8/25, AND H/H IS TRENDING DOWN, PER DR HAGEN TO HOLD DOSE OF HEPARIN FOR TONIGHT. WILL CONTINEU MONITORING PT FOR ANY S/S OF ACTIVE BLEEDING
--- NOTE | 2017-07-27 06:44 | NUR ---
RN CLOSING NOTES: PT IN BED, AWAKE, REMAINS A/O X1, ON 2L VIA NC RESPIRATION EVEN AND UNLABORED. RIGHT FA IV ACCESS REMAINS PATENT AND FLUSHING WELL, ON HL. MONET CATHETER REMAINS IN PLACED, BAG WAS EMPTIED BY JOURNEYMAN PIPE WELDER. BLE KEPT OFFLOADED. NO ASPIRATION NOTED. ABDOMEN REMAINS DISTENDED. DIANE AV SHUNT IN PLACED, DRESSING C/D/I. VS REMAINS STABLE, NEEDS ATTENDED. STILL AWAITING FOR SCHEDULE FOR CYSTOGRAM/CYSTOSCOPY. NO ACTIVE BLEEDING NOTED. SAFETY PRECAUTIONS FOR FALL REMAINS ENGAGED, CALL LIGHT IN REACH, WILL ENDORSE TO DAY RN FOR JOSE.
[2017-07-27 08:00] VITALS: BP 133/78
[2017-07-27 08:30] LABS: BASOPHILS # (AUTO) 0.1 /CMM (0.0-0.2); BASOPHILS % (AUTO) 0.8 % (0.0-2.0); EOSINOPHILS # (AUTO) 0.1 /CMM (0.0-0.7); HEMATOCRIT 27 % (39-51); HEMOGLOBIN 8.7 g/dL (13.5-17.5); LYMPHOCYTES # (AUTO) 1.2 /CMM (0.8-4.8); MEAN CORPUSCULAR HEMOGLOBIN 29 PG (26.0-33.0); MEAN CORPUSCULAR HGB CONC 32 g/dl (31.0-36.0); MEAN CORPUSCULAR VOLUME 93 fL (80-96); MONOCYTES # (AUTO) 0.5 /CMM (0.1-1.30); MONOCYTES % (AUTO) 4.4 % (2.0-12.0); NEUTROPHILS # (AUTO) 10.2 /CMM (1.8-8.9); NEUTROPHILS % (AUTO) 83.8 % (43.0-81.0); PLATELET COUNT (AUTO) 377 /CMM (150-450); RDW COEFFICIENT OF VARIATION 18.4 (11.5-15.0); RED BLOOD CELL COUNT(AUTO) 2.97 MIL/uL (4.5-6.0); WHITE BLOOD COUNT (AUTO) 12.2 K/uL (4.3-11.0)
[2017-07-27 08:34] LABS: CALCIUM, SERUM 7.9 mg/dL (8.5-10.1); CARBON DIOXIDE 26 mmol/L (21-32); CHLORIDE 103 mmol/L (98-107); CREATININE 3.6 mg/dL (0.6-1.3); GLUCOSE 98 mg/dL (74-106); POTASSIUM 3.3 mmol/L (3.5-5.1); SODIUM SERUM 138 mmol/L (136-145); UREA NITROGEN, BLOOD 29 mg/dL (7-18)
[2017-07-27 16:00] VITALS: BP 146/65
--- NOTE | 2017-07-27 16:45 | NUR ---
METRONIDAZOLE 500MG IV ADMINISTERED LATE, WAS INFORMED ONLY AT THIS TIME TO INFUSE, CHARGE NURSE IS AWARE.
--- NOTE | 2017-07-27 19:45 | NUR ---
MS IZZY INITIAL NOTES RECEIVED REPORT FROM AM NURSE WHILE CHECKING THE PT AT THE SAME TIME, PT IS AWAKE AND ALERT , NOT IN ANY SIGNS OF ANY ACUTE DISTRESS NOTED. ON SITTING POSITION AT THIS TIME WITH 02 AT 2 LITERS VIA NC. NO SOB NOTED. SKIN WARM AND DRY TO TOUCH. WITH HEPLOCK ON HIS RIGHT FOREARM PATENT AND INTACT. MONET TO GRAVITY WITH CLEAR YELLOW OUTPUT NOTED. KEPT HIM WARM AND COMFORTABLE AT ALL TIMES. BED ALARM SET AND LOW AND LOCK IN POSITION, SIDE RAILS X2 UP. WILL CONTINUE MONITORING FOR SAFETY.
[2017-07-27 20:37] VITALS: BP 131/62
--- NOTE | 2017-07-27 23:00 | NUR ---
VECTOR CONTROL ASSISTANT/NOTES CALLED THE BROTHER OF THE PATIENT SUJATHA SCHAEFER AT FOR THE CONSENT FOR CYSTOSCOPY . SPOKE TO PT SISTER IN-[place] MARY ELLEN SCHAEFER INSTEAD.
[2017-07-28] VITALS (12 sets, daily range): BP systolic 124–159; BP diastolic 60–79
--- NOTE | 2017-07-28 05:22 | NUR ---
OIL TANKER CAPTAIN/NOTES PER DR JANN BLACK NEEDS TO GET CONSENT FROM PT SON TO GET CONSENT FOR ANY PROCEDURE NEEDS TO BE DONE. CALLED SON RYAN SCHAEFER AT AND LEFT A MESSAGED. WAITING FOR RESPONSE.
[2017-07-28 06:19] LABS: BASOPHILS % (AUTO) 0.3 % (0.0-2.0); EOSINOPHILS # (AUTO) 0.1 /CMM (0.0-0.7); EOSINOPHILS % (AUTO) 0.8 % (0.0-6.0); HEMATOCRIT 30 % (39-51); HEMOGLOBIN 9.6 g/dL (13.5-17.5); LYMPHOCYTES # (AUTO) 1.4 /CMM (0.8-4.8); LYMPHOCYTES % (AUTO) 10.2 % (20.0-44.0); MEAN CORPUSCULAR HEMOGLOBIN 30 PG (26.0-33.0); MEAN CORPUSCULAR HGB CONC 33 g/dl (31.0-36.0); MEAN CORPUSCULAR VOLUME 92 fL (80-96); MONOCYTES # (AUTO) 0.4 /CMM (0.1-1.30); MONOCYTES % (AUTO) 2.7 % (2.0-12.0); NEUTROPHILS # (AUTO) 12.1 /CMM (1.8-8.9); PLATELET COUNT (AUTO) 381 /CMM (150-450); RDW COEFFICIENT OF VARIATION 18.4 (11.5-15.0); RED BLOOD CELL COUNT(AUTO) 3.22 MIL/uL (4.5-6.0); WHITE BLOOD COUNT (AUTO) 14.1 K/uL (4.3-11.0)
[2017-07-28 06:35] LABS: CARBON DIOXIDE 21 mmol/L (21-32); CHLORIDE 103 mmol/L (98-107); CREATININE 3.9 mg/dL (0.6-1.3); GLUCOSE 110 mg/dL (74-106); MAGNESIUM 1.6 mg/dL (1.8-2.4); PHOSPHORUS 5.3 mg/dL (2.5-4.9); POTASSIUM 3.1 mmol/L (3.5-5.1); SODIUM SERUM 137 mmol/L (136-145); UREA NITROGEN, BLOOD 37 mg/dL (7-18)
--- NOTE | 2017-07-28 08:00 | NUR ---
MS BRIDGE PAINTER CLOSING NOTES PT SON CALLED BACK AND TOLD TO AM NURSE JULIUS /EMANUEL , HE'S NOT THE ONE THAT GIVING CONSENT AND ITS SHOULD BE THE BROTHER SUJATHA. SPOKE TO MR DEBRA SCHAEFER AND AGREED TELEPHONE CONSENT FOR CYSTOSCOPY ,ANESTHESIA AND BLOOD TRANSFUSION . EMANUEL MADRID AND ME SIGNED THE TELEPHONE CONSENT IN BEHALF OF MR SUJATHA SCHAEFER.
--- NOTE | 2017-07-28 08:00 | NUR ---
MS RN NOTES PATIENT IN BED RESTING NO SOB OR ACUTE DISTRESS NOTED. PATIENT ALERT, ORIENTED X1. BED IN LOW LOCKED POSITION, CALL LIGHT WITHIN REACH. PERIPHERAL IV INTACT PATENT WILL CONTINUE TO MONITOR.
--- NOTE | 2017-07-28 12:00 | NUR ---
MS RN NOTES PATIENT RETURNED FROM OR S/P CYSTOSCOPE IN STABLE CONDITION, NO SOB OR ACUTE DISTRESS NOTED. WILL CONTINUE TO MONITOR. MONET INTACT PATENT.
--- NOTE | 2017-07-28 12:15 | NUR ---
MS RN NOTES PATIENT RECEIVING DIALYSIS, TOLERATING WELL. CLARIFIED ORDERS WITH DR. PROCTOR FOR POTASSIUM, SINCE PATIENT RECEIVING DIALYSIS, DIALYSIS NURSE TO CORRECT POTASSIUM WITH DIALYSIS,OBTAINED ORDERS FROM DR. PROCTOR TO CANCELL IV POTASSIUM, NOTED AND CARRIED OUT.
--- NOTE | 2017-07-28 18:05 | NUR ---
MS RN NOTES PATIENT IN BED RESTING NO SOB OR ACUTE DISTRESS NOTED. PATIENT AWAKE, ORIENTED X1, IN STABLE CONDITION. RESPONDS VERBALLY. ALL DUE MEDICATIONS ADMINISTERED, ALL NEEDS MET. BED IN LOW LOCKED POSITION. CALL LIGHT WITHIN REACH WILL ENDORSE JOSE TO PM SHIFT.
--- NOTE | 2017-07-28 20:00 | NUR ---
MS IZZY INITIAL NOTES RECEIVED REPORT FROM AM NURSE AIDA MADRID SEEN IN BED ON SEMI FOWLERS POSITION , RESPIRATION EVEN AND NON-LABORED, MONET TO GRAVITY. SKIN WARM AND DRY TO TOUCH. OFFLOAD BILATERAL HEELS ON PILLOWS. EDEMA SUBSIDE ON BOTH FOOT. KEPT HIM WARM AND COMFORTABLE AT ALL TIMES. SIDE RAILS X2 UP AND BED IN LOW AND LOCK IN POSITION. PLACE CALL LIGHT AT REACH. WILL CONTINUE MONITORING.
--- NOTE | 2017-07-29 | NUR ---
PSYCHIATRIC AIDE INSTRUCTOR/NOTES PT SLEEPING COMFORTABLY IN BED WITHOUT ANY ACUTE DISTRESS NOTED. KEPT HIM WARM AND COMFORTABLE AT ALL TIMES. WILL CONTINUE TO MONITOR.
[2017-07-29 06:27] LABS: BASOPHILS # (AUTO) 0.1 /CMM (0.0-0.2); BASOPHILS % (AUTO) 0.4 % (0.0-2.0); HEMATOCRIT 27 % (39-51); HEMOGLOBIN 8.8 g/dL (13.5-17.5); LYMPHOCYTES # (AUTO) 1.2 /CMM (0.8-4.8); MEAN CORPUSCULAR HEMOGLOBIN 30 PG (26.0-33.0); MEAN CORPUSCULAR HGB CONC 33 g/dl (31.0-36.0); MEAN CORPUSCULAR VOLUME 91 fL (80-96); MONOCYTES # (AUTO) 0.2 /CMM (0.1-1.30); MONOCYTES % (AUTO) 1.7 % (2.0-12.0); NEUTROPHILS # (AUTO) 11.8 /CMM (1.8-8.9); NEUTROPHILS % (AUTO) 88.9 % (43.0-81.0); PLATELET COUNT (AUTO) 351 /CMM (150-450); RDW COEFFICIENT OF VARIATION 17.8 (11.5-15.0); RED BLOOD CELL COUNT(AUTO) 2.96 MIL/uL (4.5-6.0); WHITE BLOOD COUNT (AUTO) 13.3 K/uL (4.3-11.0)
[2017-07-29 06:56] LABS: CARBON DIOXIDE 26 mmol/L (21-32); CHLORIDE 100 mmol/L (98-107); GLUCOSE 113 mg/dL (74-106); MAGNESIUM 2.1 mg/dL (1.8-2.4); PHOSPHORUS 5.1 mg/dL (2.5-4.9); POTASSIUM 3.9 mmol/L (3.5-5.1); SODIUM SERUM 137 mmol/L (136-145); UREA NITROGEN, BLOOD 25 mg/dL (7-18)
--- NOTE | 2017-07-29 07:48 | NUR ---
SPORTS ADMINISTRATOR/CLOSING NOTES PT BACK TO SLEEP AFTER MORNING CARE DONE. STABLE TOR THE NIGHT AND SLEPT WELL. ALL DUE MEDS GIVEN AND ALL NEEDS MET. REPOSITION HIM FOR COMFORT. MONET TO GRAVITY. ENDORSE TO AM NURSE.
--- NOTE | 2017-07-29 07:49 | NUR ---
RN OPENING NOTES RECEIVED PATIENT IN BED, ALERT AND ORIENTED X . NO ACUTE DISTRESS, NO SOB NOTED. DENIES PAIN AND DISCOMFORT AT THE MOMENT. IV SITE INTACT AND PATENT. SAFETY MEASURES INITIATED. BED IN LOCKED, LOW POSITION, SIDERAILS UP X2, CALL LIGHT IN REACH. WILL CONTINUE TO MONITOR ACCORDINGLY. Addendum: 07/29/17 at 0805 by JAMEL ALDANA PATIENT ALERT AND ORIENTED X 1, CONFUSED. MONET IN PLACE, DRAINING CLEAR YELLOW URINE.
[2017-07-29 08:00] VITALS: BP 127/75
[2017-07-29 16:00] VITALS: BP 125/60
--- NOTE | 2017-07-29 19:25 | NUR ---
RN NOTES NO CHANGE OF PATIENT'S CONDITION. NO ACUTE DISTRESS, NO SOB. ALL NEEDS ATTENDED AND PROVIDED. KEPT PATIENT SAFE AND COMFORTABLE. BED IN LOCKED LOW POSITION, SIDERAILS UPX2, CALL LIGHT IN REACH. ENDORSED TO AFTER SCHOOL PROGRAM ASSISTANT RN FOR JOSE.
--- NOTE | 2017-07-29 19:58 | NUR ---
MS GROCERY STORE BAGGER INITIAL NOTES CHECKED PT AND SEEN IN LYING IN BED ON ISOFLEX BED WITH DVT PUMP ON BOTH BILATERAL LOWER LEGS. RESTING WITH EYES CLOSED BUT AROUSES TO TOUCH, BREATHING EVEN AND NON-LABORED , NOT IN ANY ACUTE DISTRESS NOTED. SKIN WARM AND DRY TO TOUCH, MONET TO GRAVITY. KEPT HIM WARM AND COMFORTABLE AT ALL TIMES. PLACE CALL LIGHT AT REACH. WILL CONTINUE TO MONITOR.
[2017-07-29 20:00] VITALS: BP 129/67
--- NOTE | 2017-07-29 21:00 | NUR ---
DIRECT SERVICE WORKER/NOTES- SON JON CALLED AND LET US KNOW THAT ITS OK TO GIVE INFORMATION TO HIS MOM, EX- OF THE PATIENT EVEN HE KNOWS THAT THE EX NOT ON THE LIST OF IMMEDIATE EMT PARAMEDIC. HE ALSO ALLOWED TO LET THE EX- TO GIVE CONSENT IF THEY NEED TO DO SOME PROCEDURE. CHARGE NURSE AWARE .
--- NOTE | 2017-07-30 | NUR ---
PROGRAM DIRECTOR/MUSIC DIRECTOR/NOTES PT SLEEPING COMFORTABLY IN BED WITHOUT ANY ACUTE DISTRESS NOTED, WILL CONTINUE TO MONITOR.
--- NOTE | 2017-07-30 07:00 | NUR ---
INDUSTRIAL MAINTENANCE TECH CLOSING NOTES PT RESTING AFTER MORNING CARE DONE , STABLE AND SLEPT WELL TOR THE NIGHT. ALL DUE MEDS GIVEN , MONET DRAINING WELL. KEPT HIM WARM AND COMFORTABLE AT ALL TIMES. BED ALARM SET AND KEPT PT ON SMEI FOWLERS POSITION FOR ASPIRATION PRECAUTION. ENDORSE TO AM NURSE FOR CONTINUITY OF CARE. PLACE CALL LIGHT AT REACH.
[2017-07-30 08:00] VITALS: BP 137/77
--- NOTE | 2017-07-30 08:14 | NUR ---
RN NOTES RECEIVED PT. PT IS STABLE AND SLEEPING IN BED. A/OX2. PT IS SLEEPING IN BED, NO S/S OF DISTRESS OR SOB. PT DOES NOT APPEAR TO BE IN PAIN. FC PATENT. PT IS ON 02 2L/MIN VIA NC. PT RECEIVED DIALYSIS ON 07/29/17. IV ACCESS LOCATED ON RIGHT HAND SL, 22G. AV SHUNT LOCATED ON LEFT FOREARM. SAFETY MEASURES IN PLACE, CALL LIGHT WITHIN REACH. WILL CONTINUE TO MONITOR.
[2017-07-30 08:51] VITALS: BP 137/77
[2017-07-30 10:15] LABS: BASOPHILS # (AUTO) 0.1 /CMM (0.0-0.2); BASOPHILS % (AUTO) 1.1 % (0.0-2.0); EOSINOPHILS # (AUTO) 0.1 /CMM (0.0-0.7); EOSINOPHILS % (AUTO) 0.6 % (0.0-6.0); HEMATOCRIT 28 % (39-51); HEMOGLOBIN 9.3 g/dL (13.5-17.5); LYMPHOCYTES # (AUTO) 1.3 /CMM (0.8-4.8); LYMPHOCYTES % (AUTO) 11.6 % (20.0-44.0); MEAN CORPUSCULAR HEMOGLOBIN 30 PG (26.0-33.0); MEAN CORPUSCULAR HGB CONC 33 g/dl (31.0-36.0); MEAN CORPUSCULAR VOLUME 92 fL (80-96); MONOCYTES # (AUTO) 0.5 /CMM (0.1-1.30); MONOCYTES % (AUTO) 4.7 % (2.0-12.0); NEUTROPHILS # (AUTO) 9.4 /CMM (1.8-8.9); PLATELET COUNT (AUTO) 350 /CMM (150-450); RDW COEFFICIENT OF VARIATION 18.3 (11.5-15.0); RED BLOOD CELL COUNT(AUTO) 3.09 MIL/uL (4.5-6.0); WHITE BLOOD COUNT (AUTO) 11.5 K/uL (4.3-11.0)
[2017-07-30 10:25] LABS: CALCIUM, SERUM 8.1 mg/dL (8.5-10.1); CARBON DIOXIDE 25 mmol/L (21-32); CHLORIDE 101 mmol/L (98-107); CREATININE 3.8 mg/dL (0.6-1.3); GLUCOSE 111 mg/dL (74-106); POTASSIUM 3.5 mmol/L (3.5-5.1); SODIUM SERUM 137 mmol/L (136-145); UREA NITROGEN, BLOOD 33 mg/dL (7-18)
[2017-07-30] MEDS ORDERED: CEFT1VIA15 IV (10:48)
[2017-07-30] MEDS ORDERED: METR500T PO (10:48)
[2017-07-30] MEDS ORDERED: CIPR250T4 PO (10:48)
--- NOTE | 2017-07-30 16:08 | NUR ---
DISCHARGE NOTE PT DISCHARGED TO [facility]. REPORT GIVEN TO NURSING BOOK PUBLISHER. PT IS IN STABLE CONDITION. VSS, NO S/S OF DISTRESS OR SOB. PT HAS NO C/O PAIN AT THIS TIME. SON, JON, CONTACTED AND NOTIFIED REGARDING D/C. ALL DISCHARGE PAPERWORK SIGNED AND COPIED. EXITCARE GIVEN TO TRANSPORT AND COPIED. WOUND PICTURES TAKEN PRIOR TO D/C. DID NOT D/C [facility] PER MD REQUEST AND DID NOT REMOVE IV ACCESS PER FACILITY REQUEST. PT LEFT HOSPITAL VIA GURNEY WITH PAR[facility]ED[facility] VIA AMBULANCE.
== END 2017-07-30 16:00 | DRG 871 ==
LOC: ER 20:03 → MEDSG2 21:51 → TELE 23:15 → MED 07-21 09:50 → TELE 07-21 11:56 → MED 07-23 08:22
PROVIDERS: ADMIT Internal Medicine; ATTEND Internal Medicine
PROC: 5A1D70Z Performance of Urinary Filtration, Intermittent, Less than 6 Hours Per Day (ICD-10-PCS; 2017-07-22)
PROC: 0TJB8ZZ Inspection of Bladder, Via Natural or Artificial Opening Endoscopic (ICD-10-PCS; principal; 2017-07-28 10:30)
DX: A41.9 Sepsis, unspecified organism (principal); I21.4 Non-ST elevation (NSTEMI) myocardial infarction; J69.0 Pneumonitis due to inhalation of food and vomit; E43 Unspecified severe protein-calorie malnutrition; G93.40 Encephalopathy, unspecified; I13.2 Hypertensive heart and chronic kidney disease with heart failure and with stage 5 chronic kidney disease, or end stage renal disease; D68.59 Other primary thrombophilia; E11.22 Type 2 diabetes mellitus with diabetic chronic kidney disease; I50.33 Acute on chronic diastolic (congestive) heart failure; N18.6 End stage renal disease; R53.2 Functional quadriplegia; I50.32 Chronic diastolic (congestive) heart failure; N39.0 Urinary tract infection, site not specified; N13.6 Pyonephrosis; L02.211 Cutaneous abscess of abdominal wall; J44.0 Chronic obstructive pulmonary disease with (acute) lower respiratory infection; Z68.1 Body mass index [BMI] 19.9 or less, adult; N13.9 Obstructive and reflux uropathy, unspecified; E83.42 Hypomagnesemia; D63.1 Anemia in chronic kidney disease; G40.909 Epilepsy, unspecified, not intractable, without status epilepticus; R65.20 Severe sepsis without septic shock; E03.9 Hypothyroidism, unspecified; E78.5 Hyperlipidemia, unspecified; I25.10 Atherosclerotic heart disease of native coronary artery without angina pectoris; F31.9 Bipolar disorder, unspecified; I25.2 Old myocardial infarction; E88.09 Other disorders of plasma-protein metabolism, not elsewhere classified; F01.50 Vascular dementia, unspecified severity, without behavioral disturbance, psychotic disturbance, mood disturbance, and anxiety; Z86.73 Personal history of transient ischemic attack (TIA), and cerebral infarction without residual deficits; Z88.0 Allergy status to penicillin; Z99.2 Dependence on renal dialysis; I71.4 Abdominal aortic aneurysm, without rupture; E83.9 Disorder of mineral metabolism, unspecified; N32.89 Other specified disorders of bladder; Z66 Do not resuscitate; N32.3 Diverticulum of bladder; K21.9 Gastro-esophageal reflux disease without esophagitis; M10.9 Gout, unspecified; N40.1 Benign prostatic hyperplasia with lower urinary tract symptoms; E87.6 Hypokalemia
CPT/HCPCS: 36415; 70450-TC; 71010-TC; 74000-TC; 74178; 80048-TC; 80053-TC; 80076-TC; 81000-TC; 82140-TC; 82728-TC; 83540-TC; 83605-TC; 83735-TC; 84100-TC; 84443-TC; 84484-TC; 85025-TC; 85730-TC; 87040-TC; 87081-TC; 87086-TC; 90935-TC; 93307-TC; A4216; A4217; A9698; C9113; J0696; J0744; J1100; J1644; J1650; J2270; J2405; J2704; J3475; J3490; J7030; J7042; J7050; J7060; Q9963; Q9967

== ENCOUNTER 2017-09-24 15:47 | Inpatient (IN) | payer MEDICARE, MEDICAID ==
[~2017-09-24] VITALS: Ht 165.1 cm; Wt 61.7 kg
[~2017-09-24 15:47] MED LIST changes: +CEFT1VIA15 IV; +CIPR250T4 PO; -LEVO750T21 PO; +METR500T PO
--- NOTE | 2017-09-24 15:50 | NUR ---
PT BIB EMS FROM [facility] DT ABNORMAL LABS; PT OPENS EYES AND WITHDRAWS TO PAIN. BUE/BLE CONTRACTED.AFEBRILE. VSS
[2017-09-24] MEDS ORDERED: IV NS 0.9% 1,000 ML BAG IV ONE ×3 (16:30→17:00)
[2017-09-24 16:33] LABS: BASOPHILS # (AUTO) 0.1 /CMM (0.0-0.2); BASOPHILS % (AUTO) 0.4 % (0.0-2.0); EOSINOPHILS # (AUTO) 0.2 /CMM (0.0-0.7); EOSINOPHILS % (AUTO) 0.8 % (0.0-6.0); LYMPHOCYTES # (AUTO) 1.8 /CMM (0.8-4.8); LYMPHOCYTES % (AUTO) 8.6 % (20.0-44.0); MEAN CORPUSCULAR HEMOGLOBIN 30 PG (26.0-33.0); MEAN CORPUSCULAR HGB CONC 34 g/dl (31.0-36.0); MEAN CORPUSCULAR VOLUME 86 fL (80-96); MONOCYTES # (AUTO) 1.2 /CMM (0.1-1.30); MONOCYTES % (AUTO) 5.8 % (2.0-12.0); NEUTROPHILS # (AUTO) 17.2 /CMM (1.8-8.9); NEUTROPHILS % (AUTO) 84.4 % (43.0-81.0); PLATELET COUNT (AUTO) 354 /CMM (150-450); RDW COEFFICIENT OF VARIATION 16.9 (11.5-15.0); RED BLOOD CELL COUNT(AUTO) 2.14 MIL/uL (4.5-6.0); WHITE BLOOD COUNT (AUTO) 20.5 K/uL (4.3-11.0)
[2017-09-24 16:36] LABS: HEMATOCRIT 18 % (39-51); HEMOGLOBIN 6.3 g/dL (13.5-17.5)
[2017-09-24 16:39] LABS: APPEARANCE,URINE Slightly Cloudy (CLEAR); BILIRUBIN,URINE Negative (NEGATIVE); BLOOD, URINE Moderate Ery/uL (NEGATIVE); COLOR,URINE Yellow (YELLOW); KETONES,URINE Negative (NEGATIVE); LEUKOCYTE ESTERASE ,URINE Moderate (NEGATIVE); NITRITE, URINE Negative (NEGATIVE); PROTEIN,URINE >=300 mg/dl (NEGATIVE); UGLUCOSE Negative (NEGATIVE); UROBILINOGEN,URINE 0.2 EU/dL (0.2)
[2017-09-24 16:42] LABS: PH,URINE >8.5 (5.0-8.0)
[2017-09-24 16:45] LABS: CALCIUM, SERUM 9.3 mg/dL (8.5-10.1); CARBON DIOXIDE 31 mmol/L (21-32); CHLORIDE 101 mmol/L (98-107); GLUCOSE 112 mg/dL (74-106); POTASSIUM 4.1 mmol/L (3.5-5.1); SODIUM SERUM 139 mmol/L (136-145); UREA NITROGEN, BLOOD 46 mg/dL (7-18)
[2017-09-24 16:49] LABS: BACTERIA,URINE None seen /HPF (None Seen); INR 1.4 (0.87-1.13); PROTHROMBIN TIME 14.6 SECS (9.5-12.7); RBC,URINE 51-80 /HPF (0-2); SQUAMOUS EPITHELIAL CELL,UR Few /HPF (None Seen); WBC,URINE 21-50 /HPF (0-3)
[2017-09-24 16:50] LABS: ALANINE AMINOTRANSFERASE 74 U/L (12-78); ALKALINE PHOSPHATASE 94 U/L (46-116); ASPARTATE AMINOTRANSFERASE 50 U/L (15-37); BILIRUBIN,DIRECT 0.1 mg/dL (0.0-0.2); BILIRUBIN,TOTAL 0.3 mg/dL (0.2-1.0); TOTAL PROTEIN, SERUM 5.9 g/dL (6.4-8.2)
[2017-09-24 16:53] LABS: TROPONIN I 0.062 ng/mL (0.00-0.056)
[2017-09-24] MEDS ORDERED: CEFEPIME 1 GM in IV D5W 50 ML IV ONE (17:00)
[2017-09-24] MEDS ORDERED: SUCR1ORA2 PO (17:33)
[2017-09-24] MEDS ORDERED: DOCU-25 PO (17:33)
[2017-09-24] MEDS ORDERED: MAGN400O6 PO (17:33)
[2017-09-24] MEDS ORDERED: CARV3.122 PO (17:33)
[2017-09-24] MEDS ORDERED: CRAN450C PO (17:33)
[2017-09-24] MEDS ORDERED: BLOO-668 IN (17:33)
[2017-09-24] MEDS ORDERED: NA P133E RC (17:33)
[2017-09-24] MEDS ORDERED: TAMS-12 PO (17:33)
[2017-09-24] MEDS ORDERED: MEGE400O PO (17:33)
[2017-09-24] MEDS ORDERED: FOLI1TAB16 PO (17:33)
[2017-09-24] MEDS ORDERED: FERR-58 PO (17:33)
[2017-09-24] MEDS ORDERED: NUT.237L67 PO (17:33)
[2017-09-24] MEDS ORDERED: BISA10SU8 RC (17:33)
--- NOTE | 2017-09-24 17:36 | NUR ---
112-2 TELE - NURSE DELFINA
--- NOTE | 2017-09-24 17:44 | NUR ---
PAGED SHAHANA SAL FOR PANEL
[2017-09-24 17:57] LABS: NEUTROPHILS % (MANUAL) 80 (42-76)
[2017-09-24 17:58] LABS: BAND % (MANUAL) 1 % (0.0-5.0); LYMPHOCYTES % (MANUAL) 13 % (16-48)
[2017-09-24 17:59] LABS: MONOCYTES % (MANUAL) 6 % (0-11.0)
--- NOTE | 2017-09-24 18:18 | NUR ---
PAGED DORON FOR PANEL AGAIN
--- NOTE | 2017-09-24 18:53 | NUR ---
REPORT GIVEN TO EMANUEL MATHIS
--- NOTE | 2017-09-24 18:55 | NUR ---
REPORT GIVEN TO EMANUEL QUINONES , PATIENT HAS NOT ARRIVED TO UNIT YET .
[2017-09-24] MEDS ORDERED: ONDANSETRON HCL/PF 4 MG/2 ML VIAL IVP PRN (19:00)
--- NOTE | 2017-09-24 19:19 | NUR ---
PT TRANSPORTED TO [facility]
[2017-09-24] MEDS ORDERED: FEE PK DOSING 1 MIN EA MC ONE (19:20)
[2017-09-24 20:00] VITALS: BP_SYST 150; BP_DIAS 60; BP_DIAS 64
[2017-09-24] MEDS ORDERED: VANCOMYCIN 1 GM in IV D5W 250 ML IV ONE (20:00)
--- NOTE | 2017-09-24 20:00 | NUR ---
WAREHOUSE SELECTOR NOTES, RECEIVED PATIENT FROM ER VIA [facility], UNDER THE MEDICAL CARE OF DR DORON ADDISON, ALERT WITH EYES OPEN RESPONSIVE TO VERBAL STIMULI, BREATHING EVEN AND UNLABORED WITH 02 95 @ 2LPM VIA [place], NO S/S OF ANY CAUTE DISTRESS OR SOB NOTED AT THIS TIME, PATIENT WITH ORDER TO ADMINISTER ONE UNIT OF BLOOD DUE TO HG 6.3, WILL GGET CONSENT AND CARRY OUT ORDER, VS 98.7, 83, 20, 100%, 116/65, 0/5, ABDOMEN SOFT AND NON DISTENDED WITH POSITIVE BOWEL SOUNDS UPON ASCULTATION, WITH F/C IN PLACE DRAINING BY GRAVITY YELLOW COLOR URINE, NO SEDIMENTATION OR HEMATURIA NOTED, SKIN DRY, AFEBRILE AND INTACT, WITH MULTIPLE DISCOLORATIONS NOTED, SACRAL P.SORE, LETF HIP P.SORE, LEFT MALLEOULOUS DTI, AND LEFT LATERAL FOOT DTI, WITH RIGHT RIGHT FA SALINE LOCK, PATENT AND INTACT, NOTED WITH RIGHT ARN AND FOOD EDEMATOUS MORE THE LEFT FOOT AND ARM, KETP RIGHT ARM ELEVATED AT ALL TIMES. BED BATH PROVIDED UPON ADMISSION, KEPT DRY AND CLEAN, BED IN LOCKED AND LOWETS POSITIOB, CALL LIGHT WITHIN REACH. WILL CONTINUE TO MONITOR CLOSELY.
--- NOTE | 2017-09-24 20:14 | NUR ---
RN NOTES, CALLED PATIENT'S BROTHER PERSON TO NOTIFY TO ACQUIRED CONSENT FOR BLOOD TRANSFUSION, UNABLE TO REACH. CALLED SON SILVANO WEBB AND OBTAINED VERBAL CONSENT VIA TELEPHONE. CONSENT OBTAINED AND VERIFIED BY TWO NURSES.
[2017-09-24] MEDS: ENOXAPARIN SODIUM 40 MG/0.4 ML DISP.SYRIN SQ SCH (21:00)
--- NOTE | 2017-09-24 21:10 | NUR ---
RN NOTES, AFTER PICK BLOOD UP FROM LAB, VS OF PATIENT TAKEN AGAIN AND NOTED WITH BLOOD PRESSURE OF 164/59, P99, RR 18. INFORMED ANISA CLEANING ABOUT THE PATIENT'S BLOOD PRESSURE AND ASK IF HE WANTED TO CONTINUE WITH BLOOD ADMINISTRATION AND HE REPLIED WITH ORDER TO GO AHEAD AND ADMINISTER BLOOD, ORDER NOTED AND CARRIED OUT. WILL CONTINUE TO MONITOR CLOSELY. PATIENT ALERT AND RESPONSIVE TO VERBAL STIMULI, BREATHING EVEN AND UNLABORED NO S/S OF ACUTE DISTRESS NOTED OR SOB. AFEBRILE AT THIS TIME.
[2017-09-24 21:16] VITALS: BP 164/59
[2017-09-24 21:30] VITALS: BP 170/79
[2017-09-24 21:45] VITALS: BP 164/73
[2017-09-25] VITALS (7 sets, daily range): BP systolic 95–160; BP diastolic 47–74
[2017-09-25] MEDS: IV NS 0.9% 1,000 ML IV PRN (01:02)
--- NOTE | 2017-09-25 02:05 | NUR ---
RN NOTES, RECEIVED A CALL FROM LAB REGARDING TROPONIN LEVEL 0.411, CALL ANISA CLEANING ABOUT THE LEVEL FOR TROPONIN AND MD REPLIED WITH NO NEW ORDERS, WILL CONTINUE TO MONITOR CLOSELY, PATIENT SLEEPING BREATHING EVEN AND UNLABORED NO S/S OF ANY DISCOMFORT NOTED AT THIS TIME, SYNUS YOLIS IN THE MONITOR AT 80BPM.
[2017-09-25] MEDS: MEROPENEM 500 MG in IV NS 0.9% 50 ML IV SCH ×3 (02:33→19:46)
--- NOTE | 2017-09-25 07:35 | NUR ---
RN NOTES RECEIVED PT ASLEEP IN BED, EASILY AROUSABLE DURING CARE RESPIRATIONS EVEN AND UNLABORED, DENIES ANY PAIN OR DISCOMFORT AT THIS TIME. IV ACCESS PATENT AND INTACT NO REDNESS OR INFILTRATION NOTED, PATIENT WITH FC IN PLACE PATENT AND INTACT, MD AWARE, CONTINUE TO MONITOR. SAFETY MEASURES IN PLACE, CONTINUE TO MONITOR AT THIS TIME
--- NOTE | 2017-09-25 07:45 | NUR ---
RN NOTES RECEIVED NOTIFICATION THAT BUN RESULT IS [address] SAL WITH NO NEW ORDERS AT THIS TIME
[2017-09-25 07:48] LABS: BASOPHILS # (AUTO) 0.1 /CMM (0.0-0.2); BASOPHILS % (AUTO) 0.5 % (0.0-2.0); EOSINOPHILS # (AUTO) 0.1 /CMM (0.0-0.7); EOSINOPHILS % (AUTO) 0.3 % (0.0-6.0); HEMATOCRIT 25 % (39-51); HEMOGLOBIN 8.6 g/dL (13.5-17.5); LYMPHOCYTES # (AUTO) 1.9 /CMM (0.8-4.8); LYMPHOCYTES % (AUTO) 9.4 % (20.0-44.0); MEAN CORPUSCULAR HEMOGLOBIN 31 PG (26.0-33.0); MEAN CORPUSCULAR HGB CONC 34 g/dl (31.0-36.0); MEAN CORPUSCULAR VOLUME 91 fL (80-96); MONOCYTES # (AUTO) 0.9 /CMM (0.1-1.30); MONOCYTES % (AUTO) 4.5 % (2.0-12.0); NEUTROPHILS # (AUTO) 16.9 /CMM (1.8-8.9); NEUTROPHILS % (AUTO) 85.3 % (43.0-81.0); PLATELET COUNT (AUTO) 263 /CMM (150-450); RDW COEFFICIENT OF VARIATION 16.6 (11.5-15.0); RED BLOOD CELL COUNT(AUTO) 2.76 MIL/uL (4.5-6.0); WHITE BLOOD COUNT (AUTO) 19.8 K/uL (4.3-11.0)
[2017-09-25 08:29] LABS: CALCIUM, SERUM 8.8 mg/dL (8.5-10.1); CARBON DIOXIDE 27 mmol/L (21-32); CHLORIDE 106 mmol/L (98-107); CREATININE 3.1 mg/dL (0.6-1.3); GLUCOSE 80 mg/dL (74-106); PHOSPHORUS 3.8 mg/dL (2.5-4.9); POTASSIUM 4.1 mmol/L (3.5-5.1); SODIUM SERUM 143 mmol/L (136-145); UREA NITROGEN, BLOOD 48 mg/dL (7-18)
[2017-09-25 08:30] LABS: ALANINE AMINOTRANSFERASE 62 U/L (12-78); ALBUMIN 1.8 g/dL (3.4-5.0); ALKALINE PHOSPHATASE 78 U/L (46-116); ASPARTATE AMINOTRANSFERASE 32 U/L (15-37); BILIRUBIN,TOTAL 0.4 mg/dL (0.2-1.0); TOTAL PROTEIN, SERUM 5.6 g/dL (6.4-8.2)
[2017-09-25 09:06] LABS: CHOLESTEROL 88 mg/dL (<200); HDL CHOLESTEROL 42 mg/dL (40-60); LDL 38 mg/dL (0-99); THYROID STIMULATING HORMONE 2.941 uIU/mL (0.358-3.74); TRIGLYCERIDES 81 mg/dL (30-150)
[2017-09-25] MEDS ORDERED: EPOETIN ALFA (10,000 UNIT) 10,000 UNIT/ML VIAL SQ ONE (12:00)
--- NOTE | 2017-09-25 12:00 | NUR ---
RN NOTES RECEIVED NOTIFICATION THAT PT TROPONIN LEVEL IS 1.481 DR SAL MADE AWARE WITH NO NEW ORDERS AT THIS TIME, CONTINUE TO MONITOR
[2017-09-25] MEDS ORDERED: BISACODYL SUPP (10 MG) 10 MG/SUPP.RECT SUPP.RECT RC PRN (15:00)
[2017-09-25] MEDS ORDERED: VANCOMYCIN 500 MG in IV D5W 100 ML IV PRN (16:00)
--- NOTE | 2017-09-25 16:01 | NUR ---
RN NOTES PT ASLEEP IN BED, EASILY AROUSABLE DURING CARE RESPIRATIONS EVEN AND UNLABORED, DENIES ANY PAIN OR DISCOMFORT AT THIS TIME. IV ACCESS PATENT AND INTACT NO REDNESS OR INFILTRATION NOTED, PATIENT WITH FC IN PLACE PATENT AND INTACT, MD AWARE, CONTINUE TO MONITOR. SAFETY MEASURES IN PLACE, CONTINUE TO MONITOR AT THIS TIME, ENDORSED TO NEXT NURSE FOR CONTINUITY OF CARE
--- NOTE | 2017-09-25 16:13 | NUR ---
RN NOTES REPORT RECIEVED FROM DAY SHIFT RN FOR CONTINUITY OF CARE. A&0X1, SR ON THE TELE MONITOR 2L NC SATING WELL. MONET IN PLACE, NO URINE OUTPUT AT THIS TIME. RFA 20G IV SITE DRY AND INTACT. HD COMPLETED TODAY, 2L OUT PT TOLERATED. BED LOCKED AND IN LOWEST POSITION, CALL LIGHT WITHIN REACH, SIDE RAILS UPX3, WILL CONT TO MONITOR.
[2017-09-25] MEDS: MEGESTROL ACETATE SUSP 400 MG/10 ML UDC PO SCH (16:31)
[2017-09-25] MEDS: LACTOBACILLUS RHAMNOSUS GG 1 EACH CAP.SPRINK PO SCH (16:31)
[2017-09-25] MEDS: SUCRALFATE 1 G/10 ML UDC PO SCH ×2 (16:31→21:06)
[2017-09-25] MEDS: CARVEDILOL 3.125 MG TABLET PO SCH (16:32)
--- NOTE | 2017-09-25 18:23 | NUR ---
RN NOTES PT REMAINED IN STABLE CONDITION, NO SIGNIFICANT CHANGES, ALL NEEDS MET. PT FED DINNER. BED LOCKED AND IN LOWEST POSITION, SIDE RAILS UPX3, CALL LIGHT WITHIN REACH, WILL ENDORSE TO ONCOMING SHIFT.
--- NOTE | 2017-09-25 19:45 | NUR ---
REST ROOM MAID - INITIAL NOTES PATIENT IN BED CURRENTLY ASLEEP BUT EASILY AROUSABLE TO VERBAL STIMULI. NO S/S OF SOB OR ANY DISCOMFORT NOTED. TELE READING OF SR 90'S. BED IN LOW POSITION AND LOCKED. SIDERAILS X2 UP. WILL CONTINUE TO MONITOR PATIENT.
[2017-09-25] MEDS: TAMSULOSIN 0.4 MG CAP.SR.24H PO SCH (21:06)
[2017-09-25] MEDS: DOCUSATE SODIUM 100 MG CAPSULE PO SCH (21:06)
[2017-09-25] MEDS: DONEPEZIL 5 MG TABLET PO SCH (21:07)
[2017-09-25] MEDS: ATORVASTATIN 10 MG TABLET PO SCH (21:08)
[2017-09-25] MEDS: ENOXAPARIN SODIUM 40 MG/0.4 ML DISP.SYRIN SQ SCH (21:10)
[2017-09-26] VITALS (20 sets, daily range): BP systolic 106–150; BP diastolic 51–79
--- NOTE | 2017-09-26 02:16 | NUR ---
INFORMED DR. HOWELL REGARDING TROPONIN LEVEL OF 1.026 THIS EVENING. IT IS TRENDING DOWN FROM 1.481 YESTERDAY. PER MD IT IS OK.
[2017-09-26 04:04] LABS: BASOPHILS % (AUTO) 0.2 % (0.0-2.0); EOSINOPHILS # (AUTO) 0.1 /CMM (0.0-0.7); EOSINOPHILS % (AUTO) 0.4 % (0.0-6.0); HEMATOCRIT 23 % (39-51); HEMOGLOBIN 7.6 g/dL (13.5-17.5); LYMPHOCYTES # (AUTO) 1.2 /CMM (0.8-4.8); LYMPHOCYTES % (AUTO) 8.8 % (20.0-44.0); MEAN CORPUSCULAR HEMOGLOBIN 29 PG (26.0-33.0); MEAN CORPUSCULAR HGB CONC 33 g/dl (31.0-36.0); MEAN CORPUSCULAR VOLUME 88 fL (80-96); MONOCYTES # (AUTO) 0.4 /CMM (0.1-1.30); MONOCYTES % (AUTO) 3.1 % (2.0-12.0); NEUTROPHILS # (AUTO) 11.9 /CMM (1.8-8.9); NEUTROPHILS % (AUTO) 87.5 % (43.0-81.0); PLATELET COUNT (AUTO) 284 /CMM (150-450); RED BLOOD CELL COUNT(AUTO) 2.65 MIL/uL (4.5-6.0); WHITE BLOOD COUNT (AUTO) 13.6 K/uL (4.3-11.0)
[2017-09-26 04:33] LABS: CALCIUM, SERUM 8.9 mg/dL (8.5-10.1); CARBON DIOXIDE 28 mmol/L (21-32); CHLORIDE 110 mmol/L (98-107); CREATININE 2.6 mg/dL (0.6-1.3); GLUCOSE 81 mg/dL (74-106); MAGNESIUM 1.9 mg/dL (1.8-2.4); PHOSPHORUS 3.4 mg/dL (2.5-4.9); SODIUM SERUM 146 mmol/L (136-145); UREA NITROGEN, BLOOD 33 mg/dL (7-18)
[2017-09-26 05:16] LABS: EOSINOPHILS % (MANUAL) 1 % (0-4); LYMPHOCYTES % (MANUAL) 9 % (16-48); MONOCYTES % (MANUAL) 4 % (0-11.0); NEUTROPHILS % (MANUAL) 86 (42-76)
[2017-09-26] MEDS: IV NS 0.9% 1,000 ML IV PRN (06:02)
--- NOTE | 2017-09-26 06:30 | NUR ---
CUSTOMER DEVELOPMENT REPRESENTATIVE - CLOSING NOTES PATIENT REMAINS STABLE. TURNED AND REPOSITIONED Q2H. NO S/S OF SOB OR ANY DISCOMFORT NOTED. PATIENT REMAINS SR ON MONITOR WITH HEART RATE READING OF 95 AT THIS MOMENT. NO SIGNIFICANT CHANGES NOTED AT THIS SHIFT. WILL ENDORSE TO MORNING NURSE FOR CONTINUITY OF CARE.
--- NOTE | 2017-09-26 08:07 | NUR ---
WOUND CARE CONSULT: PT BEING FED BREAKFAST AT THIS TIME. PT FOLLOWED BY SURGICAL TEAM FOR WOUNDS. MULTIPLE WOUNDS NOTED TO BE PRESENT ON ADMISSION INCLUDING LEFT HIP UNSTAGEABLE WOUND WHICH WAS DEBRIDED. DEFER TO SURGICAL TEAM FOR WOUND TREATMENT PLAN. ALL SKIN PROTECTION MEASURES IN PLACE. DISCUSSED WITH NURSING STAFF. PT ON ROSA ISOFLEX LOW AIRLOSS BED. CURRENT EDELMIRA SCORE IS 10. WILL SEE PRN. IN AGREEMENT WITH PLAN OF CARE.
--- NOTE | 2017-09-26 08:08 | NUR ---
POCKETBOOK MAKER - INITIAL NOTES PATIENT IN BED CURRENTLY ASLEEP HOWEVER EASILY AROUSABLE TO VERBAL STIMULI. NO S/S OF SOB OR ANY DISCOMFORT NOTED. TELE READING OF SR 90'S. BED IN LOW POSITION AND LOCKED. SIDERAILS X2 UP. RN WILL CONTINUE TO MONITOR PATIENT.
[2017-09-26] MEDS: SUCRALFATE 1 G/10 ML UDC PO SCH ×4 (09:10→21:11)
[2017-09-26] MEDS: FOLIC ACID 1 MG TABLET PO SCH (09:10)
[2017-09-26] MEDS: MEROPENEM 500 MG in IV NS 0.9% 50 ML IV SCH (09:10)
[2017-09-26] MEDS: LamoTRIgine 25 MG TABLET PO SCH (09:10)
[2017-09-26] MEDS: LACTOBACILLUS RHAMNOSUS GG 1 EACH CAP.SPRINK PO SCH ×2 (09:11→17:08)
[2017-09-26] MEDS: FERROUS SULFATE (325 MG) 325 MG/TAB TABLET PO SCH (09:11)
[2017-09-26] MEDS: ALLOPURINOL 100 MG TABLET PO SCH (09:11)
[2017-09-26] MEDS: ENALAPRIL MALEATE (10 MG) 10 MG TABLET PO SCH (09:11)
[2017-09-26] MEDS: MEGESTROL ACETATE SUSP 400 MG/10 ML UDC PO SCH ×2 (09:11→17:08)
[2017-09-26] MEDS: CARVEDILOL 3.125 MG TABLET PO SCH ×2 (09:11→17:10)
[2017-09-26] MEDS: CITALOPRAM HYDROBROMIDE 20 MG TABLET PO SCH (09:12)
[2017-09-26] MEDS: RENAL NOVASOURCE (8OZ) 1 EA BOX PO SCH (10:16)
[2017-09-26] MEDS: AMLODIPINE BESYLATE 10 MG TABLET PO SCH (17:10)
--- NOTE | 2017-09-26 18:58 | NUR ---
RN CLOSING NOTE PATIENT KEEP CLEAN DRY AND INTACT , PATIENT , HAS NO COMPLAINTS OF NAUSEA VOMITING OR PAIN NOTED PATIENT PATIENT TURNED AND REPOSITIONED Q 2HRS WITH OUT ISSUE OR CONCERNS PATIENT IS IN BED AXOX1, PATIENT RECEIVED 1 UNIT OF RBC, PATIENT TOLERATED WELL PATIENT ABLE TO TAKE MEDICATION CRUSHED IN APPLE SAUCE, PATIENT NON VERBAL RN WILL ENDORSED CARE TO PM RN .
--- NOTE | 2017-09-26 19:30 | NUR ---
TELE/RN NOTES: RECEIVED PT. IN BED W/ HEAD LEANING TOWARDS THE LEFT SIDE. NON VERBAL. NO FACIAL GRIMACES OR MOANING NOTED. O2 @ 3LPM VIA N/C SAT 98 %. HAS G # 20 ON RFA AND G 20 ON R WRIST PATENT AND INTACT W/ NO S/S OF INFECTION/INFILTRATION NOTED. HAS LFA AV SHUNT. CALL LIGHT W/ REACH. ALL NEEDS MEET AND ATTENDED. WILL CONTINUE TO MONITOR.
--- NOTE | 2017-09-26 20:15 | NUR ---
RN/TELE NOTES: STARTED 2ND UNIT OF BLOOD TRANSFUSION. V/S TAKEN.
[2017-09-26] MEDS: ACETAMINOPHEN 325 MG TABLET PO PRN (20:16)
[2017-09-26] MEDS: DOCUSATE SODIUM 100 MG CAPSULE PO SCH (21:10)
[2017-09-26] MEDS: TAMSULOSIN 0.4 MG CAP.SR.24H PO SCH (21:10)
[2017-09-26] MEDS: DONEPEZIL 5 MG TABLET PO SCH (21:10)
[2017-09-26] MEDS: ATORVASTATIN 10 MG TABLET PO SCH (21:11)
[2017-09-26] MEDS: ENOXAPARIN SODIUM 40 MG/0.4 ML DISP.SYRIN SQ SCH (21:11)
[2017-09-27 00:01] VITALS: BP 115/74
[2017-09-27 00:16] VITALS: BP 119/67
[2017-09-27] MEDS: MEROPENEM 500 MG in IV NS 0.9% 50 ML IV SCH ×2 (00:25→17:15)
[2017-09-27 04:00] VITALS: BP 127/64
--- NOTE | 2017-09-27 06:57 | NUR ---
TELE/RN NOTES: PT. IN BED RESTING COMFORTABLE. NO FACIAL GRIMACES OR MOANING NOTED. REPORT GIVEN TO NEXT SHIFT NURSE FOR JOSE.
[2017-09-27 07:39] LABS: BASOPHILS % (AUTO) 0.3 % (0.0-2.0); EOSINOPHILS # (AUTO) 0.1 /CMM (0.0-0.7); EOSINOPHILS % (AUTO) 0.5 % (0.0-6.0); HEMATOCRIT 32 % (39-51); HEMOGLOBIN 10.9 g/dL (13.5-17.5); LYMPHOCYTES # (AUTO) 1.3 /CMM (0.8-4.8); LYMPHOCYTES % (AUTO) 7.2 % (20.0-44.0); MEAN CORPUSCULAR HEMOGLOBIN 30 PG (26.0-33.0); MEAN CORPUSCULAR HGB CONC 34 g/dl (31.0-36.0); MEAN CORPUSCULAR VOLUME 90 fL (80-96); MONOCYTES # (AUTO) 0.4 /CMM (0.1-1.30); MONOCYTES % (AUTO) 2.3 % (2.0-12.0); NEUTROPHILS # (AUTO) 16.2 /CMM (1.8-8.9); NEUTROPHILS % (AUTO) 89.7 % (43.0-81.0); PLATELET COUNT (AUTO) 224 /CMM (150-450); RDW COEFFICIENT OF VARIATION 16.7 (11.5-15.0); RED BLOOD CELL COUNT(AUTO) 3.59 MIL/uL (4.5-6.0); WHITE BLOOD COUNT (AUTO) 18.1 K/uL (4.3-11.0)
--- NOTE | 2017-09-27 07:40 | NUR ---
RN NOTE:(INITIAL) PT RECEIVED ALERT AWAKE ORIENTED X 1. RESPONSIVE TO VERBAL & TACTILE STIMULI. ON OXYGEN 2LPM VIA NC, NO BREATHING DIFFICULTY NOTED. ON TELE MONITORING, SINUS RHYTHM . IV SITE INTACT, RUNNING WITH IV FLUIDS ORDERED. F/C INTACT, DRAINING WELL WITH GRAVITY,. SAFETY MEASURES OBSERVED. WILL CONTINUE TO MONITOR.
[2017-09-27 08:00] VITALS: BP 120/61
[2017-09-27 08:15] LABS: CALCIUM, SERUM 8.8 mg/dL (8.5-10.1); CARBON DIOXIDE 24 mmol/L (21-32); CHLORIDE 109 mmol/L (98-107); CREATININE 3.6 mg/dL (0.6-1.3); GLUCOSE 89 mg/dL (74-106); PHOSPHORUS 3.6 mg/dL (2.5-4.9); POTASSIUM 4.4 mmol/L (3.5-5.1); SODIUM SERUM 144 mmol/L (136-145); UREA NITROGEN, BLOOD 45 mg/dL (7-18)
[2017-09-27] MEDS: MEGESTROL ACETATE SUSP 400 MG/10 ML UDC PO SCH ×2 (08:26→17:13)
[2017-09-27] MEDS: ALLOPURINOL 100 MG TABLET PO SCH (08:26)
[2017-09-27] MEDS: CITALOPRAM HYDROBROMIDE 20 MG TABLET PO SCH (08:26)
[2017-09-27] MEDS: LamoTRIgine 25 MG TABLET PO SCH (08:26)
[2017-09-27] MEDS: SUCRALFATE 1 G/10 ML UDC PO SCH ×4 (08:26→21:53)
[2017-09-27] MEDS: LACTOBACILLUS RHAMNOSUS GG 1 EACH CAP.SPRINK PO SCH ×2 (08:26→17:13)
[2017-09-27] MEDS: FOLIC ACID 1 MG TABLET PO SCH (08:27)
[2017-09-27] MEDS: CARVEDILOL 3.125 MG TABLET PO SCH ×2 (08:28→17:15)
[2017-09-27] MEDS: RENAL NOVASOURCE (8OZ) 1 EA BOX PO SCH (08:31)
[2017-09-27] MEDS: ENALAPRIL MALEATE (10 MG) 10 MG TABLET PO SCH (09:00)
--- NOTE | 2017-09-27 10:00 | NUR ---
RN NOTES: HELD ALL CARDIAC MEDICATION, DUE TO SCHEDULE FOR DIALYSIS. SPOKE WITH ELECTRICAL MANUFACTURING ENGINEER WILL START DIALYSIS SOON. WILL CONTINUE TO MONITOR.
[2017-09-27] MEDS: Z GUARD REMEDY 2 OZ OINT TP SCH (12:15)
[2017-09-27] MEDS ORDERED: EPOETIN ALFA (10,000 UNIT) 10,000 UNIT/ML VIAL IV ONE (12:30)
[2017-09-27 16:00] VITALS: BP 148/79
[2017-09-27] MEDS ORDERED: FEE PK DOSING 1 MIN EA MC ONE (18:27)
[2017-09-27] MEDS ORDERED: TOBRAMYCIN 120 MG in IV D5W 50 ML IV ONE (18:30)
--- NOTE | 2017-09-27 18:42 | NUR ---
RN NOTES: PT REMAINS STABLE DURING SHIFT. NO ACUTE DISTRESS NOTED. S/P HEMODIALYSIS TODAY, TOLERATED WELL. 2L OUTPUT. SAFETY MEASURES OBSERVED. F/C INTACT, DRAINING WITH MINIMAL URINE OUTPUT. WILL ENDORSE TO PM SHIFT FOR CONTINUITY OF CARE.
--- NOTE | 2017-09-27 19:30 | NUR ---
RN/MS NOTES: RECEIVED PT. IN BED W/ HEAD LEANING TOWARDS THE LEFT SIDE. NON VERBAL. NO FACIAL GRIMACES OR MOANING NOTED. O2 @ 3LPM VIA N/C SAT 100 %. HAS G # 20 ON RFA AND G 20 ON R WRIST PATENT AND INTACT W/ NO S/S OF INFECTION/INFILTRATION NOTED. HAS LFA AV SHUNT. CALL LIGHT W/ REACH. ALL NEEDS MEET AND ATTENDED. WILL CONTINUE TO MONITOR.
[2017-09-27 20:00] VITALS: BP 151/69
[2017-09-27] MEDS: DOCUSATE SODIUM 100 MG CAPSULE PO SCH (21:48)
[2017-09-27] MEDS: TAMSULOSIN 0.4 MG CAP.SR.24H PO SCH (21:48)
[2017-09-27] MEDS: DONEPEZIL 5 MG TABLET PO SCH (21:48)
[2017-09-27] MEDS: ATORVASTATIN 10 MG TABLET PO SCH (21:48)
[2017-09-27] MEDS: ENOXAPARIN SODIUM 40 MG/0.4 ML DISP.SYRIN SQ SCH (21:49)
[2017-09-28] VITALS: BP 99/62
[2017-09-28] MEDS: MEROPENEM 500 MG in IV NS 0.9% 50 ML IV SCH ×2 (03:08→16:01)
[2017-09-28 04:00] VITALS: BP 146/70
[2017-09-28 07:12] LABS: BASOPHILS % (AUTO) 0.2 % (0.0-2.0); EOSINOPHILS % (AUTO) 0.1 % (0.0-6.0); HEMATOCRIT 34 % (39-51); HEMOGLOBIN 11.2 g/dL (13.5-17.5); LYMPHOCYTES # (AUTO) 1.5 /CMM (0.8-4.8); LYMPHOCYTES % (AUTO) 8.9 % (20.0-44.0); MEAN CORPUSCULAR HEMOGLOBIN 29 PG (26.0-33.0); MEAN CORPUSCULAR HGB CONC 33 g/dl (31.0-36.0); MEAN CORPUSCULAR VOLUME 87 fL (80-96); MONOCYTES # (AUTO) 0.8 /CMM (0.1-1.30); MONOCYTES % (AUTO) 4.5 % (2.0-12.0); NEUTROPHILS # (AUTO) 14.7 /CMM (1.8-8.9); NEUTROPHILS % (AUTO) 86.3 % (43.0-81.0); PLATELET COUNT (AUTO) 223 /CMM (150-450); RDW COEFFICIENT OF VARIATION 16.6 (11.5-15.0); RED BLOOD CELL COUNT(AUTO) 3.86 MIL/uL (4.5-6.0); WHITE BLOOD COUNT (AUTO) 17.1 K/uL (4.3-11.0)
--- NOTE | 2017-09-28 07:21 | NUR ---
RN/MS NOTES: PT. IN BED RESTING COMFORTABLE. NO FACIAL GRIMACES OR MOANING NOTED. REPORT GIVEN TO NEXT SHIFT NURSE FOR JOSE
--- NOTE | 2017-09-28 07:25 | NUR ---
ms rn received on bed, awake,alert,oriented x1,not in any form of distress, respirations even and unlabored, no sob noted, patient is sleepy, somewhat lethargic but arousable, will monitor patient.
[2017-09-28 07:48] LABS: CALCIUM, SERUM 8.9 mg/dL (8.5-10.1); CARBON DIOXIDE 28 mmol/L (21-32); CHLORIDE 104 mmol/L (98-107); CREATININE 2.9 mg/dL (0.6-1.3); GLUCOSE 79 mg/dL (74-106); MAGNESIUM 1.9 mg/dL (1.8-2.4); PHOSPHORUS 2.7 mg/dL (2.5-4.9); POTASSIUM 3.7 mmol/L (3.5-5.1); SODIUM SERUM 141 mmol/L (136-145); UREA NITROGEN, BLOOD 29 mg/dL (7-18)
[2017-09-28 08:00] VITALS: BP 121/71
--- NOTE | 2017-09-28 08:30 | NUR ---
ms rn patient diod not eat, due to very sleepy at this time, will eld meds at this time.
[2017-09-28] MEDS: ENALAPRIL MALEATE (10 MG) 10 MG TABLET PO SCH (09:00)
[2017-09-28] MEDS: MEGESTROL ACETATE SUSP 400 MG/10 ML UDC PO SCH ×2 (09:00→17:33)
[2017-09-28] MEDS: SUCRALFATE 1 G/10 ML UDC PO SCH ×4 (09:00→21:20)
[2017-09-28] MEDS: Z GUARD REMEDY 2 OZ OINT TP SCH (09:00)
[2017-09-28] MEDS: CARVEDILOL 3.125 MG TABLET PO SCH ×2 (09:00→16:09)
[2017-09-28] MEDS: LACTOBACILLUS RHAMNOSUS GG 1 EACH CAP.SPRINK PO SCH ×2 (09:00→17:33)
[2017-09-28] MEDS: AMLODIPINE BESYLATE 10 MG TABLET PO SCH (15:00)
[2017-09-28 16:00] VITALS: BP 103/55
[2017-09-28] MEDS: ALLOPURINOL 100 MG TABLET PO SCH (17:33)
[2017-09-28] MEDS: LamoTRIgine 25 MG TABLET PO SCH (17:33)
[2017-09-28] MEDS: CITALOPRAM HYDROBROMIDE 20 MG TABLET PO SCH (17:33)
[2017-09-28] MEDS: FOLIC ACID 1 MG TABLET PO SCH (17:33)
[2017-09-28] MEDS: Z GUARD REMEDY 2 OZ OINT TP PRN ×2 (17:34→17:47)
[2017-09-28] MEDS: RENAL NOVASOURCE (8OZ) 1 EA BOX PO SCH (17:46)
--- NOTE | 2017-09-28 18:00 | NUR ---
MS RN NO CHANGE OF CONDITION,ALL NEEDS ATTENDED.
[2017-09-28 20:00] VITALS: BP_SYST 133; BP_SYST 98; BP_DIAS 50; BP_DIAS 62
[2017-09-28] MEDS: TAMSULOSIN 0.4 MG CAP.SR.24H PO SCH (21:20)
[2017-09-28] MEDS: DONEPEZIL 5 MG TABLET PO SCH (21:20)
[2017-09-28] MEDS: DOCUSATE SODIUM 100 MG CAPSULE PO SCH (21:20)
[2017-09-28] MEDS: ATORVASTATIN 10 MG TABLET PO SCH (21:20)
[2017-09-28] MEDS: ENOXAPARIN SODIUM 40 MG/0.4 ML DISP.SYRIN SQ SCH (21:21)
[2017-09-29] MEDS: MEROPENEM 500 MG in IV NS 0.9% 50 ML IV SCH ×2 (02:24→15:49)
[2017-09-29 04:00] VITALS: BP 146/74
[2017-09-29 06:38] LABS: CALCIUM, SERUM 9.2 mg/dL (8.5-10.1); CARBON DIOXIDE 25 mmol/L (21-32); CHLORIDE 104 mmol/L (98-107); CREATININE 3.9 mg/dL (0.6-1.3); GLUCOSE 70 mg/dL (74-106); POTASSIUM 4.1 mmol/L (3.5-5.1); SODIUM SERUM 142 mmol/L (136-145); UREA NITROGEN, BLOOD 38 mg/dL (7-18)
--- NOTE | 2017-09-29 07:25 | NUR ---
RN/MS NOTES: PT. IN BED RESTING COMFORTABLE. NO FACIAL GRIMACES OR MOANING NOTED. REPORT GIVEN TO NEXT SHIFT NURSE FOR JOSE.
[2017-09-29 08:00] VITALS: BP 156/69
[2017-09-29] MEDS: MEGESTROL ACETATE SUSP 400 MG/10 ML UDC PO SCH ×2 (08:20→16:25)
[2017-09-29] MEDS: LACTOBACILLUS RHAMNOSUS GG 1 EACH CAP.SPRINK PO SCH ×2 (08:20→16:26)
[2017-09-29] MEDS: ALLOPURINOL 100 MG TABLET PO SCH (08:20)
[2017-09-29] MEDS: CITALOPRAM HYDROBROMIDE 20 MG TABLET PO SCH (08:20)
[2017-09-29] MEDS: FERROUS SULFATE (325 MG) 325 MG/TAB TABLET PO SCH (08:20)
[2017-09-29] MEDS: FOLIC ACID 1 MG TABLET PO SCH (08:20)
[2017-09-29] MEDS: SUCRALFATE 1 G/10 ML UDC PO SCH ×4 (08:20→20:53)
[2017-09-29] MEDS: LamoTRIgine 25 MG TABLET PO SCH (08:21)
[2017-09-29] MEDS: ENALAPRIL MALEATE (10 MG) 10 MG TABLET PO SCH (08:21)
[2017-09-29] MEDS: CARVEDILOL 3.125 MG TABLET PO SCH ×2 (08:21→16:26)
[2017-09-29] MEDS: RENAL NOVASOURCE (8OZ) 1 EA BOX PO SCH (08:22)
[2017-09-29] MEDS: Z GUARD REMEDY 2 OZ OINT TP SCH (08:22)
[2017-09-29] MEDS: AMLODIPINE BESYLATE 10 MG TABLET PO SCH (15:54)
--- NOTE | 2017-09-29 19:30 | NUR ---
MSRN ASLEEP, APPEARS COMFORTABLE. O2 2 L VIA NC MAINTAINED, NO SOB. MONET CATH TO GRAVITY OUTPUT SCANTY, HD PATIENT. NO NEEDS FOR NOW, CONTINUED MONITORING.
[2017-09-29] MEDS: ENOXAPARIN SODIUM 40 MG/0.4 ML DISP.SYRIN SQ SCH (20:53)
[2017-09-29 21:01] VITALS: BP 133/62
[2017-09-29] MEDS: TAMSULOSIN 0.4 MG CAP.SR.24H PO SCH (21:46)
[2017-09-29] MEDS: ATORVASTATIN 10 MG TABLET PO SCH (21:46)
[2017-09-29] MEDS: DOCUSATE SODIUM 100 MG CAPSULE PO SCH (21:46)
[2017-09-29] MEDS: DONEPEZIL 5 MG TABLET PO SCH (21:46)
--- NOTE | 2017-09-29 21:54 | NUR ---
MSRN DUE MEDS ADMINISTERED, WITH PUDDING. FLUIDS RESTRICTED. TOLERATED WELL
[2017-09-30] MEDS: MEROPENEM 500 MG in IV NS 0.9% 50 ML IV SCH ×2 (02:59→16:20)
[2017-09-30 04:23] VITALS: BP 97/76
[2017-09-30 06:28] LABS: BASOPHILS # (AUTO) 0.2 /CMM (0.0-0.2); BASOPHILS % (AUTO) 2.2 % (0.0-2.0); EOSINOPHILS # (AUTO) 0.1 /CMM (0.0-0.7); EOSINOPHILS % (AUTO) 0.7 % (0.0-6.0); HEMATOCRIT 37 % (39-51); LYMPHOCYTES # (AUTO) 1.5 /CMM (0.8-4.8); LYMPHOCYTES % (AUTO) 13.8 % (20.0-44.0); MEAN CORPUSCULAR HEMOGLOBIN 28 PG (26.0-33.0); MEAN CORPUSCULAR HGB CONC 33 g/dl (31.0-36.0); MEAN CORPUSCULAR VOLUME 85 fL (80-96); MONOCYTES # (AUTO) 0.8 /CMM (0.1-1.30); MONOCYTES % (AUTO) 7.2 % (2.0-12.0); NEUTROPHILS # (AUTO) 8.3 /CMM (1.8-8.9); NEUTROPHILS % (AUTO) 76.1 % (43.0-81.0); PLATELET COUNT (AUTO) 211 /CMM (150-450); RDW COEFFICIENT OF VARIATION 16.4 (11.5-15.0); RED BLOOD CELL COUNT(AUTO) 4.29 MIL/uL (4.5-6.0)
[2017-09-30 06:47] LABS: CALCIUM, SERUM 9.1 mg/dL (8.5-10.1); CARBON DIOXIDE 28 mmol/L (21-32); CHLORIDE 102 mmol/L (98-107); CREATININE 3.3 mg/dL (0.6-1.3); GLUCOSE 93 mg/dL (74-106); PHOSPHORUS 2.6 mg/dL (2.5-4.9); POTASSIUM 3.8 mmol/L (3.5-5.1); SODIUM SERUM 139 mmol/L (136-145); UREA NITROGEN, BLOOD 31 mg/dL (7-18)
--- NOTE | 2017-09-30 06:54 | NUR ---
MSRN V/S STABLE, REMAINS UNCHANGED. APPEARS COMFORTABLE. CLOSELY WATCHED.
--- NOTE | 2017-09-30 07:37 | NUR ---
RN INITIAL NOTES: PT RECEIVED IN BED RESTING, NON VERBAL. NO PAIN OR SOB NOTED AT THIS TIME. O2 @ 3LPM VIA N/C SAT 100 %. HAS G # 20 ON RFA IV PATENT AND INTACT W/ NO S/S OF INFECTION/INFILTRATION NOTED. PT HAS LFA AV SHUNT. CALL LIGHT W/ REACH. ALL NEEDS MEET AND ATTENDED.RN WILL CONTINUE TO MONITOR THROUGHOUT THE DAY .
[2017-09-30 08:00] VITALS: BP 165/74
[2017-09-30 08:35] LABS: EOSINOPHILS % (MANUAL) 1 % (0-4); LYMPHOCYTES % (MANUAL) 16 % (16-48); MONOCYTES % (MANUAL) 6 % (0-11.0); NEUTROPHILS % (MANUAL) 77 (42-76)
[2017-09-30] MEDS: LACTOBACILLUS RHAMNOSUS GG 1 EACH CAP.SPRINK PO SCH ×2 (08:36→16:20)
[2017-09-30] MEDS: ENALAPRIL MALEATE (10 MG) 10 MG TABLET PO SCH (08:37)
[2017-09-30] MEDS: CARVEDILOL 3.125 MG TABLET PO SCH ×2 (08:37→16:20)
[2017-09-30] MEDS: MEGESTROL ACETATE SUSP 400 MG/10 ML UDC PO SCH ×2 (08:37→16:20)
[2017-09-30] MEDS: CITALOPRAM HYDROBROMIDE 20 MG TABLET PO SCH (08:37)
[2017-09-30] MEDS: LamoTRIgine 25 MG TABLET PO SCH (08:37)
[2017-09-30] MEDS: FOLIC ACID 1 MG TABLET PO SCH (08:37)
[2017-09-30] MEDS: ALLOPURINOL 100 MG TABLET PO SCH (08:38)
[2017-09-30] MEDS: SUCRALFATE 1 G/10 ML UDC PO SCH ×4 (08:38→21:27)
[2017-09-30] MEDS: Z GUARD REMEDY 2 OZ OINT TP SCH (08:38)
[2017-09-30] MEDS: RENAL NOVASOURCE (8OZ) 1 EA BOX PO SCH (08:57)
[2017-09-30] MEDS: HEPARIN SODIUM, PORCINE 5000 UNITS/1 ML VIAL SQ SCH ×2 (08:58→21:29)
[2017-09-30 12:00] VITALS: BP 132/74
--- NOTE | 2017-09-30 14:05 | NUR ---
Rn Note Per pharmacist Vlad -rn to give tobramycin , patient medication not administer post hd on 09/29/17, for unknown reason however tobramycin trough 2.9 , rn will administer and hang antibiotic accordingly per pharmacist direction , charge nurse angel notified and acknowledged
[2017-09-30] MEDS: TOBRAMYCIN 80 MG in IV D5W 50 ML IV PRN (14:08)
[2017-09-30 16:00] VITALS: BP 186/73
--- NOTE | 2017-09-30 18:32 | NUR ---
RN CLOSING NOTE PATIENT ACTIVITY LEVEL REMAINS THER SAME PATIENT TURNED AND REPOSITIONED Q 2HRS PATIENT DRESSINGS CHANGED PER ORDERS PATIENT EATS WELL , NURSING STAFF FEEDS PATIENT PATIENT FAMILY UPDATED ON THE PLAN OF CARE , NO SOB OR DISTRESS NOTED RN WILL ENDORSE CARE TO PM RN
--- NOTE | 2017-09-30 19:30 | NUR ---
RN INITIAL NOTES, PATIENT ALERT AND ORIENTED TO SELF UNABLE TO COMMUNICATE NEEDS AND CONCERNS, BREATHING EVEN AND UNLABORED, NO S/S OF ANY CUTE DISTRESS OR SOB NOTED AT THIS TIME, ABDOMEN SOFT AND NON DISTENDED WITH POSITIVE BOWEL SOUNDS UPON ADOSCULATION, WITH F/C IN PLACE, NO URINE NOTED IN THE BAG SECONDARY TO PATIENT DIAGNOSE ESRF WITH HD, DRY AND CLEAN, REPOSITION PROVIDED, BED LOCKED AND IN LOWEST POSITION, WILL CONTINUE TO MONITOR CLOSELY.
[2017-09-30 20:00] VITALS: BP 152/58
[2017-09-30] MEDS: ATORVASTATIN 10 MG TABLET PO SCH (21:27)
[2017-09-30] MEDS: TAMSULOSIN 0.4 MG CAP.SR.24H PO SCH (21:27)
[2017-09-30] MEDS: DOCUSATE SODIUM 100 MG CAPSULE PO SCH (21:28)
[2017-09-30] MEDS: DONEPEZIL 5 MG TABLET PO SCH (21:28)
[2017-10-01] MEDS: MEROPENEM 500 MG in IV NS 0.9% 50 ML IV SCH ×2 (03:00→14:35)
[2017-10-01 04:00] VITALS: BP 135/91
[2017-10-01] MEDS: ACETAMINOPHEN 325 MG TABLET PO PRN (04:46)
--- NOTE | 2017-10-01 06:30 | NUR ---
RN CLOSING NOTES, PATIENT IN BED AWAKE AT THIS TIME, BREATHING EVEN AND UNLABORED, NO S/S OF DISCOMFORT, PAIN , SOB OR ACUTE DISTRESS NOTED AT THIS TIME, BED LOCKED AND IN LOWEST POSITION, KARTHIK LIGHT W/I REACH. WILL ENDORSE CONTINUITY OF CARE TO NEXT NURSE.
[2017-10-01 07:04] LABS: BASOPHILS % (AUTO) 0.2 % (0.0-2.0); EOSINOPHILS # (AUTO) 0.1 /CMM (0.0-0.7); EOSINOPHILS % (AUTO) 0.6 % (0.0-6.0); HEMATOCRIT 36 % (39-51); HEMOGLOBIN 12.3 g/dL (13.5-17.5); LYMPHOCYTES # (AUTO) 0.8 /CMM (0.8-4.8); MEAN CORPUSCULAR HEMOGLOBIN 29 PG (26.0-33.0); MEAN CORPUSCULAR HGB CONC 34 g/dl (31.0-36.0); MEAN CORPUSCULAR VOLUME 87 fL (80-96); MONOCYTES # (AUTO) 0.6 /CMM (0.1-1.30); MONOCYTES % (AUTO) 5.4 % (2.0-12.0); NEUTROPHILS # (AUTO) 10.4 /CMM (1.8-8.9); NEUTROPHILS % (AUTO) 86.8 % (43.0-81.0); PLATELET COUNT (AUTO) 224 /CMM (150-450); RDW COEFFICIENT OF VARIATION 16.2 (11.5-15.0); RED BLOOD CELL COUNT(AUTO) 4.17 MIL/uL (4.5-6.0)
--- NOTE | 2017-10-01 07:30 | NUR ---
GROUP THERAPIST INITIAL NOTES, RECEIVED PATIENT SLEEPING IN BED, EASY TO AROUSE, AOX1, UNABLE TO COMMUNICATE NEEDS, BREATHING EVEN AND UNLABORED, F/C IN PLACE, NO URINE NOTED IN THE BAG SECONDARY TO PATIENT DIAGNOSE ESBL WITH HD, L AF SHUNT WITH POSITIVE THRILL AND BRUIT, IV R WRIST PATENT AND CLEAN, WILL HAVE HD TODAY, ARMS CONTRACTED, BED LOCKED AND IN LOWEST POSITION, CALL LIGHT WITHIN REACH, WILL CONTINUE TO MONITOR CLOSELY.
[2017-10-01 07:39] LABS: ALANINE AMINOTRANSFERASE 16 U/L (12-78); ALBUMIN 1.8 g/dL (3.4-5.0); ALKALINE PHOSPHATASE 87 U/L (46-116); ASPARTATE AMINOTRANSFERASE 18 U/L (15-37); BILIRUBIN,TOTAL 0.3 mg/dL (0.2-1.0); CALCIUM, SERUM 9.4 mg/dL (8.5-10.1); CARBON DIOXIDE 27 mmol/L (21-32); CHLORIDE 105 mmol/L (98-107); CREATININE 4.7 mg/dL (0.6-1.3); GLUCOSE 113 mg/dL (74-106); MAGNESIUM 1.9 mg/dL (1.8-2.4); PHOSPHORUS 2.8 mg/dL (2.5-4.9); SODIUM SERUM 142 mmol/L (136-145); TOTAL PROTEIN, SERUM 5.8 g/dL (6.4-8.2); UREA NITROGEN, BLOOD 53 mg/dL (7-18)
[2017-10-01 08:00] VITALS: BP 166/79
[2017-10-01] MEDS: LACTOBACILLUS RHAMNOSUS GG 1 EACH CAP.SPRINK PO SCH ×2 (08:36→16:47)
[2017-10-01] MEDS: ALLOPURINOL 100 MG TABLET PO SCH (08:36)
[2017-10-01] MEDS: CITALOPRAM HYDROBROMIDE 20 MG TABLET PO SCH (08:36)
[2017-10-01] MEDS: SUCRALFATE 1 G/10 ML UDC PO SCH ×4 (08:36→21:32)
[2017-10-01] MEDS: LamoTRIgine 25 MG TABLET PO SCH (08:36)
[2017-10-01] MEDS: FOLIC ACID 1 MG TABLET PO SCH (08:36)
[2017-10-01] MEDS: MEGESTROL ACETATE SUSP 400 MG/10 ML UDC PO SCH ×2 (08:36→16:47)
[2017-10-01] MEDS: HEPARIN SODIUM, PORCINE 5000 UNITS/1 ML VIAL SQ SCH ×2 (08:39→21:31)
[2017-10-01] MEDS: FERROUS SULFATE (325 MG) 325 MG/TAB TABLET PO SCH (08:42)
[2017-10-01] MEDS: Z GUARD REMEDY 2 OZ OINT TP SCH (08:47)
--- NOTE | 2017-10-01 09:00 | NUR ---
PHOTOGRAPHY COORDINATOR NOTES PATIENT RECEIVING DIALYSIS TREATMENT AT THIS TIME, BLOOD PRESSURE MEDS TO BE GIVEN AFTER DIALYSIS.
[2017-10-01] MEDS: RENAL NOVASOURCE (8OZ) 1 EA BOX PO SCH (10:05)
[2017-10-01] MEDS: ENALAPRIL MALEATE (10 MG) 10 MG TABLET PO SCH (11:51)
[2017-10-01] MEDS: CARVEDILOL 3.125 MG TABLET PO SCH ×2 (11:52→16:48)
[2017-10-01] MEDS: AMLODIPINE BESYLATE 10 MG TABLET PO SCH (14:35)
[2017-10-01] MEDS: TOBRAMYCIN 80 MG in IV D5W 50 ML IV PRN (16:46)
--- NOTE | 2017-10-01 18:39 | NUR ---
MOTORCOACH OPERATOR END NOTES PATIENT LAYING IN BED, ALL NEEDS ATTENDED TO, BED BATH GIVEN, PATIENT FOUND WITH BRUISING ON RIGHT SIDE OF BACK, POSSIBLY DUE TO HEPARIN, PICTURE TAKEN, CHARGE NURSE MADE AWARE WILL ENDORSE TO BIODIESEL PROCESS CONTROL TECHNICIAN, BED IN LOW AND LOCKED POSITION, CALL LIGHT WITHIN REACH.
[2017-10-01 20:00] VITALS: BP 189/92
--- NOTE | 2017-10-01 20:00 | NUR ---
INITIAL RN NOTES PATIENT LAYING IN BED, ALL NEEDS ATTENDED TO BY RN.BED IN LOW AND LOCKED POSITION, CALL LIGHT WITHIN REACH. RN WILL CONTINUE TO ASSESS.
[2017-10-01] MEDS: DOCUSATE SODIUM 100 MG CAPSULE PO SCH (21:26)
[2017-10-01] MEDS: TAMSULOSIN 0.4 MG CAP.SR.24H PO SCH (21:26)
[2017-10-01] MEDS: ATORVASTATIN 10 MG TABLET PO SCH (21:26)
[2017-10-01] MEDS: DONEPEZIL 5 MG TABLET PO SCH (21:29)
[2017-10-02] MEDS: MEROPENEM 500 MG in IV NS 0.9% 50 ML IV SCH ×2 (02:34→15:16)
[2017-10-02 04:00] VITALS: BP 119/83
[2017-10-02 06:33] LABS: BASOPHILS % (AUTO) 0.2 % (0.0-2.0); EOSINOPHILS % (AUTO) 0.3 % (0.0-6.0); HEMATOCRIT 33 % (39-51); HEMOGLOBIN 10.8 g/dL (13.5-17.5); LYMPHOCYTES # (AUTO) 1.2 /CMM (0.8-4.8); LYMPHOCYTES % (AUTO) 10.1 % (20.0-44.0); MEAN CORPUSCULAR HEMOGLOBIN 28 PG (26.0-33.0); MEAN CORPUSCULAR HGB CONC 33 g/dl (31.0-36.0); MEAN CORPUSCULAR VOLUME 85 fL (80-96); MONOCYTES # (AUTO) 0.7 /CMM (0.1-1.30); MONOCYTES % (AUTO) 6.3 % (2.0-12.0); NEUTROPHILS # (AUTO) 9.6 /CMM (1.8-8.9); NEUTROPHILS % (AUTO) 83.1 % (43.0-81.0); PLATELET COUNT (AUTO) 220 /CMM (150-450); RDW COEFFICIENT OF VARIATION 16.3 (11.5-15.0); RED BLOOD CELL COUNT(AUTO) 3.85 MIL/uL (4.5-6.0); WHITE BLOOD COUNT (AUTO) 11.6 K/uL (4.3-11.0)
--- NOTE | 2017-10-02 07:00 | NUR ---
RN CLOSING NOTES, PATIENT IN BED ASLEEP AT THIS TIME, BREATHING EVEN AND UNLABORED, NO S/S OF DISCOMFORT, PAIN , SOB OR ACUTE DISTRESS NOTED AT THIS TIME, BED LOCKED AND IN LOWEST POSITION, KARTHIK LIGHT W/I REACH. WILL ENDORSE CONTINUITY OF CARE TO NEXT NURSE.
[2017-10-02 07:09] LABS: CARBON DIOXIDE 28 mmol/L (21-32); CHLORIDE 104 mmol/L (98-107); CREATININE 4.5 mg/dL (0.6-1.3); GLUCOSE 85 mg/dL (74-106); MAGNESIUM 1.8 mg/dL (1.8-2.4); PHOSPHORUS 2.5 mg/dL (2.5-4.9); POTASSIUM 4.5 mmol/L (3.5-5.1); SODIUM SERUM 141 mmol/L (136-145); UREA NITROGEN, BLOOD 57 mg/dL (7-18)
[2017-10-02 08:00] VITALS: BP 105/69
--- NOTE | 2017-10-02 08:30 | NUR ---
Received pt in bed with eyes open, nonverbal, hl to R hand, f/c in place drainign yellow urine , no s/s of distress, call light in reach.
--- NOTE | 2017-10-02 08:30 | NUR ---
bilateral pedal edema noted bilateral foot elevated and reposition. Addendum: 10/02/17 at 1802 by CAMILLE ABREU RN Amended: Links added.
[2017-10-02] MEDS: RENAL NOVASOURCE (8OZ) 1 EA BOX PO SCH (09:00)
[2017-10-02] MEDS: LamoTRIgine 25 MG TABLET PO SCH (09:50)
[2017-10-02] MEDS: ALLOPURINOL 100 MG TABLET PO SCH (09:51)
[2017-10-02] MEDS: SUCRALFATE 1 G/10 ML UDC PO SCH ×4 (09:51→21:45)
[2017-10-02] MEDS: FOLIC ACID 1 MG TABLET PO SCH (09:51)
[2017-10-02] MEDS: LACTOBACILLUS RHAMNOSUS GG 1 EACH CAP.SPRINK PO SCH ×2 (09:51→17:31)
[2017-10-02] MEDS: MEGESTROL ACETATE SUSP 400 MG/10 ML UDC PO SCH ×2 (09:51→17:32)
[2017-10-02] MEDS: ENALAPRIL MALEATE (10 MG) 10 MG TABLET PO SCH (09:54)
[2017-10-02] MEDS: CITALOPRAM HYDROBROMIDE 20 MG TABLET PO SCH (09:55)
[2017-10-02] MEDS: HEPARIN SODIUM, PORCINE 5000 UNITS/1 ML VIAL SQ SCH ×2 (10:00→21:47)
[2017-10-02] MEDS: Z GUARD REMEDY 2 OZ OINT TP SCH (10:07)
--- NOTE | 2017-10-02 12:07 | NUR ---
Pt in bed reposition for comfort, f/c draning yellow urine, no s/s complications, no distress, no dialysis today, pos tolerated well.
[2017-10-02] MEDS: CARVEDILOL 3.125 MG TABLET PO SCH ×2 (13:38→17:32)
[2017-10-02 15:28] VITALS: BP 105/69
[2017-10-02 15:36] VITALS: BP 131/78
--- NOTE | 2017-10-02 17:17 | NUR ---
Received a call from Nathaniel and recomendation received and Dr Mccormick was called to gat orders for recomendation to change diet to gita soft and nephro vit 1 tab daily awaiting for md to call back.
--- NOTE | 2017-10-02 17:56 | NUR ---
End RN notes: pt in bed awake with eyes open, repositioned for comfort, tx to coccix area and lateral L hip done, F/c in place draining small amount of urine, requires to be feed, no distress
[2017-10-02 20:00] VITALS: BP 102/83
[2017-10-02] MEDS: DONEPEZIL 5 MG TABLET PO SCH (21:47)
[2017-10-02] MEDS: DOCUSATE SODIUM 100 MG CAPSULE PO SCH (21:48)
[2017-10-02] MEDS: TAMSULOSIN 0.4 MG CAP.SR.24H PO SCH (21:48)
[2017-10-02] MEDS: ATORVASTATIN 10 MG TABLET PO SCH (21:48)
[2017-10-03] MEDS: MEROPENEM 500 MG in IV NS 0.9% 50 ML IV SCH ×2 (03:52→14:30)
[2017-10-03 04:00] VITALS: BP 140/71
[2017-10-03 08:00] VITALS: BP 106/70
--- NOTE | 2017-10-03 08:30 | NUR ---
RN nurse notes: Received pt in bed eyes closed, no s/s of pain, no sob, F/C in place drainong small amount of dark brownish urine, reposition for comfort, no distress.
[2017-10-03] MEDS: LACTOBACILLUS RHAMNOSUS GG 1 EACH CAP.SPRINK PO SCH (09:29)
[2017-10-03] MEDS: FERROUS SULFATE (325 MG) 325 MG/TAB TABLET PO SCH (09:30)
[2017-10-03] MEDS: LamoTRIgine 25 MG TABLET PO SCH (09:30)
[2017-10-03] MEDS: MEGESTROL ACETATE SUSP 400 MG/10 ML UDC PO SCH (09:30)
[2017-10-03] MEDS: SUCRALFATE 1 G/10 ML UDC PO SCH ×2 (09:30→14:30)
[2017-10-03] MEDS: FOLIC ACID 1 MG TABLET PO SCH (09:30)
[2017-10-03] MEDS: ALLOPURINOL 100 MG TABLET PO SCH (09:31)
[2017-10-03] MEDS: CITALOPRAM HYDROBROMIDE 20 MG TABLET PO SCH (09:32)
[2017-10-03] MEDS: CARVEDILOL 3.125 MG TABLET PO SCH (09:32)
[2017-10-03] MEDS: Z GUARD REMEDY 2 OZ OINT TP SCH (09:34)
[2017-10-03] MEDS: HEPARIN SODIUM, PORCINE 5000 UNITS/1 ML VIAL SQ SCH (09:34)
[2017-10-03] MEDS: RENAL NOVASOURCE (8OZ) 1 EA BOX PO SCH (09:35)
[2017-10-03] MEDS ORDERED: TOBR40VI2 IM/IV (11:19)
[2017-10-03] MEDS ORDERED: MERO500V IV (11:19)
--- NOTE | 2017-10-03 12:27 | NUR ---
RN notes, earlier received a call from [facility] that pt will be dc today to halfway later she call abck again and asked to hold dc d/t facility not ready for him, CN aware.
--- NOTE | 2017-10-03 13:45 | NUR ---
Rn notes: pt will be transfer to [facility] by [facility], so report was called to EMANUEL Luque, at [facility].
[2017-10-03] MEDS: ENALAPRIL MALEATE (10 MG) 10 MG TABLET PO SCH (14:28)
[2017-10-03 15:00] VITALS: BP 93/53
[2017-10-03] MEDS: AMLODIPINE BESYLATE 10 MG TABLET PO SCH (15:00)
--- NOTE | 2017-10-03 15:30 | NUR ---
RN notes: ambulance here to fruit picker machine operator pt, report given to ambulance staff, at discharge pt in awake, alert , oriented x1, nonverbal, f/c in place and hl to R wrist #20 G, dressing to all wound were changed as well of pictures taken, pt has nonproductive cough but lungs clear, all pt's info send as well as med reconciliation, merren dose was given, tobramycin was not given med not avaliable.
== END 2017-10-03 16:00 | DRG 853 ==
LOC: ER 15:50 → TELE1 17:55 → MEDSG1 09-26 09:59 → TELE1 09-26 21:50 → MEDSG1 09-27 10:00
PROVIDERS: ADMIT Nurse Practitioner Acute Care; ATTEND Nurse Practitioner Acute Care
PROC: 30233N1 Transfusion of Nonautologous Red Blood Cells into Peripheral Vein, Percutaneous Approach (ICD-10-PCS; 2017-09-24)
PROC: 0KBP0ZZ Excision of Left Hip Muscle, Open Approach (ICD-10-PCS; principal; 2017-09-25)
PROC: 5A1D70Z Performance of Urinary Filtration, Intermittent, Less than 6 Hours Per Day (ICD-10-PCS; 2017-09-25)
DX: A41.9 Sepsis, unspecified organism (principal); I21.4 Non-ST elevation (NSTEMI) myocardial infarction; E43 Unspecified severe protein-calorie malnutrition; I13.2 Hypertensive heart and chronic kidney disease with heart failure and with stage 5 chronic kidney disease, or end stage renal disease; L89.154 Pressure ulcer of sacral region, stage 4; G93.49 Other encephalopathy; R53.2 Functional quadriplegia; E11.22 Type 2 diabetes mellitus with diabetic chronic kidney disease; L89.313 Pressure ulcer of right buttock, stage 3; N18.6 End stage renal disease; I50.32 Chronic diastolic (congestive) heart failure; N39.0 Urinary tract infection, site not specified; R65.20 Severe sepsis without septic shock; Z99.2 Dependence on renal dialysis; Z87.11 Personal history of peptic ulcer disease; Z86.73 Personal history of transient ischemic attack (TIA), and cerebral infarction without residual deficits; Z79.899 Other long term (current) drug therapy; Z66 Do not resuscitate; M10.9 Gout, unspecified; N40.0 Benign prostatic hyperplasia without lower urinary tract symptoms; E03.9 Hypothyroidism, unspecified; Z98.890 Other specified postprocedural states; Z91.09 Other allergy status, other than to drugs and biological substances; D63.8 Anemia in other chronic diseases classified elsewhere; I25.10 Atherosclerotic heart disease of native coronary artery without angina pectoris; F01.50 Vascular dementia, unspecified severity, without behavioral disturbance, psychotic disturbance, mood disturbance, and anxiety; I71.4 Abdominal aortic aneurysm, without rupture; E78.5 Hyperlipidemia, unspecified; K59.00 Constipation, unspecified; L89.519 Pressure ulcer of right ankle, unspecified stage; L89.899 Pressure ulcer of other site, unspecified stage; L89.621 Pressure ulcer of left heel, stage 1; L89.611 Pressure ulcer of right heel, stage 1; E83.42 Hypomagnesemia; K21.9 Gastro-esophageal reflux disease without esophagitis; B96.89 Other specified bacterial agents as the cause of diseases classified elsewhere
CPT/HCPCS: 36415; 71010-TC; 80048-TC; 80053-TC; 80061-TC; 80076-TC; 80202-TC; 81000-TC; 82962-TC; 83605-TC; 83735-TC; 84100-TC; 84443-TC; 84484-TC; 85025-TC; 85730-TC; 86850-TC; 86921-TC; 87040-TC; 87081-TC; 87086-TC; 87186-TC; 90935-TC; A4216; A4217; A6402; A6403; J0692; J0885; J1644; J1650; J2185; J3260; J3370; J7030; J7050; J7060; P9016-BL

== ENCOUNTER 2017-12-15 14:06 | Inpatient (IN) | payer MEDICARE, MEDICAID ==
[~2017-12-15] VITALS: Ht 167.6 cm; Wt 56.2 kg
[~2017-12-15 14:06] MED LIST changes: +BISA10SU8 RC; +BLOO-668 IN; +CARV3.122 PO; -CEFT1VIA15 IV; -CIPR250T4 PO; +CRAN450C PO; +DOCU-141 PO; +FERR325T23 PO; +FOLI1TAB16 PO; +MAGN400O6 PO; +MEGE400O PO; -MEGE40TA PO; +MERO500V IV; -METR500T PO; +NA P133E RC; +NUT.237L67 PO; -PANT40TA2 PO; -SUCR1ORA2 PO; +SUCR1ORA4 PO; +TOBR40VI2 IM/IV
--- NOTE | 2017-12-15 14:40 | NUR ---
PT BIB PA WITH A C/O NEED TO R/O OSTEOMYLITIS OF ILIOSACRAL WOUND. PT IS NON VERBAL, BUT IS ABLE TO GRIMACE WHEN MOVED. PT HAS MONET CATH SPOT CHECKER. URINE IN BAG IS CLOUDY. PT IS ON THE MONITOR AND CONTINUOUS PULSE OX. PT HAS BUE AND BLE CONTRACTURES. WOUND ON BLE AND BUE NOTED. LARGE ILIOSACRAL WOUND WITH BANDAGE AND PACKING NOTED. PILLOW PLACED BETWEEN BOTH LEGS AND UNDER LEFT LEG AND ANKLE. PT HAS LUE FISTULA AND LFA AV SHUNT.
--- NOTE | 2017-12-15 14:48 | NUR ---
REMOVED OLD MONET CATH AND INSERTED NEW MONET. APPROX 15 ML CLOUDY YELLOW URINE OUTPUT NOTED WITH SEDIMENT. SAMPLE SENT TO LAB.
[2017-12-15] MEDS ORDERED: IV NS 0.9% 1,000 ML BAG IV ONE (15:00)
[2017-12-15] MEDS ORDERED: CLINDAMYCIN 600 MG in IV D5W 100 ML IV ONE (15:00)
[2017-12-15] MEDS ORDERED: VANCOMYCIN 1 GM in IV D5W 250 ML IV ONE (15:00)
[2017-12-15 15:02] LABS: CALCIUM, SERUM 8.9 mg/dL (8.5-10.1); CARBON DIOXIDE 35 mmol/L (21-32); CHLORIDE 100 mmol/L (98-107); CREATININE 2.9 mg/dL (0.6-1.3); GLUCOSE 133 mg/dL (74-106); INR 1.06 (0.87-1.13); SODIUM SERUM 141 mmol/L (136-145); UREA NITROGEN, BLOOD 53 mg/dL (7-18)
--- NOTE | 2017-12-15 15:04 | NUR ---
XRAY IN PROGRESS AT THE BEDSIDE.
[2017-12-15 15:09] LABS: ALANINE AMINOTRANSFERASE 37 U/L (12-78); ALBUMIN 1.5 g/dL (3.4-5.0); ALKALINE PHOSPHATASE 132 U/L (46-116); ASPARTATE AMINOTRANSFERASE 28 U/L (15-37); BILIRUBIN,DIRECT 0.1 mg/dL (0.0-0.2); BILIRUBIN,TOTAL 0.2 mg/dL (0.2-1.0); TOTAL PROTEIN, SERUM 5.9 g/dL (6.4-8.2)
[2017-12-15 15:14] LABS: BASOPHILS % (AUTO) 0.1 % (0.0-2.0); EOSINOPHILS # (AUTO) 0.1 /CMM (0.0-0.7); EOSINOPHILS % (AUTO) 0.4 % (0.0-6.0); HEMATOCRIT 25 % (39-51); HEMOGLOBIN 7.7 g/dL (13.5-17.5); LYMPHOCYTES # (AUTO) 1.2 /CMM (0.8-4.8); LYMPHOCYTES % (AUTO) 8.3 % (20.0-44.0); MEAN CORPUSCULAR HEMOGLOBIN 26 PG (26.0-33.0); MEAN CORPUSCULAR HGB CONC 31 g/dl (31.0-36.0); MEAN CORPUSCULAR VOLUME 82 fL (80-96); MONOCYTES # (AUTO) 0.3 /CMM (0.1-1.30); MONOCYTES % (AUTO) 2.3 % (2.0-12.0); NEUTROPHILS # (AUTO) 13.2 /CMM (1.8-8.9); NEUTROPHILS % (AUTO) 88.9 % (43.0-81.0); PLATELET COUNT (AUTO) 338 /CMM (150-450); RDW COEFFICIENT OF VARIATION 19.8 (11.5-15.0); RED BLOOD CELL COUNT(AUTO) 3.02 MIL/uL (4.5-6.0); WHITE BLOOD COUNT (AUTO) 14.9 K/uL (4.3-11.0)
[2017-12-15 15:15] LABS: APPEARANCE,URINE SL CLOUDY (CLEAR); BILIRUBIN,URINE NEGATIVE (NEGATIVE); BLOOD, URINE 3+ Ery/uL (NEGATIVE); COLOR,URINE YELLOW (YELLOW); KETONES,URINE NEGATIVE (NEGATIVE); LEUKOCYTE ESTERASE ,URINE 3+ (NEGATIVE); NITRITE, URINE NEGATIVE (NEGATIVE); PROTEIN,URINE 2+ mg/dl (NEGATIVE); UGLUCOSE NEGATIVE (NEGATIVE); UROBILINOGEN,URINE 0.2 EU/dL (0.2)
[2017-12-15 15:15] LABS: TROPONIN I < 0.017 ng/mL (0.00-0.056)
[2017-12-15 15:23] LABS: BACTERIA,URINE Moderate /HPF (None Seen); SQUAMOUS EPITHELIAL CELL,UR Rare /HPF (None Seen); WBC,URINE 81-100 /HPF (0-3)
[2017-12-15] MEDS ORDERED: LEVOFLOXACIN 500 MG /D5W 100ML 500 MG/100 ML PIGGYBACK IV ONE ×2 (16:00→18:00)
[2017-12-15] MEDS ORDERED: ACETAMINOPHEN 650 MG/SUPP.RECT RC PRN ×2 (16:00→16:30)
--- NOTE | 2017-12-15 16:03 | NUR ---
MS 313.2
--- NOTE | 2017-12-15 16:04 | NUR ---
PAGED EPIC FOR PANEL
--- NOTE | 2017-12-15 16:15 | NUR ---
REPORT GIVEN TO EMANUEL RANDOLPH
--- NOTE | 2017-12-15 16:40 | NUR ---
DRAFTER ELECTRONIC NOTE RECEIVED PT. PT IS STABLE AND RESTING IN BED. NO S/S OF RESP DISTRESS OR SOB. PT DOES NOT APPEAR TO BE IN PAIN. PT HAS SEVERAL DECUBITIS ULCERS THROUGHOUT BILATERAL UPPER AND LOWER EXTREMITIES, SACRUM AND RIGHT BUTTOCKS. PHOTOS TAKEN AND PLACED IN CHART. SAFETY MEASURES IN PLACE, CALL LIGHT IN REACH. WILL CONTINUE TO MONITOR.
[2017-12-15 16:50] VITALS: BP 132/59
[2017-12-15] MEDS ORDERED: ALBUTEROL FS 2.5 MG/0.5 ML VIAL.NEB NEB PRN (18:00)
[2017-12-15] MEDS ORDERED: FEE PK DOSING 1 MIN EA MC ONE (18:13)
--- NOTE | 2017-12-15 19:26 | NUR ---
RN CLOSING NOTES PT IN BED RESTING. NO S/S OF SOB OR RESP DISTRESS. SEPSIS PROTOCOL OF 1600 ML NS COMPLETED. SEPSIS REASSESSMENT COMPLETED. RECEIVEED CALL FROM LAB REGARDING LACTIC ACID OF 2.5. DR. Best FROM [employer] CONTACTED TO REPORT REASSESSMENT AND LACTIC ACID. ENDORSED TO ICU CLERK EMANUEL TOVAR TO REPORT ONCE CALL IS RETURNED. LEVAQUIN NOT ADMINISTERED AT 1800 DUE TO UNAVAILABILITY, CONTACTED PHARMACY TO DELIVER MED FOR ADMIN. SAFETY MEASURES IN PLACE. CALL LIGHT IN REACH. ENDORSED TO ICU CLERK FOR JOSE.
--- NOTE | 2017-12-15 19:56 | NUR ---
MS/RN RECEIVE PATIENT IN BED APPEAR SLEEPING, EASILY AROUSABLE, APPEAR COMFORTABLE, NO SIGNS OF DISTRESS NOTED, CALL LIGHT IN REACH. FALL PRECAUTION PER PROTOCOL. WILL MONITOR.
[2017-12-15 20:00] VITALS: BP 124/61
--- NOTE | 2017-12-16 06:25 | NUR ---
MS/RN URINE SPECIMEN WAS OBTAINED ORDERED FROM F/C. SENT TO LAB.
--- NOTE | 2017-12-16 06:26 | NUR ---
MS/RN PATIENT IS AWAKE AT THIS TIME, APPEAR COMFORTABLE, NO SIGNS OF DISTRESS NOTED. ALL NEEDS ATTENDED AT THIS TIME. WILL CONTINUE TO MONITOR.
[2017-12-16 07:27] LABS: CREATININE, URINE 42.1 MG/DL (30.0-125.0)
--- NOTE | 2017-12-16 07:45 | NUR ---
MS/RN OPENING NOTE PATIENT IN BED IN STABLE CONDITION. A/O X 1, NON VERBAL. NO SIGNS OF ACUTE DISTRESS. NO COMPLAIN OF PAIN OR DISCOMFORT. ALL NEEDS ATTENDED TO. CALL LIGHT WITHIN REACH. WILL CONTINUE TO MONITOR TO ENSURE SAFETY.
[2017-12-16 08:00] VITALS: BP 120/46
--- NOTE | 2017-12-16 08:23 | NUR ---
MS/RN SPOKE WITH DR PROCTOR SPOKE WITH DR PROCTOR AND REQUESTED REGARDING PATIENT MED RECON. NEEDS TO BE DONE. ALSO MADE AWARE, PATIENT IS HEMODIALYSIS PATIENT WITH SCHEDULE OF , , FRI AND THERE IS NO NEPHRO CONSULT. PER DR PROCTOR HE WILL TAKE A LOOK AND PUT IN ORDERS AND WILL DO MED RECON.
[2017-12-16] MEDS ORDERED: POTASSIUM CHLORIDE 20 MEQ POWDER PACKET NG SCH (10:00)
[2017-12-16] MEDS ORDERED: Potassium Chloride 10 MEQ in IV D5W 50 ML IV SCH (10:30)
--- NOTE | 2017-12-16 11:03 | NUR ---
MS/RN SEEN BY DR ABREU PATIENT SEEN AND EXAMINED BY DR ABREU AND MADE AWARE PATIENT HAS AN ORDER FOR POTASSIUM TO BE REPLACE SECONDARY TO POTASSIUM 3.0. [address] ABREU NOT TO ADMINISTER POTASSIUM, PATIENT IS SCHEDULE FOR DIALYSIS TODAY AND DIALYSIS NURSE WILL REPLACE IT NEEDED. THEREFORE POTASSIUM ORDER WAS DISCONTINUED.
[2017-12-16 16:00] VITALS: BP 96/46
[2017-12-16] MEDS ORDERED: VANCOMYCIN 500 MG in IV D5W 100 ML IV SCH (16:00)
[2017-12-16] MEDS ORDERED: Medication Not On Formulary EA (Cranberry Fruit Concentrate (Cranberry) 450 MG) PO SCH (17:30)
[2017-12-16] MEDS ORDERED: MAGNESIUM HYDROXIDE 30 ML UDC PO PRN (17:30)
[2017-12-16] MEDS ORDERED: NA PHOS,M-B/NA PHOS,DI-BA 1 EA ENEMA RC PRN (17:30)
[2017-12-16] MEDS ORDERED: BISACODYL SUPP (10 MG) 10 MG/SUPP.RECT SUPP.RECT RC PRN (17:30)
[2017-12-16] MEDS: CARVEDILOL 3.125 MG TABLET PO SCH (18:00)
--- NOTE | 2017-12-16 18:37 | NUR ---
MS/RN CLOSING NOTE PATIENT IN BED IN STABLE CONDITION. A/O X 1, NON VERBAL. NO SIGNS OF ACUTE DISTRESS. NO COMPLAIN OF PAIN OR DISCOMFORT. ALL NEEDS ATTENDED TO. CALL LIGHT WITHIN REACH. WILL ENDORSE TO NEXT SHIFT FOR CONTINUITY OF CARE.
--- NOTE | 2017-12-16 19:15 | NUR ---
RN OPENING NOTE RECEIVED REPORT FROM AM SHIFT, PATIENT IN BED, AWAKE, NON VERBAL WITH EYES OPEN, NOTED WITH NO SOB, BREATHING EVEN AND UNLABORED, NOTED WITH NO FACIAL GRIMACING,IN NO ACUTE DISTRESS. ALL PATIENT'S NEEDS ATTENDED TO AT THIS TIME. PLACED BED IN LOW POSITION AND LOCKED IN PLACE. WILL CONTINUE TO MONITOR PT.
[2017-12-16] MEDS ORDERED: LIDOCAINE 1%-EPI 1:100,000 20 ML VIAL TP ONE (19:30)
[2017-12-16] MEDS: DAKINS QUARTER STRENGTH (0.125%) 480 ML BOTTLE TOP SCH (19:30)
[2017-12-16] MEDS ORDERED: SILVER NITRATE APPLICATOR 1 EA BOX TP SCH (19:30)
[2017-12-16 20:00] VITALS: BP 127/57
[2017-12-16] MEDS ORDERED: FEE PK DOSING 1 MIN EA MC ONE (20:18)
[2017-12-16] MEDS ORDERED: DOSING PER PHARMACY-AMIKACI IV XX PRN (20:30)
[2017-12-16] MEDS: VANCOMYCIN 500 MG in IV D5W 100 ML IV PRN (20:41)
[2017-12-16] MEDS ORDERED: AMIKACIN IV ONE (21:00)
[2017-12-16] MEDS ORDERED: D5W IV ONE (21:00)
[2017-12-16] MEDS: DONEPEZIL 5 MG TABLET PO SCH (21:52)
[2017-12-16] MEDS: ATORVASTATIN 10 MG TABLET PO SCH (21:52)
[2017-12-16] MEDS ORDERED: DOCUSATE SODIUM 100 MG CAPSULE PO SCH (22:00)
[2017-12-16] MEDS ORDERED: DOCUSATE SODIUM LIQ 100 MG/10 ML UDC PO ONE (22:30)
--- NOTE | 2017-12-17 02:10 | NUR ---
RN CLOSING NOTE PT IN BED, IN STABLE CONDITION. GAVE REPORT TO IZZY PATEL FOR CONTINUITY OF CARE.
--- NOTE | 2017-12-17 02:15 | NUR ---
MS IZZY INITIAL NOTES' RECEIVED REPORT FROM ANOTHER NURSE FOR CONTINUITY OF CARE. SEEN PT IN BED AWAKE BUT NON VERBAL , BREATHING EVEN AND UN-LABORED NOT IN ANY ACUTE DISTRESS NOTED. ON SEMI FOWLERS POSITION FOR ASPIRATION PRECAUTION. SKIN WARM AND DRY TO TOUCH NOTED MULTIPLE SKIN TEAR ON BOTH ARMS. MONET TO GRAVITY . KEPT HIM WARM AND COMFORTABLE AT ALL TIMES. PLACE CALL LIGHT WITHIN REACH. WILL CONTINUE TO MONITOR.
--- NOTE | 2017-12-17 07:10 | NUR ---
MS RN OPENING NOTES RECEIVED PT FROM [facility] NURSE IN STABLE CONDITION. PT IS NONVERBAL, RESPONSIVE TO LIGHT TOUCH, AND OPENS HIS EYES SPONTANEOUSLY. NO SOB OR SIGNS OF DISTRESS NOTED. MULTIPLE WOUNDS NOTED. WILL COMPLETE WOUND AND SKIN CARE MANAGEMENT ORDERED. MONET CATHETER NOTED TO BE DRAINING CLEAR YELLOW URINE. IV NOTED TO RIGHT WRIST 20G. IV IS PATENT AND INTACT. NO REDNESS OR SIGNS OF INFILTRATION NOTED. BED IN LOW LOCKED POSITION, SIDE RAILS UP X3, CALL LIGHT WITHIN REACH, BED ALARM ON. WILL CONTINUE TO MONITOR.
[2017-12-17 07:25] LABS: CALCIUM, SERUM 8.6 mg/dL (8.5-10.1); CARBON DIOXIDE 32 mmol/L (21-32); CHLORIDE 99 mmol/L (98-107); CREATININE 2.1 mg/dL (0.6-1.3); GLUCOSE 78 mg/dL (74-106); POTASSIUM 3.5 mmol/L (3.5-5.1); SODIUM SERUM 139 mmol/L (136-145); UREA NITROGEN, BLOOD 29 mg/dL (7-18); VANCOMYCIN,RANDOM 21 ug/ml (18-26)
--- NOTE | 2017-12-17 07:32 | NUR ---
MS BELL TIER CLOSING NOTES PT RESTING AFTER MORNING CARE DONE, NO SIGNS OF ANY ACUTE DISTRESS NOTED. STABLE TOR THE NIGHT. RESPIRATION EVEN AND NON-LABORED. MONET TO GRAVITY. REPOSITION HIM FOR COMFORT. KEPT HIM WARM AND COMFORTABLE AT ALL TIMES. ENDORSE TO AM NURSE FOR CONTINUITY OF CARE. SAFETY PRECAUTION IMPLEMENTED AND OBSERVED. ENDORSE TO AM NURSE THAT MATERIALS FOR I &D PROCEDURE AT THE PT DRAWERS AND CONSENT SIGNED.
[2017-12-17 08:00] VITALS: BP 125/62
[2017-12-17] MEDS: DAKINS QUARTER STRENGTH (0.125%) 480 ML BOTTLE TOP SCH ×2 (08:49→19:45)
[2017-12-17] MEDS: MEGESTROL ACETATE SUSP 400 MG/10 ML UDC PO SCH ×2 (08:49→17:15)
[2017-12-17] MEDS: FOLIC ACID 1 MG TABLET PO SCH (08:49)
[2017-12-17] MEDS: SUCRALFATE 1 G/10 ML UDC PO SCH (08:49)
[2017-12-17] MEDS: ZINC SULFATE 220 MG CAPSULE PO SCH (08:49)
[2017-12-17] MEDS: CARVEDILOL 3.125 MG TABLET PO SCH ×2 (08:50→17:16)
[2017-12-17] MEDS: ENALAPRIL MALEATE (10 MG) 10 MG TABLET PO SCH (08:50)
[2017-12-17] MEDS: LamoTRIgine 25 MG TABLET PO SCH (08:51)
[2017-12-17] MEDS: TAMSULOSIN 0.4 MG CAP.SR.24H PO SCH (08:51)
[2017-12-17] MEDS: ALLOPURINOL 100 MG TABLET PO SCH (08:51)
[2017-12-17] MEDS: CITALOPRAM HYDROBROMIDE 20 MG TABLET PO SCH (08:51)
[2017-12-17] MEDS ORDERED: SUCRALFATE 1 G/10 ML UDC PO SCH (09:00)
[2017-12-17] MEDS ORDERED: NEPRO VAN 237 ML CAN PO SCH (09:00)
--- NOTE | 2017-12-17 09:08 | NUR ---
WOUND CARE CONSULT: PT FOLLOWED BY SURGICAL TEAM FOR WOUNDS. DEFER TO SURGICAL TEAM FOR WOUND TREATMENT PLAN. PT ON ROSA ISOFLEX LOW AIRLOSS BED. ALL SKIN PROTECTION MEASURES IN PLACE AND DISCUSSED WITH NURSING STAFF. CURRENT EDELMIRA SCORE IS 10. MD IN AGREEMENT WITH PLAN OF CARE.
[2017-12-17 10:31] LABS: IRON, SERUM 22 ug/dl (50-175); TOTAL IRON BINDING CAPACITY 70 ug/dl (250-450)
[2017-12-17 10:44] LABS: FERRITIN 1555 ng/mL (8-388)
--- NOTE | 2017-12-17 14:36 | NUR ---
MS RN NOTES DR. PROCTOR MADE AWARE OF PT'S AMIKACIN LEVEL AND THAT PT IS NOW POSITIVE FOR MRSA PER BLOOD CX RESULTS. NO NEW ORDERS OF NOW. WILL CONTINUE TO MONITOR
--- NOTE | 2017-12-17 15:06 | NUR ---
MS RN NOTES PT TAKEN DOWN TO CT IN STABLE CONDITION
--- NOTE | 2017-12-17 15:23 | NUR ---
MS RN NOTES PT BACK FROM CT IN STABLE CONDITION. WILL AWAIT RESULTS
[2017-12-17 16:00] VITALS: BP_SYST 118; BP_SYST 125; BP_DIAS 62; BP_DIAS 68
[2017-12-17] MEDS ORDERED: MULTIVITAMINS,THERAGRAN 1 UDTAB TABLET PO SCH (17:00)
[2017-12-17] MEDS ORDERED: PROSOURCE / PROSTAT (PYXIS) 30 ML UDC PO SCH (17:00)
[2017-12-17] MEDS: PROSOURCE / PROSTAT (PYXIS) 30 ML UDC GT SCH (17:13)
[2017-12-17] MEDS: ASCORBIC ACID 500 MG TABLET PO SCH (17:15)
[2017-12-17] MEDS: LACTOBACILLUS RHAMNOSUS GG 1 EACH CAP.SPRINK PO SCH (17:15)
[2017-12-17] MEDS: VIT B CMPLX 3/FA/VIT C/BIOTIN 1 TAB TABLET PO SCH (17:15)
[2017-12-17] MEDS: AMLODIPINE BESYLATE 10 MG TABLET PO SCH (17:15)
[2017-12-17] MEDS: RENAL NOVASOURCE (8OZ) 1 EA BOX PO SCH (17:21)
--- NOTE | 2017-12-17 18:11 | NUR ---
MS RN CLOSING NOTES PT REMAINS IN STABLE CONDITION. ALL NEEDS ANTICIPATED FOR AND MET THROUGHOUT SHIFT. ALL DUE MED.S GIVEN. METICULOUS WOUND AND SKIN CARE RENDERED ORDERED. PT WAS REPOSITIONED PER HOSPITAL PROTOCOL. HE WAS KEPT CLEAN AND DRY THROUGHOUT SHIFT. VITALS REMAIN STABLE. WILL ENDORSE TO NIGHTSHIFT NURSE FOR JOSE
[2017-12-17] MEDS ORDERED: D5W IV PRN (19:00)
[2017-12-17] MEDS ORDERED: AMIKACIN IV PRN (19:00)
--- NOTE | 2017-12-17 19:10 | NUR ---
RN NOTE RECEIVED PT IN BED, EYES OPEN. REMAINS TO BE NON VERBAL, NO SOB NOTED, BREATHING EVEN AND UNLABORED, NO FACIAL GRIMACING, IN NO ACUTE DISTRESS. ALL PATIENT'S NEEDS ATTENDED TO AT THIS TIME. WILL CONTINUE TO MONITOR.
[2017-12-17] MEDS: MEROPENEM 500 MG in IV NS 0.9% 50 ML IV SCH (19:45)
[2017-12-17 20:06] VITALS: BP 120/53
[2017-12-17] MEDS: DOCUSATE SODIUM LIQ 100 MG/10 ML UDC PO SCH (21:14)
[2017-12-17] MEDS: DONEPEZIL 5 MG TABLET PO SCH (21:14)
[2017-12-17] MEDS: ATORVASTATIN 10 MG TABLET PO SCH (21:15)
[2017-12-18] MEDS: MEROPENEM 500 MG in IV NS 0.9% 50 ML IV SCH ×2 (06:19→21:10)
--- NOTE | 2017-12-18 06:42 | NUR ---
RN CLOSING NOTE PATIENT IN BED, IN STABLE CONDITION AND IN NO ACUTE DISTRESS AT THIS TIME. ALL PATIENT'S NEEDS ATTENDED TO THROUGHOUT THE SHIFT. REPOSITIONED Q2 HOURS, ALL DUE MEDICATION GIVEN, WILL ENDORSE TO AM SHIFT NURSE FOR CONTINUITY OF CARE.
--- NOTE | 2017-12-18 07:05 | NUR ---
MS RN OPENING NOTES RECEIVED PT FROM TAX ASSOCIATE ATTORNEY NURSE IN STABLE CONDITION. PT IS NONVERBAL, RESPONSIVE TO LIGHT TOUCH, AND OPENS HIS EYES SPONTANEOUSLY. NO SOB OR SIGNS OF DISTRESS NOTED. MULTIPLE WOUNDS NOTED. WILL COMPLETE WOUND AND SKIN CARE MANAGEMENT ORDERED. MONET CATHETER NOTED TO BE DRAINING CLEAR YELLOW URINE. IV NOTED TO RIGHT WRIST 20G. IV IS PATENT AND INTACT. NO REDNESS OR SIGNS OF INFILTRATION NOTED. BED IN LOW LOCKED POSITION, SIDE RAILS UP X3, CALL LIGHT WITHIN REACH, BED ALARM ON. WILL CONTINUE TO MONITOR.
[2017-12-18 08:00] VITALS: BP 87/47
[2017-12-18] MEDS: CARVEDILOL 3.125 MG TABLET PO SCH ×2 (09:00→17:13)
[2017-12-18] MEDS: ENALAPRIL MALEATE (10 MG) 10 MG TABLET PO SCH (09:00)
[2017-12-18] MEDS: PROSOURCE / PROSTAT (PYXIS) 30 ML UDC GT SCH ×2 (09:04→16:47)
[2017-12-18] MEDS: RENAL NOVASOURCE (8OZ) 1 EA BOX PO SCH ×3 (09:04→16:47)
[2017-12-18] MEDS: ZINC SULFATE 220 MG CAPSULE PO SCH (09:05)
[2017-12-18] MEDS: FOLIC ACID 1 MG TABLET PO SCH (09:05)
[2017-12-18] MEDS: ALLOPURINOL 100 MG TABLET PO SCH (09:05)
[2017-12-18] MEDS: LamoTRIgine 25 MG TABLET PO SCH (09:05)
[2017-12-18] MEDS: SUCRALFATE 1 G/10 ML UDC PO SCH (09:05)
[2017-12-18] MEDS: LACTOBACILLUS RHAMNOSUS GG 1 EACH CAP.SPRINK PO SCH ×2 (09:05→16:47)
[2017-12-18] MEDS: CITALOPRAM HYDROBROMIDE 20 MG TABLET PO SCH (09:05)
[2017-12-18] MEDS: TAMSULOSIN 0.4 MG CAP.SR.24H PO SCH (09:05)
[2017-12-18] MEDS: MEGESTROL ACETATE SUSP 400 MG/10 ML UDC PO SCH ×2 (09:05→16:47)
[2017-12-18] MEDS: DAKINS QUARTER STRENGTH (0.125%) 480 ML BOTTLE TOP SCH ×2 (09:06→21:12)
[2017-12-18 09:11] LABS: BASOPHILS % (AUTO) 0.3 % (0.0-2.0); EOSINOPHILS # (AUTO) 0.1 /CMM (0.0-0.7); EOSINOPHILS % (AUTO) 0.6 % (0.0-6.0); HEMATOCRIT 22 % (39-51); LYMPHOCYTES # (AUTO) 1.7 /CMM (0.8-4.8); LYMPHOCYTES % (AUTO) 16.4 % (20.0-44.0); MEAN CORPUSCULAR HEMOGLOBIN 25 PG (26.0-33.0); MEAN CORPUSCULAR HGB CONC 31 g/dl (31.0-36.0); MEAN CORPUSCULAR VOLUME 81 fL (80-96); MONOCYTES # (AUTO) 0.5 /CMM (0.1-1.30); MONOCYTES % (AUTO) 4.3 % (2.0-12.0); NEUTROPHILS # (AUTO) 8.4 /CMM (1.8-8.9); NEUTROPHILS % (AUTO) 78.4 % (43.0-81.0); PLATELET COUNT (AUTO) 272 /CMM (150-450); RDW COEFFICIENT OF VARIATION 19.8 (11.5-15.0); RED BLOOD CELL COUNT(AUTO) 2.66 MIL/uL (4.5-6.0); WHITE BLOOD COUNT (AUTO) 10.7 K/uL (4.3-11.0)
[2017-12-18 09:27] LABS: CALCIUM, SERUM 8.3 mg/dL (8.5-10.1); CARBON DIOXIDE 33 mmol/L (21-32); CHLORIDE 100 mmol/L (98-107); GLUCOSE 132 mg/dL (74-106); MAGNESIUM 1.9 mg/dL (1.8-2.4); PHOSPHORUS 3.8 mg/dL (2.5-4.9); POTASSIUM 3.1 mmol/L (3.5-5.1); SODIUM SERUM 140 mmol/L (136-145); UREA NITROGEN, BLOOD 37 mg/dL (7-18)
[2017-12-18 09:39] LABS: HEMOGLOBIN 6.8 g/dL (13.5-17.5)
--- NOTE | 2017-12-18 09:46 | NUR ---
MS RN NOTES PT'S HGB IS CRITICALLY LOW AT 6.8. DR PROCTOR MADE AWARE AND GAVE AN ORDER FOR 1 UNIT PRBCS TO BE GIVEN WITH HD
[2017-12-18 09:50] LABS: BAND % (MANUAL) 2 % (0.0-5.0); LYMPHOCYTES % (MANUAL) 13 % (16-48); MONOCYTES % (MANUAL) 7 % (0-11.0); NEUTROPHILS % (MANUAL) 78 (42-76)
[2017-12-18] MEDS ORDERED: EPOETIN ALFA (10,000 UNIT) 10,000 UNIT/ML VIAL SQ SCH (10:00)
--- NOTE | 2017-12-18 10:12 | NUR ---
MS RN NOTES CONSENT FOR BLOOD AND BLOOD PRODUCTS OBTAINED BY PT'S BROTHER VIA TELEPHONE. THIS WAS WITNESSED AND CONFIRMED BY VIELKA Mcgraw FELLOW EMANUEL
[2017-12-18 13:00] VITALS: BP 93/44
--- NOTE | 2017-12-18 13:00 | NUR ---
MS RN NOTES BLOOD TRANSFUSION HAS BEGUN. PT IS RECEIVING BLOOD VIA DIALYSIS. BLOOD CHECKED AND VERIFIED BY HAIDER CASTELLANOS. VITALS STABLE AT THIS TIME. WILL CONTINUE TO MONITOR.
[2017-12-18 13:15] VITALS: BP 98/52
--- NOTE | 2017-12-18 13:15 | NUR ---
MS RN NOTES BLOOD TRANSFUSION COMPLETE. VITALS STABLE. NO S/S OF TRANSFUSION REACTION. WILL CONTINUE TO MONITOR.
[2017-12-18] MEDS ORDERED: EPOETIN ALFA (10,000 UNIT) 10,000 UNIT/ML VIAL SQ ONE (14:30)
[2017-12-18 16:00] VITALS: BP 103/59
[2017-12-18] MEDS: VANCOMYCIN 500 MG in IV D5W 100 ML IV PRN (16:20)
[2017-12-18] MEDS: ASCORBIC ACID 500 MG TABLET PO SCH (16:47)
[2017-12-18] MEDS: VIT B CMPLX 3/FA/VIT C/BIOTIN 1 TAB TABLET PO SCH (16:47)
--- NOTE | 2017-12-18 17:26 | NUR ---
MS RN NOTES PT'S MIDLINE INFILTRATED. MULTIPLE ATTEMPTS WERE MADE TO INSERT A NEW ONE HOWEVER ALL WERE UNSUCCESSFUL. DR. PROCTOR MADE AWARE AND GAVE A TELEPHONE ORDER FOR A MIDLINE INSERTION. NURSING PARK RECREATION MANAGER WAS MADE AWARE AND STATES THAT AN OUTSIDE VENDOR WILL BE HERE IN AN HR OR SO
--- NOTE | 2017-12-18 19:31 | NUR ---
MS RN CLOSING NOTES PT REMAINS IN STABLE CONDITION. ALL NEEDS ANTICIPATED FOR AND MET THROUGHOUT SHIFT. ALL DUE MEDS GIVEN. METICULOUS WOUND AND SKIN CARE RENDERED ORDERED. PT WAS REPOSITIONED PER HOSPITAL PROTOCOL. HE WAS KEPT CLEAN AND DRY THROUGHOUT SHIFT. VITALS REMAIN STABLE. STILL AWAITING MIDLINE INSERTION. ENDORSED TO NIGHTSHIFT TO COMPLETE VANCO INFUSION WHEN MIDLINE IS COMPLETE. WILL ENDORSE TO NIGHTSHIFT NURSE FOR JOSE
--- NOTE | 2017-12-18 19:32 | NUR ---
MS/RN OPENING NOTES PT RECEIVED RESTING COMFORTABLY IN BED. EYES CLOSED BUT OPENS EYE TO NAME. NON VERBAL. ON ROOM AIR, BREATHING EVEN AND UNLABORED. NO S/S OF SOB OR PAIN. PT APPEARS COMFORTABLE. MONET IN PLACE, DRAINING TO GRAVITY. LITTLE OUTPUT NOTED. LFA AV SHUNT IN PLACE. NO IV ACCESS AT THIS TIME. AWAITING MIDLINE NURSE FOR INSERTION. S/P HD TODAY. BED IN LOW/LOCKED POSITION WITH CALL LIGHT IN REACH. SIDE RAILS UPX2. WILL CONTINUE TO MONITOR
[2017-12-18 20:00] VITALS: BP_SYST 153; BP_SYST 164; BP_DIAS 69; BP_DIAS 74
--- NOTE | 2017-12-18 20:13 | NUR ---
MS/RN NOTES MIDLINE NURSE AT BEDSIDE
[2017-12-18] MEDS: DOCUSATE SODIUM LIQ 100 MG/10 ML UDC PO SCH (21:11)
[2017-12-18] MEDS: ATORVASTATIN 10 MG TABLET PO SCH (21:11)
[2017-12-18] MEDS: DONEPEZIL 5 MG TABLET PO SCH (21:11)
[2017-12-19] MEDS: AMLODIPINE BESYLATE 10 MG TABLET PO SCH (06:00)
--- NOTE | 2017-12-19 07:30 | NUR ---
RN OPEN NOTES RECEIVED REPORT FROM DEDICATED REGIONAL DRIVER NURSE. PATIENT IS IN BED. NON -VERBAL. NO SIGNS AND SYMPTOMS OF DISTRESS. BED IN LOW POSITION, LOCKED AND TWO SIDE RAILS ARE UP. CALL LIGHT WITH REACH FOR SAFETY. WILL CONTINUE TO ASSESS AND MONITOR PATIENT
--- NOTE | 2017-12-19 07:37 | NUR ---
MS/RN CLOSING NOTES PT RESTING COMFORTABLY IN BED. REMAINS ON ROOM AIR, BREATHING EVEN AND UNLABORED. NO S/S OF SOB OR PAIN. MONET IN PLACE, DRAINING TO GRAVITY. DIANE AV SHUNT IN PLACE. JORGE MIDLINE PATENT AND INTACT. KEPT CLEAN AND DRY. TURNED/REPOSITIONED Q2H AND HEELS OFFLOADED AT ALL TIMES. WOUND CARE RENDERED ORDERED. NO SIGNIFICANT CHANGES OVERNIGHT. KEPT PT COMFORTABLE DURING SHIFT. ASPIRATION PRECAUTIONS IMPLEMENTED. BED IN LOW/LOCKED POSITION WITH CALL LIGHT IN REACH. SIDE RAILS UPX2 AND BED ALARM ON FOR SAFETY. ENDORSED TO DAY SHIFT RN JOSE.
[2017-12-19 07:48] LABS: BASOPHILS # (AUTO) 0.1 /CMM (0.0-0.2); BASOPHILS % (AUTO) 0.5 % (0.0-2.0); EOSINOPHILS # (AUTO) 0.1 /CMM (0.0-0.7); EOSINOPHILS % (AUTO) 0.6 % (0.0-6.0); HEMATOCRIT 28 % (39-51); HEMOGLOBIN 8.8 g/dL (13.5-17.5); LYMPHOCYTES # (AUTO) 1.8 /CMM (0.8-4.8); LYMPHOCYTES % (AUTO) 16.4 % (20.0-44.0); MEAN CORPUSCULAR HEMOGLOBIN 27 PG (26.0-33.0); MEAN CORPUSCULAR HGB CONC 32 g/dl (31.0-36.0); MEAN CORPUSCULAR VOLUME 83 fL (80-96); MONOCYTES # (AUTO) 0.4 /CMM (0.1-1.30); NEUTROPHILS # (AUTO) 8.8 /CMM (1.8-8.9); NEUTROPHILS % (AUTO) 78.5 % (43.0-81.0); PLATELET COUNT (AUTO) 252 /CMM (150-450); RDW COEFFICIENT OF VARIATION 18.7 (11.5-15.0); WHITE BLOOD COUNT (AUTO) 11.2 K/uL (4.3-11.0)
[2017-12-19 08:00] VITALS: BP 108/61
--- NOTE | 2017-12-19 08:00 | NUR ---
DR PROCTOR MADE AWARE OF ALBUMIN 1.4
[2017-12-19 08:02] LABS: ALANINE AMINOTRANSFERASE 24 U/L (12-78); ALKALINE PHOSPHATASE 84 U/L (46-116); ASPARTATE AMINOTRANSFERASE 18 U/L (15-37); BILIRUBIN,TOTAL 0.5 mg/dL (0.2-1.0); CALCIUM, SERUM 8.5 mg/dL (8.5-10.1); CARBON DIOXIDE 30 mmol/L (21-32); CHLORIDE 108 mmol/L (98-107); CREATININE 2.3 mg/dL (0.6-1.3); GLUCOSE 83 mg/dL (74-106); PHOSPHORUS 3.1 mg/dL (2.5-4.9); POTASSIUM 3.7 mmol/L (3.5-5.1); SODIUM SERUM 146 mmol/L (136-145); TOTAL PROTEIN, SERUM 5.6 g/dL (6.4-8.2); UREA NITROGEN, BLOOD 25 mg/dL (7-18)
[2017-12-19 08:08] LABS: ALBUMIN 1.4 g/dL (3.4-5.0)
[2017-12-19] MEDS: ENALAPRIL MALEATE (10 MG) 10 MG TABLET PO SCH (09:00)
[2017-12-19] MEDS: CARVEDILOL 3.125 MG TABLET PO SCH ×2 (09:00→17:51)
[2017-12-19] MEDS: ALLOPURINOL 100 MG TABLET PO SCH (09:09)
[2017-12-19] MEDS: SUCRALFATE 1 G/10 ML UDC PO SCH (09:09)
[2017-12-19] MEDS: MEROPENEM 500 MG in IV NS 0.9% 50 ML IV SCH ×2 (09:09→18:27)
[2017-12-19] MEDS: FOLIC ACID 1 MG TABLET PO SCH (09:09)
[2017-12-19] MEDS: MEGESTROL ACETATE SUSP 400 MG/10 ML UDC PO SCH ×2 (09:09→17:51)
[2017-12-19] MEDS: ZINC SULFATE 220 MG CAPSULE PO SCH (09:09)
[2017-12-19] MEDS: LACTOBACILLUS RHAMNOSUS GG 1 EACH CAP.SPRINK PO SCH ×2 (09:09→17:51)
[2017-12-19] MEDS: CITALOPRAM HYDROBROMIDE 20 MG TABLET PO SCH (09:10)
[2017-12-19] MEDS: LamoTRIgine 25 MG TABLET PO SCH (09:10)
[2017-12-19] MEDS: TAMSULOSIN 0.4 MG CAP.SR.24H PO SCH (09:10)
[2017-12-19] MEDS: PROSOURCE / PROSTAT (PYXIS) 30 ML UDC GT SCH ×2 (09:11→17:51)
[2017-12-19] MEDS: DAKINS QUARTER STRENGTH (0.125%) 480 ML BOTTLE TOP SCH ×2 (09:11→21:13)
[2017-12-19] MEDS: RENAL NOVASOURCE (8OZ) 1 EA BOX PO SCH ×3 (09:11→17:52)
--- NOTE | 2017-12-19 09:15 | NUR ---
ONLY PARTIAL DOSE OF ABX ADMINISTERED. MIDLINE MALFUNCTION. NURSING LOAN BROKER NOTIFIED
--- NOTE | 2017-12-19 12:25 | NUR ---
PER DR BLACK NO DIALYZE TODAY
--- NOTE | 2017-12-19 14:00 | NUR ---
MIDLINE ISN'T WORKING. CHARGE NURSE NOTIFIED. WAITING MIDLINE NURSE
[2017-12-19 16:00] VITALS: BP 153/75
[2017-12-19] MEDS: VIT B CMPLX 3/FA/VIT C/BIOTIN 1 TAB TABLET PO SCH (17:51)
[2017-12-19] MEDS: ASCORBIC ACID 500 MG TABLET PO SCH (17:51)
--- NOTE | 2017-12-19 18:04 | NUR ---
NO MIDLINE NURSE YET
--- NOTE | 2017-12-19 18:27 | NUR ---
UNABLE TO ADMINISTER IV ABX DUE TO NO IV ACCESS
--- NOTE | 2017-12-19 18:53 | NUR ---
RN CLOSING NOTES PATIENT IS NON VERBAL. EATING 100% OF HIS FOOD: BREAKFAST, LUNCH AND DINNER. PATIENT IS IN BED. ALL NURSING CARE ATTENDED FOR. PATIENT KEPT CLEAN AND DRY. NO ACUTE CHANGE DURING MY SHIFT. BED IN LOW POSITION, LOCKED AND TWO SIDE RAILS ARE UP. CALL LIGHT WITHIN EACH FOR SAFETY. WILL ENDORSE TO NATURAL GAS BASIS TRADER NURSE
--- NOTE | 2017-12-19 19:40 | NUR ---
RN OPENING NOTES RECEIVED REPORT FROM SELAM GARCIA RN. Pt IS NONVERBAL. MONET CATHETER IN PLACE. WAS INFORMED THAT THE Pt's IV ACCESS ON THE JORGE MIDLINE IS NO LONGER WORKING. EMANUEL DOSS INFORMED SHAHANA SAL THAT A NEW MIDLINE NEEDED TO BE PLACED FOR THE Pt, AND PER SHAHANA SAL, SAID HE WILL COME IN TOMORROW 12/20 TO REPLACE THE MIDLINE. SO FOR NOW WILL HAVE TO HOLD ANY IV MEDS OR FLUIDS UNTIL THE MIDLINE IS REPLACED. AV SHUNT LOCATED ON DIANE. SAFETY MEASURES IN PLACE. BED LOW, LOCKED, HOB ELEVATED, SIDE RAILS UP, BED ALARM ON. WILL CONTINUE TO MONITOR Pt THROUGHOUT THE NIGHT FOR SAFETY.
[2017-12-19 20:19] VITALS: BP_SYST 104; BP_SYST 106; BP_DIAS 55; BP_DIAS 56
[2017-12-19] MEDS: DOCUSATE SODIUM LIQ 100 MG/10 ML UDC PO SCH (22:27)
[2017-12-19] MEDS: DONEPEZIL 5 MG TABLET PO SCH (22:27)
[2017-12-19] MEDS: ATORVASTATIN 10 MG TABLET PO SCH (22:27)
--- NOTE | 2017-12-20 06:40 | NUR ---
RN CLOSING NOTES NO SIGNIFICANT CHANGES IN Pt's CONDITION. Pt REMAINS IN STABLE CONDITION. NO S/S OF ACUTE DISTRESS OR SOB NOTED. ALL NEEDS MET AND ATTENDED TO. SAFETY MEASURES IN PLACE. WILL ENDORSE TO DAYSHIFT RN FOR Pt's JOSE.
[2017-12-20] MEDS: MEROPENEM 500 MG in IV NS 0.9% 50 ML IV SCH ×2 (07:00→18:53)
--- NOTE | 2017-12-20 07:00 | NUR ---
RN NOTES UNABLE TO GIVE IVABX MERREM @0700 DUE TO MIDLINE NOT WORKING. SHAHANA SAL IS AWARE, AND SAID THAT HE WILL COME IN TODAY IN THE AM TO REPLACE THE MIDLINE.
[2017-12-20 07:39] LABS: CALCIUM, SERUM 8.9 mg/dL (8.5-10.1); CARBON DIOXIDE 30 mmol/L (21-32); CHLORIDE 107 mmol/L (98-107); CREATININE 2.9 mg/dL (0.6-1.3); GLUCOSE 89 mg/dL (74-106); POTASSIUM 3.7 mmol/L (3.5-5.1); SODIUM SERUM 143 mmol/L (136-145); UREA NITROGEN, BLOOD 37 mg/dL (7-18)
[2017-12-20 08:00] VITALS: BP 119/68
--- NOTE | 2017-12-20 08:00 | NUR ---
RN NOTES RECEIVED PATIENT IN THE BED APHASIC, NON VERBAL, WHEN CALLED NAME OR TOUCHED PATIENT OPENS EYES, ASSIST EATING, ASSIST TURN AND REPOSTION Q 2 HR. DRESSING CHANGED, NEED MIDLINE INSERTION SHERI SAL AWARE OF, CALL LIGHT WITHIN TO REACH, CONTINUED MONITORING. PATIENT ASPIRATION PRECAUTION. HOB KEEP ELEVATED.
--- NOTE | 2017-12-20 09:00 | NUR ---
RN NOTES PATIENT GETTING HEMODIALYSIS AT THIS TIME. CONTINUED MONITORING.
--- NOTE | 2017-12-20 11:00 | NUR ---
RN NOTES HEMODIALYSIS DONE AT THIS TIME, PER HEMODIALYSIS NURSE OUTPUT WAS 1.5 L FLUID, V/S STABLE BP -125/73, P-84, SCHEDULED MEDICATION ADMINISTERED, ASSIST TURN AND REPOSTION Q2 HR, CALL LIGHT WITHIN TO REACH, CONTINUED MONITORING.
[2017-12-20] MEDS: LamoTRIgine 25 MG TABLET PO SCH (11:18)
[2017-12-20] MEDS: ALLOPURINOL 100 MG TABLET PO SCH (11:18)
[2017-12-20] MEDS: CARVEDILOL 3.125 MG TABLET PO SCH ×2 (11:18→18:54)
[2017-12-20] MEDS: SUCRALFATE 1 G/10 ML UDC PO SCH (11:18)
[2017-12-20] MEDS: TAMSULOSIN 0.4 MG CAP.SR.24H PO SCH (11:19)
[2017-12-20] MEDS: ENALAPRIL MALEATE (10 MG) 10 MG TABLET PO SCH (11:19)
[2017-12-20] MEDS: ZINC SULFATE 220 MG CAPSULE PO SCH (11:19)
[2017-12-20] MEDS: FOLIC ACID 1 MG TABLET PO SCH (11:19)
[2017-12-20] MEDS: LACTOBACILLUS RHAMNOSUS GG 1 EACH CAP.SPRINK PO SCH ×2 (11:19→18:53)
[2017-12-20] MEDS: CITALOPRAM HYDROBROMIDE 20 MG TABLET PO SCH (11:19)
[2017-12-20] MEDS: PROSOURCE / PROSTAT (PYXIS) 30 ML UDC GT SCH ×2 (11:20→18:53)
[2017-12-20] MEDS: DAKINS QUARTER STRENGTH (0.125%) 480 ML BOTTLE TOP SCH ×2 (11:21→19:50)
[2017-12-20] MEDS: MEGESTROL ACETATE SUSP 400 MG/10 ML UDC PO SCH ×2 (11:24→18:53)
[2017-12-20] MEDS: RENAL NOVASOURCE (8OZ) 1 EA BOX PO SCH ×3 (11:25→18:55)
[2017-12-20] MEDS ORDERED: VANCOMYCIN 1 GM in IV D5W 250 ML IV SCH (14:00)
--- NOTE | 2017-12-20 15:00 | NUR ---
RN NOTES PATIENT IN THE BED , NO ACUTE DISTRESS, NO RESPIRATORY DISTRESS, ASSIST TURN AND REPOSTION Q 2 HR. NEEDS ATTENDED AND ANTICIPATED, F/C DRAIN LIGHT YELLOW OUTPUT, CONTINUED MONITORING.
[2017-12-20 16:00] VITALS: BP 129/62
--- NOTE | 2017-12-20 18:30 | NUR ---
RN NOTES PATIENT IN THE BED, ASSIST TURN AND REPOSTION Q 2 HR, MIDLINE ON RIGHT UPPER ARM INTACT, F/C DRAIN LIGHT YELLOW OUTPUT, V/S STABLE, SCHEDULED MEDICATION ADMINISTERED. NEEDS ATTENDED AND ANTICIPATED, PATIENT ASPIRATION PRECAUTION, CALL LIGHT WITHIN TO REACH, CONTINUED MONITORING. ENDORSED ONCOMING NURSE FOR JOSE.
[2017-12-20] MEDS: VIT B CMPLX 3/FA/VIT C/BIOTIN 1 TAB TABLET PO SCH (18:53)
[2017-12-20] MEDS: ASCORBIC ACID 500 MG TABLET PO SCH (19:00)
--- NOTE | 2017-12-20 19:40 | NUR ---
RN OPENING NOTES RECEIVED REPORT FROM RADHA RN, FOUND Pt ASLEEP IN BED. WITH EQUAL CHEST RISE AND FALL. NO S/S OF ACUTE DISTRESS OR SOB NOTED. Pt IS DNR. Pt IS NONVERBAL, BUT ABLE TO EAT. MONET CATHETER IN PLACE AND DRAINING WELL. HD DONE TODAY WITH 1.5L OUT. NEW MIDLINE INSERTION PLACED TODAY ON JORGE. AV SHUNT ON DIANE. SAFETY MEASURES IN PLACE. BED LOW, LOCKED, HOB ELEVATED, SIDE RAILS UP, CALL LIGHT AND BEDSIDE TABLE WITHIN REACH. WILL CONTINUE TO MONITOR Pt THROUGHOUT THE NIGHT FOR SAFETY.
[2017-12-20 20:00] VITALS: BP_SYST 127; BP_SYST 165; BP_DIAS 58; BP_DIAS 74
[2017-12-20] MEDS: ATORVASTATIN 10 MG TABLET PO SCH (22:47)
[2017-12-20] MEDS: ACETAMINOPHEN 325 MG TABLET PO PRN (22:47)
[2017-12-20] MEDS: DOCUSATE SODIUM LIQ 100 MG/10 ML UDC PO SCH (22:47)
[2017-12-20] MEDS: DONEPEZIL 5 MG TABLET PO SCH (22:47)
[2017-12-21] MEDS: AMLODIPINE BESYLATE 10 MG TABLET PO SCH ×2 (06:01→10:17)
[2017-12-21] MEDS: MEROPENEM 500 MG in IV NS 0.9% 50 ML IV SCH ×2 (06:01→18:13)
[2017-12-21] MEDS: DAKINS QUARTER STRENGTH (0.125%) 480 ML BOTTLE TOP SCH ×2 (06:18→19:30)
--- NOTE | 2017-12-21 06:45 | NUR ---
RN CLOSING NOTES NO SIGNIFICANT CHANGES IN Pt's CONDITION. Pt REMAINS IN STABLE CONDITION. NO S/S OF ACUTE DISTRESS OR SOB NOTED DURING THE NIGHT. ALL NEEDS MET AND ATTENDED TO. SAFETY MEASURES IN PLACE. WILL ENDORSE TO DAYSHIFT RN FOR Pt's JOSE.
[2017-12-21 07:20] LABS: CALCIUM, SERUM 8.6 mg/dL (8.5-10.1); CARBON DIOXIDE 31 mmol/L (21-32); CHLORIDE 109 mmol/L (98-107); CREATININE 2.7 mg/dL (0.6-1.3); GLUCOSE 93 mg/dL (74-106); POTASSIUM 4.2 mmol/L (3.5-5.1); SODIUM SERUM 145 mmol/L (136-145); UREA NITROGEN, BLOOD 43 mg/dL (7-18)
[2017-12-21 08:00] VITALS: BP 106/57
--- NOTE | 2017-12-21 08:00 | NUR ---
RN NOTES RECEIVED PATIENT IN THE ROOM NO VERBAL, NO ACUTE RESPIRATORY DISTRESS. PATIENT CONTACT ISOLATION OF URINE. NEEDS ATTENDED AND ANTICIPATED, V/S STABLE, MED ADMINISTERED WITH CRUSH MIXED APPLE SAUCE, HOB ELEVATED, ASPIRATION PRECAUTION MONITORING, ASSIST TURN AND REPOSTION Q 2 HR, NEED ATTENDED AND ANTICIPATED, CALL LIGHT WITHIN TO REACH, F/C DRAIN LIGHT YELLOW OUTPUT, MIDLINE RIGHT UPPER ARM INTACT, SAFETY PRECAUTION MAINTAINED ALL THE TIME.
[2017-12-21] MEDS: ENALAPRIL MALEATE (10 MG) 10 MG TABLET PO SCH (09:00)
[2017-12-21] MEDS: CARVEDILOL 3.125 MG TABLET PO SCH ×3 (09:00→17:15)
[2017-12-21] MEDS: PROSOURCE / PROSTAT (PYXIS) 30 ML UDC GT SCH ×2 (10:15→17:12)
[2017-12-21] MEDS: RENAL NOVASOURCE (8OZ) 1 EA BOX PO SCH ×3 (10:15→17:12)
[2017-12-21] MEDS: MEGESTROL ACETATE SUSP 400 MG/10 ML UDC PO SCH ×2 (10:16→17:11)
[2017-12-21] MEDS: ZINC SULFATE 220 MG CAPSULE PO SCH (10:16)
[2017-12-21] MEDS: SUCRALFATE 1 G/10 ML UDC PO SCH (10:16)
[2017-12-21] MEDS: ALLOPURINOL 100 MG TABLET PO SCH (10:16)
[2017-12-21] MEDS: TAMSULOSIN 0.4 MG CAP.SR.24H PO SCH (10:16)
[2017-12-21] MEDS: VIT B CMPLX 3/FA/VIT C/BIOTIN 1 TAB TABLET PO SCH ×2 (10:16→17:11)
[2017-12-21] MEDS: CITALOPRAM HYDROBROMIDE 20 MG TABLET PO SCH (10:17)
[2017-12-21] MEDS: LACTOBACILLUS RHAMNOSUS GG 1 EACH CAP.SPRINK PO SCH ×2 (10:17→17:11)
[2017-12-21] MEDS: LamoTRIgine 25 MG TABLET PO SCH (10:17)
[2017-12-21] MEDS: FOLIC ACID 1 MG TABLET PO SCH (10:17)
--- NOTE | 2017-12-21 12:00 | NUR ---
RN NOTES DRESSING CHANGED, ASSIST TURN AND REPOSTION Q 2 HR, NEEDS ATTENDED AND ANTICIPATED, CONTINUED MONITORING.
[2017-12-21] MEDS: VANCOMYCIN 500 MG in IV D5W 100 ML IV PRN (12:43)
[2017-12-21 15:43] VITALS: BP 100/53
[2017-12-21] MEDS: ASCORBIC ACID 500 MG TABLET PO SCH (17:12)
[2017-12-21] MEDS: ACETAMINOPHEN 325 MG TABLET PO PRN ×2 (17:13→22:34)
--- NOTE | 2017-12-21 17:15 | NUR ---
RN NOTES ADMINISTERED SCHEDULED MEDICATION, ALSO ADMINISTERED TYLENOL 650 MG PO PRN FOR GENERALIZED PAIN. HELD BP MEDICATION BP-100/53, P-96, CONTINUED MONITORING. ASSIST EATING, HOB KEEP ELEVATED, PATIENT ASPIRATION PRECAUTION , OFFERED FLUID TOLERATED. ASSIST TURN AND REPOSTION Q 2 HR.
--- NOTE | 2017-12-21 17:36 | NUR ---
RN NOTES BS-99 MG/DL, SCHEDULED MEDICATION ADMINISTERED, MEDICATION WERE ADMINISTERED FOR PAIN EFFECTIVE, NO ACUTE DISTRESS, CALL LIGHT WITHIN TO REACH, SAFETY PRECAUTION MAINTAINED ALL THE TIME. Addendum: 12/21/17 at 1741 by ARETHA BECK RN UPPER NOTES ON 424 IN CORRECT PATIENT.
--- NOTE | 2017-12-21 18:30 | NUR ---
RN NOTES PATIENT STABLE AT THIS TIME. NO ACUTE RESPIRATORY DISTRESS. ENDORSED ONCOMING NURSE FOR JOSE.
--- NOTE | 2017-12-21 19:40 | NUR ---
RN INITIAL NOTES PT IS IN BED RESTING. HOB ELEVATED. NO SIGNS OF SOB OR DISTRESS. BREATHING EVENLY AND UNLABORED ON RA. MONET CATHETER IS INTACT AND PATENT. JORGE MIDLINE IS INTACT AND ON SL. PT IS ON PUREED DIET. WOUND CARE TO BE RENDERED. BED IS IN LOW AND LOCKED POSITION. WILL CONTINUE TO MONITOR PT
[2017-12-21 20:00] VITALS: BP 112/63
[2017-12-21] MEDS: DONEPEZIL 5 MG TABLET PO SCH (21:40)
[2017-12-21] MEDS: ATORVASTATIN 10 MG TABLET PO SCH (21:40)
[2017-12-21] MEDS: DOCUSATE SODIUM LIQ 100 MG/10 ML UDC PO SCH (21:40)
[2017-12-22] MEDS: MEROPENEM 500 MG in IV NS 0.9% 50 ML IV SCH ×2 (06:03→18:11)
--- NOTE | 2017-12-22 07:06 | NUR ---
MS RN CLOSING NOTES PT IS IN BED RESTING, NO SIGNS OF SOB OR DISTRESS. BREATHING EVENLY AND UNLABORED. IV ACCESS IS INTACT AND PATENT. WOUND CARE RENDERED. NO ACUTE CHANGES THROUGHOUT THE SHIFT. ALL NEEDS WERE ANTICIPATED AND MET. BED IS IN LOW AND LOCKED POSITION, CALL LIGHT WITHIN REACH. WILL ENDORSE TO DAYSHIFT
[2017-12-22 07:29] LABS: BASOPHILS % (AUTO) 0.3 % (0.0-2.0); EOSINOPHILS # (AUTO) 0.1 /CMM (0.0-0.7); EOSINOPHILS % (AUTO) 0.4 % (0.0-6.0); HEMATOCRIT 28 % (39-51); HEMOGLOBIN 8.8 g/dL (13.5-17.5); LYMPHOCYTES # (AUTO) 2.2 /CMM (0.8-4.8); LYMPHOCYTES % (AUTO) 15.5 % (20.0-44.0); MEAN CORPUSCULAR HEMOGLOBIN 26 PG (26.0-33.0); MEAN CORPUSCULAR HGB CONC 32 g/dl (31.0-36.0); MEAN CORPUSCULAR VOLUME 84 fL (80-96); MONOCYTES # (AUTO) 0.6 /CMM (0.1-1.30); MONOCYTES % (AUTO) 4.6 % (2.0-12.0); NEUTROPHILS % (AUTO) 79.2 % (43.0-81.0); PLATELET COUNT (AUTO) 276 /CMM (150-450); RDW COEFFICIENT OF VARIATION 18.6 (11.5-15.0); RED BLOOD CELL COUNT(AUTO) 3.34 MIL/uL (4.5-6.0); WHITE BLOOD COUNT (AUTO) 13.9 K/uL (4.3-11.0)
--- NOTE | 2017-12-22 07:51 | NUR ---
RN OPENING NOTES RECEIVED PT. PT IN BED RESTING. PT IS NON VERBAL, UNABLE TO COMMUNICATE. NO S/S OF RESP DISTRESS OR SOB. PT DOES NOT APPEAR TO BE IN PAIN. AV SHUNT NOTED ON DIANE. IV ACCESS LOCATED ON JORGE, MIDLINE CURRENTLY SL. PT IS SCHEDULED TO HAVE HD TODAY 12/22/17. SAFETY MEASURES IN PLACE, CALL LIGHT WITHIN REACH. WILL CONTINUE TO MONITOR.
[2017-12-22 07:58] LABS: CARBON DIOXIDE 31 mmol/L (21-32); CHLORIDE 109 mmol/L (98-107); CREATININE 3.5 mg/dL (0.6-1.3); GLUCOSE 82 mg/dL (74-106); MAGNESIUM 2.1 mg/dL (1.8-2.4); PHOSPHORUS 3.6 mg/dL (2.5-4.9); POTASSIUM 4.8 mmol/L (3.5-5.1); SODIUM SERUM 145 mmol/L (136-145); UREA NITROGEN, BLOOD 54 mg/dL (7-18)
[2017-12-22 08:00] VITALS: BP 162/88
[2017-12-22] MEDS: DAKINS QUARTER STRENGTH (0.125%) 480 ML BOTTLE TOP SCH ×2 (08:07→19:30)
[2017-12-22] MEDS: PROSOURCE / PROSTAT (PYXIS) 30 ML UDC GT SCH ×2 (08:08→16:41)
[2017-12-22] MEDS: MEGESTROL ACETATE SUSP 400 MG/10 ML UDC PO SCH ×2 (08:12→16:37)
[2017-12-22] MEDS: CITALOPRAM HYDROBROMIDE 20 MG TABLET PO SCH (08:12)
[2017-12-22] MEDS: LACTOBACILLUS RHAMNOSUS GG 1 EACH CAP.SPRINK PO SCH ×2 (08:12→16:37)
[2017-12-22] MEDS: SUCRALFATE 1 G/10 ML UDC PO SCH (08:12)
[2017-12-22] MEDS: ZINC SULFATE 220 MG CAPSULE PO SCH (08:12)
[2017-12-22] MEDS: ALLOPURINOL 100 MG TABLET PO SCH (08:12)
[2017-12-22] MEDS: FOLIC ACID 1 MG TABLET PO SCH (08:13)
[2017-12-22] MEDS: LamoTRIgine 25 MG TABLET PO SCH (08:13)
[2017-12-22] MEDS: ENALAPRIL MALEATE (10 MG) 10 MG TABLET PO SCH (08:13)
[2017-12-22] MEDS: TAMSULOSIN 0.4 MG CAP.SR.24H PO SCH (08:13)
[2017-12-22] MEDS: RENAL NOVASOURCE (8OZ) 1 EA BOX PO SCH ×3 (08:18→16:37)
[2017-12-22 09:53] LABS: LYMPHOCYTES % (MANUAL) 13 % (16-48); MONOCYTES % (MANUAL) 3 % (0-11.0); NEUTROPHILS % (MANUAL) 84 (42-76)
[2017-12-22 16:00] VITALS: BP 152/74
[2017-12-22] MEDS: ASCORBIC ACID 500 MG TABLET PO SCH (16:37)
[2017-12-22] MEDS: VIT B CMPLX 3/FA/VIT C/BIOTIN 1 TAB TABLET PO SCH (16:37)
[2017-12-22] MEDS: CARVEDILOL 3.125 MG TABLET PO SCH (17:02)
--- NOTE | 2017-12-22 18:27 | NUR ---
RN CLOSING NOTE PT IN BED RESTING. NO S/S OF RESP DISTRESS OR SOB. PT DOES NOT APPEAR TO BE IN PAIN AT THIS TIME. SACRAL WOUND DRESSING CHANGE PERFORMED. HD COMPLETED TODAY WITH OUTPUT OF 1.5L. ALL PT NEEDS ANTICIPATED AND MET, SAFETY MEASURES IN PLACE, CALL LIGHT WITHIN REACH. WILL ENDORSE TO CHARGE ACCOUNTS AUDIT CLERK FOR JOSE.
[2017-12-22 20:00] VITALS: BP 112/52
[2017-12-22] MEDS: DOCUSATE SODIUM LIQ 100 MG/10 ML UDC PO SCH (21:14)
[2017-12-22] MEDS: DONEPEZIL 5 MG TABLET PO SCH (21:14)
[2017-12-22] MEDS: ATORVASTATIN 10 MG TABLET PO SCH (21:14)
[2017-12-23] MEDS: MEROPENEM 500 MG in IV NS 0.9% 50 ML IV SCH ×2 (06:02→18:24)
--- NOTE | 2017-12-23 07:40 | NUR ---
RN OPENING NOTES PT IN BED RESTING. NO S/S OF RESP DISTRESS OR SOB. PT DOES NOT APPEAR TO BE IN PAIN. PT IS NON-VERBAL AND UNABLE TO COMMUNICATE. IV ACCESS LOCATED ON RIGHT UPPER ARM, MIDLINE, CURRENTLY SL. DIANE AV SHUNT NOTED. SAFETY MEASURES IN PLACE, CALL LIGHT WITHIN REACH. WILL CONTINUE TO MONITOR.
[2017-12-23 08:00] VITALS: BP 158/63
[2017-12-23] MEDS: SUCRALFATE 1 G/10 ML UDC PO SCH (08:29)
[2017-12-23] MEDS: MEGESTROL ACETATE SUSP 400 MG/10 ML UDC PO SCH ×2 (08:29→16:39)
[2017-12-23] MEDS: FOLIC ACID 1 MG TABLET PO SCH (08:30)
[2017-12-23] MEDS: LamoTRIgine 25 MG TABLET PO SCH (08:32)
[2017-12-23] MEDS: CITALOPRAM HYDROBROMIDE 20 MG TABLET PO SCH (08:33)
[2017-12-23] MEDS: ALLOPURINOL 100 MG TABLET PO SCH (08:33)
[2017-12-23] MEDS: ENALAPRIL MALEATE (10 MG) 10 MG TABLET PO SCH (08:33)
[2017-12-23] MEDS: ZINC SULFATE 220 MG CAPSULE PO SCH (08:33)
[2017-12-23] MEDS: LACTOBACILLUS RHAMNOSUS GG 1 EACH CAP.SPRINK PO SCH ×2 (08:33→16:39)
[2017-12-23] MEDS: TAMSULOSIN 0.4 MG CAP.SR.24H PO SCH (08:33)
[2017-12-23] MEDS: CARVEDILOL 3.125 MG TABLET PO SCH ×2 (08:34→17:47)
[2017-12-23] MEDS: RENAL NOVASOURCE (8OZ) 1 EA BOX PO SCH ×3 (08:40→16:39)
[2017-12-23] MEDS: PROSOURCE / PROSTAT (PYXIS) 30 ML UDC GT SCH ×2 (08:41→16:39)
[2017-12-23] MEDS: DAKINS QUARTER STRENGTH (0.125%) 480 ML BOTTLE TOP SCH ×2 (08:41→19:30)
[2017-12-23 09:00] VITALS: BP 158/68
[2017-12-23 16:00] VITALS: BP 121/65
[2017-12-23] MEDS: ASCORBIC ACID 500 MG TABLET PO SCH (16:39)
[2017-12-23] MEDS: VIT B CMPLX 3/FA/VIT C/BIOTIN 1 TAB TABLET PO SCH (16:39)
--- NOTE | 2017-12-23 18:30 | NUR ---
RN CLOSING NOTE PT IN BED SLEEPING. NO S/S OF RESP DISTRESS OR SOB. PT DOES NOT APPEAR TO BE IN PAIN AT THIS TIME. WOUND DRESSING CHANGES PERFORMED. ALL PT NEEDS ANTICIPATED AND MET. SAFETY MEASURES IN PLACE, CALL LIGHT IN REACH, WILL ENDORSE TO PROCESS ENGINEERING MANAGER FOR JOSE.
[2017-12-23 20:00] VITALS: BP 104/54
[2017-12-23] MEDS: ATORVASTATIN 10 MG TABLET PO SCH (21:15)
[2017-12-23] MEDS: DONEPEZIL 5 MG TABLET PO SCH (21:15)
[2017-12-23] MEDS: DOCUSATE SODIUM LIQ 100 MG/10 ML UDC PO SCH (21:15)
[2017-12-24] MEDS: MEROPENEM 500 MG in IV NS 0.9% 50 ML IV SCH ×2 (06:03→19:25)
[2017-12-24] MEDS: AMLODIPINE BESYLATE 10 MG TABLET PO SCH (06:03)
--- NOTE | 2017-12-24 07:55 | NUR ---
MS RN OPENING NOTE RECEIVED BEDSIDE SBAR REPORT ON THE PATIENT. PATIENT IS NON-VERBAL. HEMODIALYSIS AT THE BEDSIDE. BED IS LOCKED, IN LOWEST POSITION, SIDE RAILS UP X3, BED ALARM IS ON. NO SIGNS OF PAIN/DISCOMFORT AT THIS TIME. HOB ELEVATED. PATIENT PRESENTS WITH MULTIPLE SKIN CONDITIONS. ALL BELONGINGS WITHIN REACH. ALL NEEDS ARE MET. CALL LIGHT WITHIN REACH. EDUCATED TO CALL FOR ASSISTANCE USING THE CALL LIGHT. WILL CONTINUE TO ASSESS/MONITOR THROUGHOUT THE SHIFT.
[2017-12-24 08:00] VITALS: BP 103/53
[2017-12-24] MEDS: ENALAPRIL MALEATE (10 MG) 10 MG TABLET PO SCH (09:00)
[2017-12-24] MEDS: CARVEDILOL 3.125 MG TABLET PO SCH ×2 (09:00→17:11)
[2017-12-24] MEDS: PROSOURCE / PROSTAT (PYXIS) 30 ML UDC GT SCH ×2 (09:40→17:13)
[2017-12-24] MEDS: RENAL NOVASOURCE (8OZ) 1 EA BOX PO SCH ×3 (09:40→17:11)
[2017-12-24] MEDS: MEGESTROL ACETATE SUSP 400 MG/10 ML UDC PO SCH ×2 (09:40→17:10)
[2017-12-24] MEDS: TAMSULOSIN 0.4 MG CAP.SR.24H PO SCH (09:40)
[2017-12-24] MEDS: SUCRALFATE 1 G/10 ML UDC PO SCH (09:40)
[2017-12-24] MEDS: LACTOBACILLUS RHAMNOSUS GG 1 EACH CAP.SPRINK PO SCH ×2 (09:41→17:11)
[2017-12-24] MEDS: ALLOPURINOL 100 MG TABLET PO SCH (09:41)
[2017-12-24] MEDS: ZINC SULFATE 220 MG CAPSULE PO SCH (09:42)
[2017-12-24] MEDS: CITALOPRAM HYDROBROMIDE 20 MG TABLET PO SCH (09:42)
[2017-12-24] MEDS: LamoTRIgine 25 MG TABLET PO SCH (09:42)
[2017-12-24] MEDS: FOLIC ACID 1 MG TABLET PO SCH (09:44)
[2017-12-24] MEDS: DAKINS QUARTER STRENGTH (0.125%) 480 ML BOTTLE TOP SCH ×2 (09:44→21:28)
[2017-12-24 16:00] VITALS: BP 120/59
[2017-12-24] MEDS ORDERED: VANCOMYCIN 1 GM in IV D5W 250 ML IV ONE (16:00)
[2017-12-24] MEDS: ASCORBIC ACID 500 MG TABLET PO SCH (17:10)
[2017-12-24] MEDS: VIT B CMPLX 3/FA/VIT C/BIOTIN 1 TAB TABLET PO SCH (17:11)
[2017-12-24 20:00] VITALS: BP 101/54
--- NOTE | 2017-12-24 20:00 | NUR ---
RN NOTES RECEIVED PATIENT IN BED WITH EYES CLOSE, NO DISTRESS NOTED. BREATHING EVEN AND UNLABORED. NO PHYSICAL MANIFESTATION OF PAIN OR DISCOMFORT. VITAL SIGNS WNL. NO FACIAL GRIMACING. KEPT CLEAN AND DRY. WILL CONTINUE TO MONITOR.
--- NOTE | 2017-12-24 20:18 | NUR ---
MS RN CLOSING NOTE GAVE BEDSIDE SBAR REPORT ON THE PATIENT. PATIENT IS NON-VERBAL. HEMODIALYSIS AT THE BEDSIDE. BED IS LOCKED, IN LOWEST POSITION, SIDE RAILS UP X3, BED ALARM IS ON. NO SIGNS OF PAIN/DISCOMFORT AT THIS TIME. HOB ELEVATED AT ALL TIMES. PATIENT PRESENTS WITH MULTIPLE SKIN CONDITIONS. ALL BELONGINGS WITHIN REACH. ALL NEEDS ARE MET. CALL LIGHT WITHIN REACH. EDUCATED TO CALL FOR ASSISTANCE USING THE CALL LIGHT. ENDORSED TO THE CSO NURSE FOR JOSE.
[2017-12-24] MEDS: ATORVASTATIN 10 MG TABLET PO SCH (21:33)
[2017-12-24] MEDS: DOCUSATE SODIUM LIQ 100 MG/10 ML UDC PO SCH (21:33)
[2017-12-24] MEDS: DONEPEZIL 5 MG TABLET PO SCH (21:33)
[2017-12-25 04:00] VITALS: BP 101/54
[2017-12-25] MEDS: MEROPENEM 500 MG in IV NS 0.9% 50 ML IV SCH (06:17)
--- NOTE | 2017-12-25 06:42 | NUR ---
RN CLOSING NOTES IN BED WITH NO DISTRESS NOTED. AWAKE, ABLE TO COMMUNICATE NEEDS. NO COMPLAINT OF PAIN OR DISCOMFORT. NO SIGNIFICANT CHANGE OF CONDITION. VITAL SIGNS WNL. WILL ENDORSE TO AM SHIFT FOR CONTINUITY OF CARE
--- NOTE | 2017-12-25 07:54 | NUR ---
MS RN OPENING NOTE RECEIVED BEDSIDE SBAR REPORT ON THE PATIENT. PATIENT IS NON-VERBAL, CONTRACTED. OPENS EYES TO NAME AND TOUCH. BED IS LOCKED, IN LOWEST POSITION, SIDE RAILS UP X3, BED ALARM IS ON. NO SIGNS OF PAIN/DISCOMFORT AT THIS TIME. HOB ELEVATED. PATIENT PRESENTS WITH MULTIPLE SKIN CONDITIONS. PATIENT REPOSITIONED FOR COMFORT AND FUNCTIONAL ALIGNMENT OF THE LIMBS. ALL BELONGINGS WITHIN REACH. ALL NEEDS ARE MET. CALL LIGHT WITHIN REACH. EDUCATED TO CALL FOR ASSISTANCE USING THE CALL LIGHT. PATIENT'S ROOM CLOSE TO NURSNG STATION FOR FREQUENT ROUNDING AND VISUAL ON PATIENT. WILL CONTINUE TO ASSESS/MONITOR THROUGHOUT THE SHIFT.
[2017-12-25 08:00] VITALS: BP 112/67
[2017-12-25 08:56] VITALS: BP 126/67
[2017-12-25] MEDS: DAKINS QUARTER STRENGTH (0.125%) 480 ML BOTTLE TOP SCH (09:33)
[2017-12-25] MEDS: PROSOURCE / PROSTAT (PYXIS) 30 ML UDC GT SCH ×2 (09:33→17:50)
[2017-12-25] MEDS: RENAL NOVASOURCE (8OZ) 1 EA BOX PO SCH ×3 (09:34→17:51)
[2017-12-25] MEDS: MEGESTROL ACETATE SUSP 400 MG/10 ML UDC PO SCH ×2 (09:55→17:49)
[2017-12-25] MEDS: ZINC SULFATE 220 MG CAPSULE PO SCH (09:55)
[2017-12-25] MEDS: SUCRALFATE 1 G/10 ML UDC PO SCH (09:55)
[2017-12-25] MEDS: TAMSULOSIN 0.4 MG CAP.SR.24H PO SCH (10:00)
[2017-12-25] MEDS: ALLOPURINOL 100 MG TABLET PO SCH (10:00)
[2017-12-25] MEDS: CARVEDILOL 3.125 MG TABLET PO SCH ×2 (10:00→17:49)
[2017-12-25] MEDS: FOLIC ACID 1 MG TABLET PO SCH (10:00)
[2017-12-25] MEDS: CITALOPRAM HYDROBROMIDE 20 MG TABLET PO SCH (10:00)
[2017-12-25] MEDS: LACTOBACILLUS RHAMNOSUS GG 1 EACH CAP.SPRINK PO SCH ×2 (10:00→17:49)
[2017-12-25] MEDS: ENALAPRIL MALEATE (10 MG) 10 MG TABLET PO SCH (10:01)
[2017-12-25] MEDS: LamoTRIgine 25 MG TABLET PO SCH (10:10)
--- NOTE | 2017-12-25 10:11 | NUR ---
LAMOTRIGINE FELL ON THE FLOOR. TOOK OUT A NEW ONE FROM [employer]. ADMINISTERED ONLY ONCE ORDERED.
[2017-12-25] MEDS ORDERED: CEFTRIAXONE 1 G in IV NS 0.9% 50 ML IV SCH (13:00)
[2017-12-25] MEDS ORDERED: VANCOMYCIN 500 MG in IV D5W 100 ML IV PRN (15:00)
[2017-12-25 16:15] VITALS: BP 123/56
--- NOTE | 2017-12-25 16:46 | NUR ---
DISCHARGE ORDER RECEIVED. TELEPHONE SBAR REPORT GIVEN TO CHRISTOPHER AT [facility] WHERE PATIENT WILL BE TAKEN TO BY AMBULANCE. MONET CATHETER IS LEFT IN PLACE PATIENT HAS SACRAL WOUNDS. JORGE MIDLINE LEFT IN PLACE FOR ANTIBIOTIC ADMINISTRATION POST DISCHARGE PRESCRIBED. WOUND CARE ADMINISTERED ORDERED. PATIENT WILL BE PICKED UP BY AMBULANCE SOON.
[2017-12-25 17:49] VITALS: BP 121/68
[2017-12-25] MEDS: VIT B CMPLX 3/FA/VIT C/BIOTIN 1 TAB TABLET PO SCH (17:49)
[2017-12-25] MEDS: ASCORBIC ACID 500 MG TABLET PO SCH (17:49)
--- NOTE | 2017-12-25 18:15 | NUR ---
PATIENT LEFT THE HOSPITAL IN STABLE CONDITION
== END 2017-12-25 18:21 | DRG 853 ==
LOC: ER 14:08 → MED 16:20
PROVIDERS: ADMIT Internal Medicine; ATTEND Internal Medicine
PROC: 5A1D70Z Performance of Urinary Filtration, Intermittent, Less than 6 Hours Per Day (ICD-10-PCS; 2017-12-16)
PROC: 0KBN0ZZ Excision of Right Hip Muscle, Open Approach (ICD-10-PCS; principal; 2017-12-17)
PROC: 0KBP0ZZ Excision of Left Hip Muscle, Open Approach (ICD-10-PCS; 2017-12-17)
PROC: 30233N1 Transfusion of Nonautologous Red Blood Cells into Peripheral Vein, Percutaneous Approach (ICD-10-PCS; 2017-12-18)
PROC: 05H533Z Insertion of Infusion Device into Right Subclavian Vein, Percutaneous Approach (ICD-10-PCS; 2017-12-18)
PROC: B546ZZA Ultrasonography of Right Subclavian Vein, Guidance (ICD-10-PCS; 2017-12-18)
PROC: 5A1D70Z Performance of Urinary Filtration, Intermittent, Less than 6 Hours Per Day (ICD-10-PCS; 2017-12-18)
PROC: 5A1D70Z Performance of Urinary Filtration, Intermittent, Less than 6 Hours Per Day (ICD-10-PCS; 2017-12-20)
PROC: 5A1D70Z Performance of Urinary Filtration, Intermittent, Less than 6 Hours Per Day (ICD-10-PCS; 2017-12-22)
PROC: 5A1D70Z Performance of Urinary Filtration, Intermittent, Less than 6 Hours Per Day (ICD-10-PCS; 2017-12-24)
DX: A41.02 Sepsis due to Methicillin resistant Staphylococcus aureus (principal); I21.4 Non-ST elevation (NSTEMI) myocardial infarction; N17.0 Acute kidney failure with tubular necrosis; E43 Unspecified severe protein-calorie malnutrition; I13.2 Hypertensive heart and chronic kidney disease with heart failure and with stage 5 chronic kidney disease, or end stage renal disease; J18.9 Pneumonia, unspecified organism; L89.154 Pressure ulcer of sacral region, stage 4; G92 Toxic encephalopathy; L89.214 Pressure ulcer of right hip, stage 4; R53.2 Functional quadriplegia; N18.6 End stage renal disease; S72.001A Fracture of unspecified part of neck of right femur, initial encounter for closed fracture; N39.0 Urinary tract infection, site not specified; M46.28 Osteomyelitis of vertebra, sacral and sacrococcygeal region; L97.309 Non-pressure chronic ulcer of unspecified ankle with unspecified severity; L97.329 Non-pressure chronic ulcer of left ankle with unspecified severity; L97.319 Non-pressure chronic ulcer of right ankle with unspecified severity; L97.419 Non-pressure chronic ulcer of right heel and midfoot with unspecified severity; E87.2 Acidosis; E11.622 Type 2 diabetes mellitus with other skin ulcer; E11.22 Type 2 diabetes mellitus with diabetic chronic kidney disease; F03.90 Unspecified dementia, unspecified severity, without behavioral disturbance, psychotic disturbance, mood disturbance, and anxiety; G40.909 Epilepsy, unspecified, not intractable, without status epilepticus; Z86.73 Personal history of transient ischemic attack (TIA), and cerebral infarction without residual deficits; E87.6 Hypokalemia; E78.5 Hyperlipidemia, unspecified; E03.9 Hypothyroidism, unspecified; Z88.0 Allergy status to penicillin; I25.10 Atherosclerotic heart disease of native coronary artery without angina pectoris; I11.0 Hypertensive heart disease with heart failure; N40.0 Benign prostatic hyperplasia without lower urinary tract symptoms; D64.9 Anemia, unspecified; M10.9 Gout, unspecified; Z79.899 Other long term (current) drug therapy; E11.69 Type 2 diabetes mellitus with other specified complication; F32.9 Major depressive disorder, single episode, unspecified; X58.XXXA Exposure to other specified factors, initial encounter; Y92.9 Unspecified place or not applicable; M85.9 Disorder of bone density and structure, unspecified; Z66 Do not resuscitate; Z51.5 Encounter for palliative care; Z99.2 Dependence on renal dialysis; Z87.11 Personal history of peptic ulcer disease; Y95 Nosocomial condition; I25.2 Old myocardial infarction; I50.9 Heart failure, unspecified; K21.9 Gastro-esophageal reflux disease without esophagitis; E78.00 Pure hypercholesterolemia, unspecified; K59.00 Constipation, unspecified; L97.529 Non-pressure chronic ulcer of other part of left foot with unspecified severity; B95.62 Methicillin resistant Staphylococcus aureus infection as the cause of diseases classified elsewhere; B96.20 Unspecified Escherichia coli [E. coli] as the cause of diseases classified elsewhere
CPT/HCPCS: 36415; 36569; 70450-TC; 71045-TC; 72170-TC; 72192-TC; 80048-TC; 80053-TC; 80076-TC; 80150; 80202-TC; 81000-TC; 82570-TC; 82728-TC; 83540-TC; 83605-TC; 83735-TC; 84100-TC; 84133-TC; 84134-TC; 84300-TC; 84484-TC; 85025-TC; 85027-TC; 85652-TC; 85730-TC; 86140-TC; 86850-TC; 86921-TC; 87040-TC; 87070-TC; 87081-TC; 87086-TC; 87186-TC; 90935-TC; 92521; 92526; A4216; A4217; A4606; A6253; A6402; A6403; J0278; J0696; J0885; J1956; J2185; J3370; J3480; J3490; J7030; J7040; J7050; J7060; P9016-BL; Z7610